=== PATIENT | female | born 1940 | race Caucasian/White ===

== ENCOUNTER 2018-03-30 19:53 | Observation (INO) ==
[2018-03-30 21:35] LABS: BASO# 0.03 X1000 (0.0-0.2); BASO% 0.3 % (0.0-0.8); HEMATOCRIT 39.7 % (37.0-47.0); IMM GRAN# 0.06 X1000 (0.0-0.04); IMM GRAN% 0.6 % (0.0-0.5); LYMPH# 1.03 X1000 (1.2-3.4); LYMPH% 10.8 % (20.5-51.1); MCHC 32.7 g/dL (33-37); MCV 94.5 FL (81-99); MONO# 1.03 X1000 (0.11-0.59); MONO% 10.8 % (1.7-9.3); MPV 10.7 FL (7.4-10.4); NEUT# 7.29 X1000 (1.4-6.5); NEUT% 76.5 % (42.2-75.2); PLT 316 X1000 (130-400); WBC 9.54 X1000 (4.8-10.8)
[2018-03-30 21:51] LABS: AGAP 12; ALBUMIN 3.8 g/dL (3.5-5.0); ALKALINE PHOSPHATASE 87 U/L (32-104); BUN 25 mg/dL (8-22); CALCIUM 9.7 mg/dL (8.8-10.2); CHLORIDE 94 mmol/L (98-107); COSMO 277; CREATININE 1.2 mg/dL (0.5-0.9); ESTIMATED GFR 43; GLUCOSE 216 mg/dL (70-104); GOT 13 U/L (10-30); GPT 7 U/L (10-36); POTASSIUM 4.6 mmol/L (3.5-5.1); SODIUM 133 mmol/L (136-145); TCO2 27 mmol/L (25-35); TOTAL BILIRUBIN < 0.15 mg/dL (0.20-1.00); TOTAL PROTEIN 7.4 g/dL (6.3-8.3)
--- NOTE | 2018-03-30 22:33 | PROVIDER DOCUMENTATION ---
This chart was entered by Oneida Sanchez Scribe, acting as scribe for Gustavo Lawton MD. HPI-General Adult - General Chief Complaint: Ingestion,Accidental Stated Complaint: ACCIDENTAL INGESTION Time Seen by Provider: 03/30/18 21:00 Source: patient, family Allergies/Adverse Reactions: Patient Allergies Allergy/AdvReac Type Severity Reaction Status Date / Time sulfamethoxazole Allergy Severe SWELLING Verified 11/18/17 08:56 [From Bactrim] trimethoprim [From Bactrim] Allergy Severe SWELLING Verified 11/18/17 08:56 morphine Allergy Unknown Verified 11/18/17 08:56 Home Medications: Home Medication List Medication Instructions Recorded Confirmed Last Taken Type Aspirin 81 mg PO DAILY 11/11/12 07/21/17 07/21/17 09:00 History Gabapentin Enacarbil [Horizant] 600 mg PO BID 04/04/15 07/21/17 07/21/17 09:00 History Methocarbamol [Robaxin] 500 mg PO TID 04/04/15 07/21/17 04/03/15 History Amlodipine Besylate/Benazepril 1 each PO DAILY #30 capsule 04/08/15 07/21/17 09:00 Rx [Lotrel 10/20 mg Capsule] L.acidoph,Paracasei, B.lactis 1 each PO 07/21/17 07/21/17 09:00 History [Probiotic] Polyethylene Glycol 3350 [Miralax] 17 gm PO EVERY OTHER DAY 07/21/17 07/21/17 08:00 History Amoxicillin/Potassium Clav 1 ea PO BID #14 tab 07/23/17 Unknown Rx [Augmentin 875-125 Tablet] - History of Present Illness -Gen Adult Nature of Presenting Problems: 77 yof presents to ED c/o of taking 8 300mg Tramadol ER accidently. Pt states she puts her normal morning meds in an empty pill bottle on nightstand to take in the morning and pt had put the bottle of tramadol beside the other bottle and then took the wrong bottle of pills. PT states she immediately knew she took wrong pills and was at the ED within 5 mins. PT has HX of HTN and neuropathy. PT denies nausea, vomitting, diarrhea, chest apin. Severity: reports: mild Onset/Duration: reports: just prior to arrival Review of Systems - Adult - REVIEW OF SYSTEMS - ADULT Constitutional: denies: chills, fever Eyes: reports: no symptoms reported Ears, Nose, Mouth & Throat: reports: no symptoms reported Cardiovascular: reports: no symptoms reported Respiratory: reports: no symptoms reported Gastrointestinal: reports: no symptoms reported Genitourinary: reports: no symptoms reported Musculoskeletal: reports: no symptoms reported Integumentary: reports: no symptoms reported Neurological: reports: no symptoms reported Psychiatric: reports: no symptoms reported Endocrine: reports: no symptoms reported Hematologic/Lymphatic: reports: no symptoms reported Allergic/Immunologic: reports: no symptoms reported All Other Systems: Reviewed and Negative Past History - Adult - PAST MEDICAL HISTORY-ADULT Review of Records: reports: Nursing Assessment Review, Medications Reviewed Major Childhood Illnesses: reports: denies history Cardiovascular: reports: HTN Respiratory: reports: denies history Gastrointestinal: reports: denies history Obstetrical/Gynecological: reports: denies history Genitourinary: reports: denies history Musculoskeletal: reports: arthritis Neurological: reports: denies history Endocrine/Immune: reports: Diabetes Other Conditions: reports: denies history - PRIOR SURGERIES/PROCEDURES Surgical/Procedure History: reports: orthopedic (extremity) (right foot) - PRIOR HOSPITALIZATIONS Prior Hospitalizations: reports: none - IMMUNIZATION STATUS Childhood Immunizations: See Nurse Assessment Flu Vaccine: See Nurse Assessment - FAMILY HISTORY Family History: reviewed, not pertinent Physical Exam-General - PHYSICAL EXAM-ADULT Initial Vital Signs Reviewed: Yes - CONSTITUTIONAL General Appearance: alert, no apparent distress - EYES Eyes: PERRL/EOMI, pink conjunctivae - HEAD, EARS, NOSE, MOUTH & THROAT HENMT: normocephalic/atraumatic, moist mucous membranes, normal ENT inspection - NECK Neck: supple, normal inspection - RESPIRATORY Respiratory: chest non-tender, lungs clear, normal breath sounds - CARDIOVASCULAR Cardiovascular: normal peripheral pulses, regular rate, rhythm, no edema - GASTROINTESTINAL (ABDOMEN) Abdominal Exam: normal bowel sounds, non tender, soft - LYMPHATIC Lymphatic: no adenopathy - MUSCULOSKELETAL Back Exam: normal inspection, no CVA tenderness, no vertebral tenderness Extremity: normal range of motion, non-tender - SKIN Integumentary: normal color, normal turgor, warm/dry - NEUROLOGIC Neurologic: grossly normal, no motor/sensory deficits - PSYCHIATRIC Psych/Mental Status: normal mood/affect, normal thought content, normal thought process, oriented x 3 Progress - PLAN OF CARE/RESULTS Progress/Plan/Lab Results: Vital Signs - 8 hr 03/30/18 19:58 03/30/18 21:16 Temperature 98 F Pulse Rate 111 H 83 Respiratory Rate 18 18 Blood Pressure 121/63 O2 Sat by Pulse Oximetry 99 95 Orders Category Date Time Status Saline Loc NOW Care 03/30/18 21:27 Active CBC WITH ELECTRONIC DIFF [HEME] Stat Lab 03/30/18 21:22 Received CMP [COMPREHENSIVE METABOLIC PANEL] [CHEM] Stat Lab 03/30/18 21:22 Received ua [URINALYSIS PL W/POSS RFLX CULT] [URINALYSIS] Stat Lab 03/30/18 21:08 Uncollected Result Diagrams: 03/30/18 21:22 03/30/18 21:22 - REASSESSMENT Reassessment #1 Time Reassessed: 22:00 (pt had not worsened she was in no distress) Status: unchanged - CONSULTS/PCP/HOSPITALIST Notification #1 *Consult/PCP/Hospitalist*: Time Discussed: 22:46 Consult Disposition: Admit (FOR OBSERVATION) Departure - Departure Date of Disposition Decision: 03/30/18 Time of Disposition Decision: 22:30 DIAGNOSIS: Accidental drug ingestion Qualifiers: Encounter type: initial encounter Qualified Code(s): T50.901A - Poisoning by unspecified drugs, medicaments and biological substances, accidental ( unintentional), initial encounter Disposition: ADMITTED INPATIENT 09 Certified Medical Emergency: Emergent Condition: Stable Referrals and Follow-Ups: None,PCP [Primary Care Provider] - - Critical Care Note This patient required my direct & personal management of CC.: No Attestation - Physician/ ISIS Attestation Patient care was provided by Advanced Practice Provider:: No The physician spent face to face time with patient:: Yes Advanced Practice Provider documentation review:: Supervising physician onsite and consulted in the evaluation and care of this patient. The physician did have a face to face encounter with the patient. This chart was documented by the indicated scribe, (Oneida Sanchez Scribe) and accurately reflects the services I performed and decisions made by me, Gustavo Lawton MD, as attested by the provider's signature.
[2018-03-30 22:40] LABS: BILIRUBIN URINE NEGATIVE (NEGATIVE); BLOOD URINE NEGATIVE (NEGATIVE); CLARITY CLEAR (CLEAR); COLOR YELLOW; GLUCOSE URINE NEGATIVE (NEGATIVE); KETONE URINE NEGATIVE (NEGATIVE); LEUKOCYTES URINE 1+ (NEGATIVE); NITRITE URINE NEGATIVE (NEGATIVE); PH URINE 6.5; PROTEIN URINE NEGATIVE (NEGATIVE); UROBILINOGEN URINE NORMAL
[2018-03-30 22:49] LABS: URINE BACTERIA 4+ /HFP; URINE EPITHELIAL CELLS <10 /HPF (<10); URINE RBC <10 /HPF (<10); URINE SOURCE CLEAN CATCH; URINE WBC <10 /HPF (<10)
[2018-03-30] MEDS ORDERED: ZOFRAN IV ONE (23:20)
[2018-03-31] MEDS ORDERED: TYLENOL PO PRN (00:32)
[2018-03-31] MEDS ORDERED: NS 500 ML IV ONE (00:32)
[2018-03-31] MEDS: NS 1,000 ML IV SCH ×3 (01:06→23:47)
[2018-03-31] MEDS: LOVENOX SUBQ SCH ×2 (01:06→23:48)
[2018-03-31] MEDS: ZOFRAN IV PRN ×4 (05:49→18:58)
[2018-03-31] MEDS: PRILOSEC PO SCH ×2 (06:02→15:09)
[2018-03-31 07:04] LABS: BASO# 0.02 X1000 (0.0-0.2); BASO% 0.2 % (0.0-0.8); EOS# 0.11 X1000 (0.0-0.7); EOS% 1.3 % (0.0-10.0); HEMATOCRIT 39.1 % (37.0-47.0); HEMOGLOBIN 12.6 g/dL (12.0-16.0); IMM GRAN# 0.03 X1000 (0.0-0.04); IMM GRAN% 0.4 % (0.0-0.5); LYMPH# 1.24 X1000 (1.2-3.4); LYMPH% 15.2 % (20.5-51.1); MCH 30.6 PG (27-31); MCHC 32.2 g/dL (33-37); MCV 94.9 FL (81-99); MONO% 9.8 % (1.7-9.3); MPV 10.5 FL (7.4-10.4); NEUT# 5.95 X1000 (1.4-6.5); NEUT% 73.1 % (42.2-75.2); PLT 326 X1000 (130-400); RBC 4.12 XMIL (4.2-5.4); WBC 8.15 X1000 (4.8-10.8)
[2018-03-31 07:18] LABS: CALCIUM 9.1 mg/dL (8.8-10.2); POTASSIUM 4.1 mmol/L (3.5-5.1)
--- NOTE | 2018-03-31 09:45 | EKG Report ---
Test Performed on : 03/31/2018 08:05:34 AM Test Reason : drug overdose Blood Pressure : / mmHG Vent. Rate : 071 BPM Atrial Rate : 071 BPM P-R Int : 160 ms QRS Dur : 110 ms QT Int : 414 ms P-R-T Axes : 047 -34 016 degrees QTc Int : 449 ms Normal sinus rhythm. Left axis deviation Low voltage QRS Nonspecific ST and T wave abnormality Abnormal ECG When compared with ECG of 21-JUL-2017 16:01, Nonspecific T wave abnormality now evident in Anterolateral leads Unconfirmed Result
--- NOTE | 2018-03-31 09:55 | HISTORY AND PHYSICAL ---
CHIEF COMPLAINT: Accidental overdose. HISTORY OF PRESENT ILLNESS: This is a 77-year-old female who presented to the emergency room after taking eight 300 mg tramadol pills. She reports having a bottle of tramadol as well as a bottle with her nighttime medications on her night stand. She picked up the wrong bottle and took the tramadol. She stated that she immediately knew what she did. She was in the ER within 5 minutes of ingestion. Poison Control was called and they recommended that the patient be monitored for 24 hours. At the time of my interview, the patient is sitting up in bed. She is awake and alert. She is oriented and she has no complaints. PAST MEDICAL HISTORY: Diabetes, hypertension, hyperlipidemia. PAST SURGICAL HISTORY: Right hip fracture, right second toe partial amputation. ALLERGIES: Bactrim. HOME MEDICATIONS: A list will be obtained by the nursing staff and once verified, we will restart as is appropriate. REVIEW OF SYSTEMS: Discussed with patient with pertinent positives stated in the HPI. She denies any syncope, dizziness, chest pain, palpitations, shortness of breath, cough, fever, chills, nausea, vomiting, diarrhea, constipation, black or bloody vomitus or stools, hematuria, dysuria, frequency, or urgency. PHYSICAL EXAMINATION: GENERAL: This is a 77-year-old female who is sitting up in the bed in no distress. VITAL SIGNS: Blood pressure is 137/69, heart rate of 72, respirations are 18, temperature is 97.6 degrees oral, with room air saturations of 94%. EYES: Pupils equal, round, and react to light. EOMs are intact. Sclerae anicteric. HENT: Head is normocephalic, atraumatic. Mucous membranes are moist. NECK: Supple with trachea midline. CARDIOVASCULAR: Regular rate and rhythm. S1 and S2 appreciated. She has no lower extremity edema. Peripheral pulses palpable x4 extremities. PULMONARY: Breath sounds are clear with no increased work of breathing noted GASTROINTESTINAL: Abdomen is soft, nontender, nondistended with bowel sounds in all 4 quadrants. NEUROLOGIC: She is alert and oriented x3. SKIN: Warm and dry. LABS: WBC is 9.5, with hemoglobin 13, hematocrit 39.7, and platelets of 316, 000. Sodium is 133, potassium 4.6, BUN 25, creatinine 1.2, with a glucose of 216. Urinalysis is essentially negative. ASSESSMENT: 1. Accidental drug ingestion of eight tramadol. 2. History of diabetes mellitus. 3. Hypertension. 4. Hyperlipidemia. 5. Acute kidney injury. PLAN: 1. The patient has been admitted to the medical/surgical floor and placed on telemetry, which we will continue. We will identify her home medications and continue these as appropriate. She will be placed on pattern of blood glucose with sliding scale insulin. Continue IV hydration recheck labs in the morning Further treatments pending hospital course. . Dictated by JESSIKA Dhillon for Raj Parnell MD This chart was documented by, JESSIKA Dhillon and accurately reflects the services performed, treatment plan and medical decisions as attested by the providers signature Raj Parnell MD. cc: JESSIKA Dhillon MD [facility]
[2018-03-31] MEDS: HUMALOG DOSE (PARKWAY) SUBQ SCH ×3 (13:52→20:31)
[2018-03-31] MEDS ORDERED: ATIVAN IV ONE (20:03)
[2018-03-31] MEDS: GRALISE PO SCH (20:27)
[2018-04-01] MEDS: HUMALOG DOSE (PARKWAY) SUBQ SCH (06:03)
[2018-04-01] MEDS: PRILOSEC PO SCH (06:04)
[2018-04-01 07:51] VITALS: BP 140/70
[2018-04-01] MEDS: ZOFRAN IV PRN (08:09)
[2018-04-01] MEDS: GRALISE PO SCH (08:12)
--- NOTE | 2018-04-01 12:12 | DISCHARGE SUMMARY ---
ADMISSION DATE: 03/30/2018 DISCHARGE DATE: 04/01/2018 DISCHARGE DIAGNOSES: 1. Accidental drug ingestion of tramadol. 2. History of diabetes. 3. History of hypertension. 4. History of dyslipidemia. 5. Acute kidney injury secondary to mild dehydration. HOSPITAL COURSE: Ms. Mendoza is a 77-year-old female who presented to the emergency department after accidental ingestion of 8 tramadol ER 300 mg tablets. She was in the ER within 5 minutes of ingestion and Poison Control was called, who recommended that the patient be monitored for 24 hours. The patient has been monitored for more than 24 hours here at the hospital and has been doing okay. She did have mild dehydration that was corrected with IV fluids. Her condition has improved as far as her dehydration is concerned but, otherwise, she has been overall stable and therefore will be discharged home today. DISCHARGE MEDICATIONS: 1. Gabapentin 600 mg orally twice daily. 2. Amlodipine/benazepril 10 mg/20 mg orally once daily. 3. Aspirin 81 mg orally once daily. 4. Methocarbamol 500 mg orally 3 times a day as needed for muscle spasms. 5. MiraLAX 17 g orally once daily. She will follow up with her PCP in approximately 1 week. cc: Shonda Ny MD
== END 2018-04-01 09:15 | disposition home or self-care (01) ==
LOC: P.MEDSURG 19:53 → P.ED 19:53 → SUATTDRO 19:54 → P.MEDSURG 03-31 10:23
PROVIDERS: ATTEND Internal Medicine
CPT/HCPCS: 80048; 80053; 81001; 82948; 85025; 87088; 93005; 96374; 99285; A9270; J1650; J1815; J2060; J2405; J7030; J7040; XXXXX

== ENCOUNTER 2018-05-29 06:13 | Inpatient (IN) ==
[2018-05-29] MEDS ORDERED: NS 1,000 ML IV ONE ×2 (07:22→09:51)
[2018-05-29 07:39] LABS: BASO# 0.02 X1000 (0.0-0.2); BASO% 0.1 % (0.0-0.8); HEMATOCRIT 44.9 % (37.0-47.0); HEMOGLOBIN 14.8 g/dL (12.0-16.0); IMM GRAN# 0.11 X1000 (0.0-0.04); IMM GRAN% 0.6 % (0.0-0.5); LYMPH# 0.43 X1000 (1.2-3.4); LYMPH% 2.3 % (20.5-51.1); MCH 29.7 PG (27-31); MONO# 1.26 X1000 (0.11-0.59); MONO% 6.8 % (1.7-9.3); MPV 10.9 FL (7.4-10.4); NEUT% 90.2 % (42.2-75.2); PLT 631 X1000 (130-400); RBC 4.99 XMIL (4.2-5.4); RDW 14.2 % (11.5-14.5); WBC 18.42 X1000 (4.8-10.8)
--- NOTE | 2018-05-29 07:59 | Diag Imaging Result Doc PS360 ---
EXAM: CHEST-PORTABLE INDICATION: vomiting TECHNIQUE: One view COMPARISON: 11/11/2012 FINDINGS: There is evidence of prior granulomatous disease, stable. Inspiration is suboptimal. There is trace atelectasis at the left costophrenic angle in the right lower lung zone. The lungs are grossly clear, otherwise. There is stable mild elevation of the right hemidiaphragm. There is no discrete pleural fluid collection or pneumothorax. The cardiomediastinal silhouette and central vasculature are grossly unremarkable. IMPRESSION: Low lung volumes and minimal bibasilar atelectasis. Otherwise, no definite acute pathology. Electronically signed by Sudheer Randall 05/29/2018 7:57 AM
[2018-05-29 08:06] LABS: BE -4.5 mmoll (-3.0-3.0); BLOOD TYPE ARTERIAL; HCO3-(ACT) 21.1 mmoll (20.0-26.0); METHB 1.6 % (0.0-1.5); O2(CT) 17.5 mL/dL (15.0-23.0); PCO2(98.6) 36 mmHg (35-45); PO2(98.6) 54 mmHg (60-100); SAMPLE BLOOD; THB 14.2 g/dL (11.5-17.4); pH(98.6) 7.36 (7.35-7.45)
[2018-05-29 08:09] LABS: ALLEN TEST NO; MODALITY ROOM AIR; O2HB 87.8 % (95.0-99.0)
--- NOTE | 2018-05-29 08:39 | PROVIDER DOCUMENTATION ---
HPI-Abdominal Pain/GI Problem - General Chief Complaint: N/V/D Stated Complaint: vomiting Time Seen by Provider: 05/29/18 07:22 Source: patient, family Allergies/Adverse Reactions: Patient Allergies Allergy/AdvReac Type Severity Reaction Status Date / Time sulfamethoxazole Allergy Severe SWELLING Verified 05/27/18 09:38 [From Bactrim] trimethoprim [From Bactrim] Allergy Severe SWELLING Verified 05/27/18 09:38 morphine Allergy Unknown Verified 05/27/18 09:38 Home Medications: Home Medication List Medication Instructions Recorded Confirmed Last Taken Type Gabapentin Enacarbil [Horizant] 600 mg PO DAILY 04/04/15 05/29/18 07/21/17 09:00 History Methocarbamol [Robaxin] 500 mg PO TID 04/04/15 05/29/18 04/03/15 History L.acidoph,Paracasei, B.lactis 1 each PO DAILY 07/21/17 05/29/18 07/21/17 09:00 History [Probiotic] Polyethylene Glycol 3350 [Miralax] 17 gm PO EVERY OTHER DAY 07/21/17 05/29/18 07/20/17 08:00 History Meclizine [Antivert] 12.5 mg PO TID PRN PRN #20 tab 05/27/18 05/29/18 Unknown Rx Doxycycline 100 mg PO BID #10 tab 06/02/18 Unknown Rx Oxybutynin [Ditropan] 5 mg PO DAILY #30 tab 06/02/18 Unknown Rx Pantoprazole [Protonix] 40 mg PO BID@0700,2100 #120 tab 06/02/18 Unknown Rx Tramadol HCl [Tramadol HCl ER] 300 mg PO DAILY #20 tab.er.24h 06/02/18 Unknown Rx - History of Present Illness-ABD Nature of Presenting Problems: had a visit here 2 days ago dizzy and nauseated returns with nv diarrhea low bp marginal intake after good day yesterday Abdominal Pain Onset Location: reports: generalized abdomen Pain Radiation: reports: no radiation Quality of Pain: reports: fullness Onset/Duration: reports: 5 days ago Timing: reports: still present, getting worse Activities at Onset: reports: light activity Exposure to sick contacts?: No Modifying Factors: improves with: other medication Associated Symptoms: reports: diarrhea, loss of appetite, malaise, vomiting. denies: fever/chills Last BM: this morning Dark Stools Present?: reports: none noticed Rectal Bleeding: reports: none Rectal Pain: reports: none Emesis Description: reports: clear Bruising or Bleeding Gums?: No Similar Symptoms Previously?: Yes Recently seen or treated by another doctor?: No Review of Systems - Adult - REVIEW OF SYSTEMS - ADULT Constitutional: reports: chills, fever Eyes: reports: no symptoms reported Ears, Nose, Mouth & Throat: reports: no symptoms reported Cardiovascular: reports: no symptoms reported Respiratory: reports: no symptoms reported Gastrointestinal: reports: see HPI Genitourinary: reports: no symptoms reported Musculoskeletal: reports: no symptoms reported Integumentary: reports: no symptoms reported Neurological: reports: no symptoms reported Psychiatric: reports: no symptoms reported Endocrine: reports: no symptoms reported Hematologic/Lymphatic: reports: no symptoms reported Allergic/Immunologic: reports: no symptoms reported All Other Systems: Reviewed and Negative Past History - Adult - PAST MEDICAL HISTORY-ADULT Review of Records: reports: Nursing Assessment Review, Medications Reviewed, Social history reviewed & non-contributory. Major Childhood Illnesses: reports: denies history Cardiovascular: reports: HTN Respiratory: reports: denies history Gastrointestinal: reports: denies history Obstetrical/Gynecological: reports: denies history Genitourinary: reports: denies history Musculoskeletal: reports: arthritis Neurological: reports: denies history Endocrine/Immune: reports: Diabetes Other Conditions: reports: denies history - PRIOR SURGERIES/PROCEDURES Surgical/Procedure History: reports: orthopedic (extremity) (right foot) - PRIOR HOSPITALIZATIONS Prior Hospitalizations: reports: none - IMMUNIZATION STATUS Childhood Immunizations: See Nurse Assessment Flu Vaccine: See Nurse Assessment - FAMILY HISTORY Family History: reviewed, not pertinent Physical Exam-General - PHYSICAL EXAM-ADULT Initial Vital Signs Reviewed: Yes - CONSTITUTIONAL General Appearance: mild distress - EYES Eyes: PERRL/EOMI, pink conjunctivae - HEAD, EARS, NOSE, MOUTH & THROAT HENMT: normocephalic/atraumatic. negative: moist mucous membranes - NECK Neck: supple - RESPIRATORY Respiratory: lungs clear. negative: rhonchi, wheezing - CARDIOVASCULAR Cardiovascular: regular rate, rhythm - GASTROINTESTINAL (ABDOMEN) Abdominal Exam: normal bowel sounds, non tender, soft - LYMPHATIC Lymphatic: no adenopathy - MUSCULOSKELETAL Back Exam: normal inspection Extremity: normal range of motion - SKIN Integumentary: normal color - NEUROLOGIC Neurologic: grossly normal - PSYCHIATRIC Psych/Mental Status: oriented x 3 Progress - PLAN OF CARE/RESULTS Progress/Plan/Lab Results: Vital Signs - 8 hr 05/29/18 06:17 05/29/18 06:56 05/29/18 07:29 Temperature 98.1 F Pulse Rate 98 H 101 H Respiratory Rate 18 19 Blood Pressure 92/61 87/53 O2 Sat by Pulse Oximetry 98 91 L 05/29/18 07:51 05/29/18 08:29 Temperature Pulse Rate 94 H 86 Respiratory Rate 18 18 Blood Pressure 98/58 111/60 O2 Sat by Pulse Oximetry 99 97 Laboratory Results - last 24 hr 05/29/18 05/29/18 06:20 07:53 WBC 18.42 H D RBC 4.99 Hgb 14.8 Hct 44.9 MCV 90.0 MCH 29.7 MCHC 33.0 RDW Std Deviation 14.2 Plt Count 631 H MPV 10.9 H Immature Gran % (Auto) 0.6 H Neut % (Auto) 90.2 H Lymph % (Auto) 2.3 L [place] % (Auto) 6.8 Eos % (Auto) 0.0 Baso % (Auto) 0.1 Immature Gran # (Auto) 0.11 H Neut # (Auto) 16.60 H Lymph # (Auto) 0.43 L [place] # (Auto) 1.26 H Eos # (Auto) 0.00 Baso # (Auto) 0.02 Specimen Type ARTERIAL Sample Site L BRACHIAL pH 7.36 pCO2 36 pO2 54 L HCO3 21.1 Base Excess -4.5 L Oxyhemoglobin 87.8 L* ABG O2 Sat (Calculated) 17.5 ABG O2 Saturation 91.0 L ABG Carboxyhemoglobin 1.90 ABG Methemoglobin 1.6 H Ian Test NO A-a O2 Difference 51.0 Total Hemoglobin 14.2 Lactate 1.40 Blood Gas Modality ROOM AIR FiO2 % 21.0 Orders Category Date Time Status CHEST-PORTABLE [RAD] Stat Exams 05/29/18 07:25 Completed ABG [RESP] Routine Lab 05/29/18 07:53 Completed AMYLASE [CHEM] Stat Lab 05/29/18 08:25 Received BLOOD CULTURE [BLDCUL] Stat Lab 05/29/18 07:42 Ordered CBC WITH ELECTRONIC DIFF [HEME] Stat Lab 05/29/18 06:20 Completed COMPREHENSIVE METABOLIC PANEL [CHEM] Stat Lab 05/29/18 08:25 Received LACTATE, PLASMA [CHEM] Stat Lab 05/29/18 08:25 Received LIPASE [CHEM] Stat Lab 05/29/18 08:[address] W/POSS RFLX CULT [URINALYSIS] Stat Lab 05/29/18 07:23 Uncollected 0.9% Sodium Chloride Inj [Ns] 1,000 ml Med 05/29/18 07:22 Discontinued IV 999 mls/hr Result Diagrams: 06/02/18 05:35 06/02/18 05:35 - XRAY 1 XRAY Study: Chest Impression: Abnormal (low lung volume) Departure - Departure Date of Disposition Decision: 05/29/18 Time of Disposition Decision: 07:00 DIAGNOSIS: Nausea & vomiting, Diarrhea Disposition: ADMITTED INPATIENT 09 Certified Medical Emergency: Emergent Condition: Stable - Critical Care Note This patient required my direct & personal management of CC.: No Attestation - Physician/ ISIS Attestation The physician spent face to face time with patient:: Yes Advanced Practice Provider documentation review:: Supervising physician onsite and consulted in the evaluation and care of this patient. The physician did have a face to face encounter with the patient.
[2018-05-29 08:55] LABS: ALBUMIN 3.4 g/dL (3.5-5.0); CALCIUM 8.8 mg/dL (8.8-10.2); CREATININE 1.8 mg/dL (0.5-0.9); TOTAL BILIRUBIN 0.6 mg/dL (0.20-1.00); TOTAL PROTEIN 6.5 g/dL (6.3-8.3)
[2018-05-29] MEDS ORDERED: ZOSYN 3.375 GM in NS 50 ML IV ONE (08:59)
[2018-05-29] MEDS ORDERED: NS 1,000 ML ONE (09:28)
[2018-05-29 09:33] LABS: BILIRUBIN URINE 2+ (NEGATIVE); BLOOD URINE TRACE (NEGATIVE); CLARITY CLEAR (CLEAR); COLOR AMBER; GLUCOSE URINE NEGATIVE (NEGATIVE); KETONE URINE TRACE mg/dL (NEGATIVE); LEUKOCYTES URINE 1+ (NEGATIVE); NITRITE URINE NEGATIVE (NEGATIVE); PH URINE 6.5; PROTEIN URINE 1+(30 mg/dL) mg/dL (NEGATIVE); SP GRAVITY URINE 1.015; UROBILINOGEN URINE 8 mg/dL
[2018-05-29 09:45] LABS: URINE EPITHELIAL CELLS <10 /HPF (<10); URINE RBC <10 /HPF (<10); URINE SOURCE CATH
[2018-05-29 09:47] LABS: URINE BACTERIA 1+ /HFP
[2018-05-29] MEDS ORDERED: TYLENOL PO PRN (11:04)
[2018-05-29] MEDS ORDERED: ZOFRAN IV PRN (11:04)
[2018-05-29 12:47] LABS: OCCULT BLOOD 1 POSITIVE (NEGATIVE)
[2018-05-29] MEDS ORDERED: ANTIVERT PO PRN (13:59)
[2018-05-29] MEDS: ZOSYN 3.375 GM in NS 50 ML IV SCH ×2 (15:24→21:53)
--- NOTE | 2018-05-29 15:47 | HISTORY AND PHYSICAL ---
CHIEF COMPLAINT: Nausea and vomiting. HISTORY OF PRESENT ILLNESS: The majority of the history is per the patient's daughter as patient is somewhat somnolent. She does arouse but does not answer questions. The daughter notes that for the past 2 months, Ms. Mendoza has had increasing nausea, vomiting, diarrhea, decreasing alertness, increasing fatigue. She has been to several different doctors, been to the ER a couple of times. Has not had an EGD but that was the next step. However, this time, her symptoms continued to worsen and therefore they brought her to the ER. She was just recently brought to the ER and had episodes of dizziness, was placed on Antivert. ALLERGIES: Bactrim causing swelling. Morphine causing an unknown reaction. MEDICATIONS: Aspirin, [*] mg daily, Robaxin, Lotrel 12/25, and Antivert recently started. REVIEW OF SYSTEMS: Essentially obtained from the daughter due to the patient not answering questions. The daughter denies any known fevers, chills. Denies any hematemesis, hematochezia, or melena. Denies any urinary complaints, fevers, chills, cough, congestion, shortness of breath. Does note that she has had nausea, vomiting, diarrhea. The diarrhea has just recently started and is becoming more severe. She has had a decrease in oral intake over the past several days. Denies any focalized weakness. FAMILY HISTORY: Noncontributory. PAST MEDICAL HISTORY: Significant for hypertension, diabetes. She has had foot surgery in the past. SOCIAL HISTORY: She is and lives at home. She does not smoke or drink. Her family takes care of her. PHYSICAL EXAMINATION: VITAL SIGNS: Reviewed. Temperature 98.1 degrees, pulse 98, respiratory rate 18, BP 87/53 to 92/61, saturations 91 to 98 percent on room air. GENERAL: Patient is awake, although she does not answer questions. HEENT: Normocephalic. NECK: Supple. CARDIOVASCULAR: Regular rate. CHEST: Clear and unlabored. No crackles. ABDOMEN: Soft. Diffusely tender, more so in the epigastric region. EXTREMITIES: Moves all extremities. NEUROLOGIC: No changes. ASSESSMENT: 1. Nausea and vomiting. 2. Hypotension. 3. Leukocytosis. 4. Heme-positive stool with stable hemoglobin and hematocrit. 5. Diarrhea, negative for Clostridium difficile. 6. Epigastric pain, certainly concerning for peptic ulcer disease. 7. Generalized weakness. 8. Diabetes. PLAN: We will continue the patient in the hospital. We will continue to follow. Place her on IV normal saline at [address] her on a Protonix drip and use Carafate. Hold her blood pressure medication. If her symptoms improve, then she will continue this course. If not, she will need to have an esophagogastroduodenoscopy. cc: Hussain Han MD
[2018-05-29] MEDS: ROBAXIN PO PRN (20:36)
[2018-05-29] MEDS: PATIENT'S OWN MED PO SCH (20:37)
[2018-05-29] MEDS: NS 1,000 ML IV SCH (21:53)
[2018-05-30] MEDS: ZOSYN 3.375 GM in NS 50 ML IV SCH ×5 (03:06→22:39)
[2018-05-30] MEDS: ROBAXIN PO PRN (04:02)
[2018-05-30] MEDS ORDERED: AMLODIPINE BESYLATE PO SCH (09:00)
[2018-05-30] MEDS ORDERED: LOTENSIN PO SCH (09:00)
[2018-05-30] MEDS ORDERED: [UNRECOGNIZED DRUG - OTHER] PO SCH (09:00)
[2018-05-30] MEDS ORDERED: NORVASC PO SCH (09:00)
[2018-05-30] MEDS ORDERED: ASPIRIN PO SCH (09:00)
[2018-05-30] MEDS ORDERED: BENAZEPRIL PO SCH (09:00)
[2018-05-30 09:03] LABS: HEMATOCRIT 38.5 % (37.0-47.0); MCH 29.9 PG (27-31); MCHC 33.8 g/dL (33-37); MCV 88.5 FL (81-99); MPV 10.2 FL (7.4-10.4); RBC 4.35 XMIL (4.2-5.4); RDW 14.1 % (11.5-14.5); WBC 16.89 X1000 (4.8-10.8)
[2018-05-30 09:20] LABS: AGAP 15; ALBUMIN 2.6 g/dL (3.5-5.0); ALKALINE PHOSPHATASE 84 U/L (32-104); BUN 36 mg/dL (8-22); CALCIUM 7.8 mg/dL (8.8-10.2); CHLORIDE 98 mmol/L (98-107); COSMO 280; CREATININE 1.5 mg/dL (0.5-0.9); ESTIMATED GFR 34; GLUCOSE 161 mg/dL (70-104); GOT 21 U/L (10-30); GPT < 5 U/L (10-36); POTASSIUM 4.9 mmol/L (3.5-5.1); SODIUM 134 mmol/L (136-145); TCO2 21 mmol/L (25-35); TOTAL PROTEIN 5.5 g/dL (6.3-8.3)
[2018-05-30] MEDS: SODIUM CHLORIDE 0.9% INJ SCH (10:36)
[2018-05-30] MEDS: PROTONIX IV SCH ×2 (10:36→20:56)
[2018-05-30] MEDS: CULTURELLE PO SCH (10:36)
[2018-05-30] MEDS: PATIENT'S OWN MED PO SCH (10:36)
[2018-05-30] MEDS: NS 1,000 ML IV SCH ×2 (10:37→19:30)
[2018-05-30] MEDS ORDERED: NS 500 ML IV ONE (12:50)
[2018-05-30] MEDS: PATIENT'S OWN MED (CONTROLLED) PO SCH (12:56)
--- NOTE | 2018-05-30 14:11 | PROGRESS NOTE ---
DATE: 05/30/2018 SUBJECTIVE: The patient has no focal complaints. She says her blood pressure is always low, but she takes Lotrel for blood pressure. She does seem to be a bit more lethargic than usual, although again I do not know her baseline very well. But in any case, blood pressure has been low overnight into the 80s. There was a documented 67/36. We had ordered her a bolus. She had a blood pressure earlier this morning of 77, 80. She has been systematically low and tachycardic. OBJECTIVE: Vital Signs: Again, her last blood pressure as she is getting a bolus is about 102/49, but she had one 15 minutes ago, 67/36 with a heart rate in the 110s. She is afebrile. Regular rate and rhythm. Respiratory rate stable. Cardiovascular: Regular rate and rhythm. Pulmonary: Bilateral breath sounds. Clear to auscultation. GI: Soft, nontender, nondistended. Bowel sounds are positive. LABORATORY DATA: Her creatinine is down to 1.5. Her plasma lactate is elevated at 2.5, but that is down from 3.6. Urine was possible 10 to 20 white blood cells and she is heme-positive, although there is no gross bleeding. PROBLEM LIST: 1. Hypotension. She states her baseline blood pressure is low, although she is not able to tell me what. She is on antihypertensives, so I can't imagine her blood pressure is that low. Her blood pressure on 05/27/2018, which is about 3 days ago, was 152/87. Her blood pressure actually runs high. This is a drop for her. I do not think it runs this low. Again she is not mentating that well. In any case, it could be sepsis, it could be hemorrhage. We will continue to follow closely. May be just profound dehydration and volume depletion. We will give her some more fluid. 2. Heme-positive stool. We will monitor her hemoglobin and hematocrit. She may need endoscopy, but at this point, she is not even anemic. 3. Acute kidney injury which is definitely an indication of poor perfusion despite her complaints. We will check electrolytes, renal ultrasound and follow closely. She is empirically on antibiotics with Zosyn. We will continue that and follow. DISPOSITION: Pending her clinical status, I am going to move her to the ICU though as she may require pressors and we will continue to follow closely. cc: Dvaon Daniels MD
[2018-05-30 14:12] LABS: HEMOGLOBIN 11.3 g/dL (12.0-16.0)
[2018-05-30 16:24] LABS: UR CREAT RANDOM 100.8 mg/dL (11-20); UR PROT RANDOM 53.3 mg/dL
[2018-05-30 16:29] LABS: BILIRUBIN URINE NEGATIVE (NEGATIVE); BLOOD URINE NEGATIVE (NEGATIVE); CLARITY CLEAR (CLEAR); COLOR AMBER; GLUCOSE URINE NEGATIVE (NEGATIVE); KETONE URINE TRACE mg/dL (NEGATIVE); LEUKOCYTES URINE TRACE (NEGATIVE); NITRITE URINE NEGATIVE (NEGATIVE); PH URINE 6.5; PROTEIN URINE TRACE mg/dL (NEGATIVE); SP GRAVITY URINE 1.015; UROBILINOGEN URINE 1 mg/dL
[2018-05-30 16:36] LABS: URINE BACTERIA NEGATIVE /HFP; URINE CAST NONE SEEN /LPF; URINE CRYSTAL NONE SEEN /HPF; URINE EPITHELIAL CELLS <10 /HPF (<10); URINE RBC <10 /HPF (<10); URINE SOURCE CATH; URINE WBC <10 /HPF (<10); URINE YEAST NONE SEEN /HPF
[2018-05-31] MEDS: ZOSYN 3.375 GM in NS 50 ML IV SCH ×4 (04:42→21:33)
[2018-05-31] MEDS: NS 1,000 ML IV SCH ×2 (04:42→15:34)
[2018-05-31 07:19] LABS: BASO# 0.02 X1000 (0.0-0.2); BASO% 0.2 % (0.0-0.8); EOS# 0.04 X1000 (0.0-0.7); EOS% 0.4 % (0.0-10.0); HEMATOCRIT 36.9 % (37.0-47.0); HEMOGLOBIN 12.3 g/dL (12.0-16.0); IMM GRAN# 0.04 X1000 (0.0-0.04); IMM GRAN% 0.4 % (0.0-0.5); LYMPH# 0.45 X1000 (1.2-3.4); LYMPH% 4.8 % (20.5-51.1); MCH 29.4 PG (27-31); MCHC 33.3 g/dL (33-37); MCV 88.1 FL (81-99); MONO# 1.07 X1000 (0.11-0.59); MONO% 11.5 % (1.7-9.3); MPV 10.5 FL (7.4-10.4); NEUT# 7.69 X1000 (1.4-6.5); NEUT% 82.7 % (42.2-75.2); PLT 421 X1000 (130-400); RBC 4.19 XMIL (4.2-5.4); RDW 13.9 % (11.5-14.5); WBC 9.31 X1000 (4.8-10.8)
[2018-05-31 07:35] LABS: AGAP 13; ALBUMIN 2.2 g/dL (3.5-5.0); ALKALINE PHOSPHATASE 83 U/L (32-104); BUN 23 mg/dL (8-22); CHLORIDE 101 mmol/L (98-107); COSMO 276; CREATININE 0.8 mg/dL (0.5-0.9); ESTIMATED GFR > 60; GLUCOSE 102 mg/dL (70-104); GOT 20 U/L (10-30); GPT 7 U/L (10-36); POTASSIUM 4.2 mmol/L (3.5-5.1); SODIUM 136 mmol/L (136-145); TCO2 22 mmol/L (25-35); TOTAL PROTEIN 4.4 g/dL (6.3-8.3)
[2018-05-31 07:49] LABS: BANDS 8 % (0-1); LYMPHS 3 % (21-51); MONO 9 % (1-9); SEGS 80 % (42-75)
[2018-05-31] MEDS: SODIUM CHLORIDE 0.9% INJ SCH ×2 (08:32→20:34)
[2018-05-31] MEDS: PROTONIX IV SCH ×2 (08:32→20:34)
[2018-05-31] MEDS: PATIENT'S OWN MED PO SCH (09:36)
[2018-05-31] MEDS: PATIENT'S OWN MED (CONTROLLED) PO SCH (09:36)
[2018-05-31] MEDS: CULTURELLE PO SCH (09:36)
[2018-05-31] MEDS ORDERED: ZOFRAN IV PRN (11:46)
--- NOTE | 2018-05-31 12:17 | PROGRESS NOTE ---
DATE: 05/31/2018 SUBJECTIVE: She is looking a lot better, and not as tired. She just seems like she is looking better. More awake and more alert. OBJECTIVE: Blood pressure says 73/40, but when I was in there it was 120/140 systolic, so I think her blood pressure has improved. She seems to be doing better.Cardiovascular: Regular rate and rhythm. Pulmonary: Bilateral breath sounds. Clear to auscultation. GI: Soft, nontender, and nondistended. Bowel sounds positive. LABORATORY DATA: Her white count is 9. Hemoglobin and hematocrit 12 and 36, platelets 421,000. Her hemoglobin and hematocrit dropped to 11 and 34, and 13 and 35 yesterday. Chemistries: Her creatinine is down to 0.8. Her lactate I guess had come down, but seems to be improved. Her testing was negative as far as her diarrhea has resolved. PROBLEMS: 1. Hypotension, transient, likely related to dehydration. Her blood pressure seems to be stabilizing. I am going to continue to monitor her and follow closely. 2. Heme-positive stool. No gross evidence of bleeding. Her hemoglobin and hematocrit has dropped a bit after hydration, but it has been stable overnight. We are holding off on doing any other instrumentation at this point. 3. Acute kidney injury that also seems to be improved. We will continue electrolytes and follow. 4. Possible sepsis. Although there is not really a clear source, we will continue to monitor. Her stool studies are negative. Urine is negative. Her cultures, blood, and urine are all negative. DISPOSITION: We will start to work on ambulating and seeing how she does. Possible discharge in the next 24 hours. cc: Davon Daniels MD
[2018-06-01] MEDS: ZOSYN 3.375 GM in NS 50 ML IV SCH ×3 (03:48→18:52)
[2018-06-01] MEDS: NS 1,000 ML IV SCH ×2 (03:48→06:04)
[2018-06-01] MEDS ORDERED: DITROPAN PO ONE (05:20)
[2018-06-01 06:51] LABS: BASO# 0.01 X1000 (0.0-0.2); BASO% 0.1 % (0.0-0.8); EOS% 1.2 % (0.0-10.0); HEMOGLOBIN 11.7 g/dL (12.0-16.0); IMM GRAN# 0.06 X1000 (0.0-0.04); IMM GRAN% 0.7 % (0.0-0.5); LYMPH# 0.34 X1000 (1.2-3.4); LYMPH% 4.2 % (20.5-51.1); MCH 28.5 PG (27-31); MCHC 32.5 g/dL (33-37); MCV 87.8 FL (81-99); MONO# 0.83 X1000 (0.11-0.59); MONO% 10.2 % (1.7-9.3); MPV 10.5 FL (7.4-10.4); NEUT# 6.79 X1000 (1.4-6.5); NEUT% 83.6 % (42.2-75.2); PLT 447 X1000 (130-400); RDW 13.8 % (11.5-14.5); WBC 8.13 X1000 (4.8-10.8)
[2018-06-01 07:25] LABS: AGAP 12; BUN 12 mg/dL (8-22); CALCIUM 7.7 mg/dL (8.8-10.2); CHLORIDE 100 mmol/L (98-107); COSMO 267; CREATININE 0.5 mg/dL (0.5-0.9); ESTIMATED GFR > 60; GLUCOSE 121 mg/dL (70-104); POTASSIUM 3.4 mmol/L (3.5-5.1); SODIUM 133 mmol/L (136-145); TCO2 20 mmol/L (25-35)
[2018-06-01] MEDS: CULTURELLE PO SCH (08:31)
[2018-06-01] MEDS: PATIENT'S OWN MED PO SCH (08:31)
[2018-06-01] MEDS: PROTONIX IV SCH ×2 (08:31→22:12)
[2018-06-01] MEDS: SODIUM CHLORIDE 0.9% INJ SCH (08:31)
[2018-06-01] MEDS: PATIENT'S OWN MED (CONTROLLED) PO SCH (08:49)
[2018-06-01] MEDS ORDERED: FLOMAX PO ONE (11:50)
--- NOTE | 2018-06-01 12:27 | PROGRESS NOTE ---
DATE: 06/01/2018 SUBJECTIVE: The patient has no focal complaints. OBJECTIVE: Blood pressure 112/69, heart rate of 80, respiratory rate 16, temperature 97.8 degrees and 99% on 2 L.Cardiovascular: Regular rate and rhythm. Pulmonary: Bilateral breath sounds. Clear to auscultation. GI: Soft, nontender, and nondistended. Bowel sounds are positive. LABORATORY DATA: Her white count is 8, hemoglobin and hematocrit 11 and 36, and platelets 447,000. Potassium 3.4. Rest of the numbers look okay. PROBLEM LIST: 1. Hypotension. That seems to have resolved so we are just going to kind of monitor her at this time. 2. Heme-positive stool, but hemoglobin and hematocrit is stable. No further bleeding. I think we can pursue workup as an outpatient although she is having some GI complaints. We will start off with plain films. Ultrasound may be required if unrevealing or if she continues to have symptoms, or we may need to pursue GI consult. 3. Acute kidney injury that is resolved. 4. Sepsis with possible pneumonia. She is currently only on Zosyn. I guess we will repeat her chest x-ray today too and see how she is doing. DISPOSITION: I anticipate we could probably discharge her tomorrow if she is stable. She is ambulating without difficulty. We are waiting on a floor bed. We will continue to monitor and work on weaning her off O2. She is having some urinary retention, but that may be multifactorial. I have started Flomax and oxybutynin. We will see how she does. cc: Davon Daniels MD
--- NOTE | 2018-06-01 12:54 | Diag Imaging Result Doc PS360 ---
EXAM: CHEST-2 VIEWS HISTORY: hypoxia TECHNIQUE: PA and Lateral chest x-ray COMPARISON: 05/29/2018 FINDINGS: The cardiomediastinal silhouette is within normal limits. The pulmonary vasculature is not congested. There is a developing left lower lobe infiltrate and effusion. Right lung is clear. No pneumothorax is appreciated. There is a calcified granuloma peripheral left lung and atherosclerotic calcification is noted within the aorta . IMPRESSION: New left lower lobe infiltrate and effusion. Electronically signed by Dorcas Galeas 06/01/2018 12:52 PM
--- NOTE | 2018-06-01 13:00 | Diag Imaging Result Doc PS360 ---
EXAM: ABDOMEN FLAT/UPRIGHT HISTORY: nausea/emesis TECHNIQUE: Two views COMPARISON: None. FINDINGS: There is moderate distention of the transverse colon and cecum. Rectal gas is present. No evidence for obstruction. There is no small bowel distention. There is possible thumbprinting of the descending colon which may indicate bowel wall edema. No free air or mass effect is appreciated. IMPRESSION: Moderate distention of the cecum and transverse colon. Possible bowel wall edema involving the descending colon. Colitis is not excluded. Correlate clinically. Electronically signed by Dorcas Galeas 06/01/2018 12:58 PM
[2018-06-01] MEDS: ROBAXIN PO PRN (23:28)
[2018-06-02] MEDS: ZOSYN 3.375 GM in NS 50 ML IV SCH ×2 (00:46→05:00)
[2018-06-02 06:21] LABS: BASO# 0.02 X1000 (0.0-0.2); BASO% 0.2 % (0.0-0.8); EOS# 0.14 X1000 (0.0-0.7); EOS% 1.7 % (0.0-10.0); HEMATOCRIT 33.8 % (37.0-47.0); IMM GRAN# 0.17 X1000 (0.0-0.04); IMM GRAN% 2.1 % (0.0-0.5); LYMPH# 0.64 X1000 (1.2-3.4); MCH 28.7 PG (27-31); MCHC 32.5 g/dL (33-37); MCV 88.3 FL (81-99); MONO% 12.5 % (1.7-9.3); MPV 10.1 FL (7.4-10.4); NEUT# 6.04 X1000 (1.4-6.5); NEUT% 75.5 % (42.2-75.2); PLT 410 X1000 (130-400); RBC 3.83 XMIL (4.2-5.4); RDW 13.8 % (11.5-14.5); WBC 8.01 X1000 (4.8-10.8)
[2018-06-02 06:29] LABS: AGAP 12; BUN 8 mg/dL (8-22); CALCIUM 7.9 mg/dL (8.8-10.2); CHLORIDE 98 mmol/L (98-107); COSMO 268; CREATININE 0.5 mg/dL (0.5-0.9); ESTIMATED GFR > 60; GLUCOSE 122 mg/dL (70-104); POTASSIUM 3.4 mmol/L (3.5-5.1); SODIUM 134 mmol/L (136-145); TCO2 24 mmol/L (25-35)
[2018-06-02] MEDS ORDERED: PROTONIX PO SCH (07:00)
[2018-06-02 07:47] VITALS: BP 126/61
[2018-06-02] MEDS ORDERED: KLOR-CON PO ONE (08:28)
[2018-06-02] MEDS ORDERED: DITROPAN PO SCH (09:00)
[2018-06-02] MEDS: CULTURELLE PO SCH (09:24)
[2018-06-02] MEDS: PATIENT'S OWN MED PO SCH (09:26)
[2018-06-02] MEDS: PATIENT'S OWN MED (CONTROLLED) PO SCH (09:26)
--- NOTE | 2018-06-02 22:03 | DISCHARGE SUMMARY ---
ADMISSION DATE: 05/29/2018 DISCHARGE DATE: 06/02/2018 PRIMARY CARE PHYSICIAN: Judith Mcdonald MD. ADMISSION DIAGNOSES: 1. Nausea and vomiting. 2. Hypotension. 3. Leukocytosis. 4. Heme-positive stool with stable hemoglobin and hematocrit. 5. Diarrhea, negative for Clostridium difficile. 6. Epigastric pain concerning for peptic ulcer disease. 7. Generalized weakness. 8. Diabetes. DISCHARGE DIAGNOSES: 1. Hypotension, resolved. 2. Heme-positive stool, but hemoglobin and hematocrit stable with no further bleeding. 3. Acute kidney injury resolved. 4. Sepsis with possible pneumonia, with left lower lobe infiltrate. SUMMARY OF FINDINGS: This is a 77-year-old female who was brought into the emergency room. The daughter noted that for the past 2 months she has had increasing nausea, vomiting, diarrhea, decreased alertness and increased fatigue. Had seen several doctors and had been to the ER a couple of times. Was admitted, placed on IV hydration, a Protonix drip and Carafate. We held her blood pressure medications. We did an abdomen x-ray on 06/01/2018 that showed moderate distention of the cecum and transverse colon with possible bowel wall edema involving the descending colon. Colitis could not be excluded. Her chest x-ray did show a new left lower lobe infiltrate. She was placed on IV antibiotics. Her white blood cell count has returned to normal. Again, her hemoglobin and hematocrit has remained stable, but it is felt that she needs an outpatient GI workup, but that she can be safely discharged home today. DISCHARGE MEDICATIONS: Gabapentin 600 mg p.o. daily, probiotic 1 p.o. daily, meclizine 12.5 mg p.o. t.i.d. p.r.n., Robaxin 500 mg p.o. t.i.d. A prescription for Ditropan 5 mg p.o. daily #30 with no refills. Prescription for Protonix 40 mg p.o. b.i.d. #120 with no refills, prescription for tramadol 300 mg p.o. daily, doxycycline 100 mg p.o. b.i.d. #10 with no refills. MiraLAX 17 g every other day. FOLLOWUP: She will need to follow up with her primary care physician in 1 to 2 weeks. She will also need to follow up with GI outpatient for her appointment that has been set up for 06/07/2018 at 3:15 p.m. TIME SPENT: This is 33 minute discharge. Dictated by JESSIKA Hung for Abdulkadir Harrison MD cc: JESSIKA Hung MD Jagan Reddy, MD Khurshid Yousuf, MD
== END 2018-06-02 11:34 | disposition home or self-care (01) | DRG 871 ==
LOC: P.ED 06:13 → P.MEDSURG 10:59 → SUATTDRO 10:59 → P.ICU 05-30 15:02 → P.MEDSURG 06-01 14:46
PROVIDERS: ATTEND Internal Medicine
CPT/HCPCS: 36415; 51701; 71010; 71020; 71045; 71046; 74019; 74020; 80048; 80053; 80076; 81001; 82150; 82270; 82550; 82570; 82805; 82948; 83605; 83690; 84156; 84300; 84484; 85014; 85018; 85025; 85027; 87040; 87045; 87046; 87088; 87324; 93005; 94761; 96361; 96365; 99283; 99285; A9270; C9113; J2405; J2543; J7030; J7040; P9612; S0164; XXXXX

== ENCOUNTER 2018-06-07 08:21 | Inpatient (IN) ==
[2018-06-07] MEDS ORDERED: NS 1,000 ML IV ONE ×2 (08:37→14:48)
[2018-06-07] MEDS ORDERED: ZOFRAN IV ONE (08:37)
[2018-06-07 08:48] LABS: BASO# 0.04 X1000 (0.0-0.2); BASO% 0.3 % (0.0-0.8); HEMATOCRIT 39.5 % (37.0-47.0); HEMOGLOBIN 13.1 g/dL (12.0-16.0); IMM GRAN# 0.37 X1000 (0.0-0.04); IMM GRAN% 2.4 % (0.0-0.5); LYMPH# 0.63 X1000 (1.2-3.4); LYMPH% 4.1 % (20.5-51.1); MCH 28.7 PG (27-31); MCHC 33.2 g/dL (33-37); MCV 86.4 FL (81-99); MONO# 0.95 X1000 (0.11-0.59); MONO% 6.2 % (1.7-9.3); MPV 9.5 FL (7.4-10.4); NEUT# 13.24 X1000 (1.4-6.5); PLT 558 X1000 (130-400); RBC 4.57 XMIL (4.2-5.4); RDW 14.2 % (11.5-14.5); WBC 15.23 X1000 (4.8-10.8)
[2018-06-07 09:11] LABS: AGAP 18; ALB/GLOB RATIO 1.3; ALKALINE PHOSPHATASE 128 U/L (32-104); BUN 4 mg/dL (8-22); CALCIUM 9.1 mg/dL (8.8-10.2); CHLORIDE 93 mmol/L (98-107); COSMO 270; CREATININE 0.5 mg/dL (0.5-0.9); ESTIMATED GFR > 60; GLUCOSE 154 mg/dL (70-104); GOT 18 U/L (10-30); GPT 8 U/L (10-36); LIPASE 8 U/L (13-60); POTASSIUM 4.4 mmol/L (3.5-5.1); SODIUM 135 mmol/L (136-145); TCO2 24 mmol/L (25-35); TOTAL BILIRUBIN 0.43 mg/dL (0.20-1.00); TOTAL PROTEIN 5.4 g/dL (6.3-8.3)
[2018-06-07 10:02] LABS: URINE SOURCE CLEAN CATCH
[2018-06-07 10:21] LABS: BILIRUBIN URINE NEGATIVE (NEGATIVE); BLOOD URINE MODERATE (NEGATIVE); CLARITY CLEAR (CLEAR); COLOR YELLOW; GLUCOSE URINE NEGATIVE (NEGATIVE); KETONE URINE 15 mg/dL (NEGATIVE); LEUKOCYTES URINE LARGE (NEGATIVE); NITRITE URINE NEGATIVE (NEGATIVE); PH URINE 6.5; PROTEIN URINE NEGATIVE (NEGATIVE); SP GRAVITY URINE <= 1.005; UROBILINOGEN URINE 0.2 EU/dL (0.2-1.0)
[2018-06-07 10:22] LABS: URINE BACTERIA 1+ /HFP; URINE EPITHELIAL CELLS >10 /HPF (<10); URINE RBC <10 /HPF (<10); URINE WBC <10 /HPF (<10); URINE YEAST PRESENT /HPF
--- NOTE | 2018-06-07 10:54 | Diag Imaging Result Doc PS360 ---
CT ABD/PELVIS W/IV CONT ONLY - 06/07/2018 INDICATION: abdo pain COMPARISON: None FINDINGS: The lung bases are clear. Heart size is top normal. There is severe calcified triple-vessel coronary artery disease. There is also extensive density of the aortic and mitral valve annulus. No pericardial effusion. There are several small radiodense ranula stones in the gallbladder. No gallbladder distention or severe inflammation. No biliary dilation. The liver, pancreas, spleen, adrenals, and kidneys are normal. There is significant wall thickening with some slight surrounding inflammation involving the splenic flexure and the descending colon. This is over a long segment of the colon. There are only a couple small scattered diverticula. There is severe vascular disease of the pelvic arteries. 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 There is also moderate to severe stenosis of the superior mesenteric artery with about 80% narrowing. The femoral arteries are also affected. Urinary bladder is somewhat distended but appears normal with no wall thickening. Uterus is atrophic but otherwise appears normal. Rectum is normal. There is a right femoral neck stabilization dean. 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 There is advanced degeneration throughout the spine. No acute or suspicious bony lesion. IMPRESSION: 1. Colitis of the splenic flexure and descending colon. There is severe vascular disease. Given the location and nature of the colitis, ischemic colitis should BE considered. 2. Numerous small gallstones in the gallbladder but no definite gallbladder inflammation. 3. Advanced vascular disease. This exam was performed using automated exposure control, adjustment of mA or kV according to patient size, and/or use of iterative reconstruction technique Electronically signed by Enrique Hastings 06/07/2018 10:52 AM
--- NOTE | 2018-06-07 11:04 | PROVIDER DOCUMENTATION ---
This chart was entered by Flor Molina Scribe, acting as scribe for Kevin Worley MD. HPI-Abdominal Pain/GI Problem - General Chief Complaint: N/V/D Stated Complaint: N/V/D Time Seen by Provider: 06/07/18 08:23 Source: patient, family (daughter) Allergies/Adverse Reactions: Patient Allergies Allergy/AdvReac Type Severity Reaction Status Date / Time sulfamethoxazole Allergy Severe SWELLING Verified 05/27/18 09:38 [From Bactrim] trimethoprim [From Bactrim] Allergy Severe SWELLING Verified 05/27/18 09:38 morphine Allergy Unknown Verified 05/27/18 09:38 Home Medications: Home Medication List Medication Instructions Recorded Confirmed Last Taken Type Gabapentin Enacarbil [Horizant] 600 mg PO DAILY 04/04/15 06/07/18 07/21/17 09:00 History Methocarbamol [Robaxin] 750 mg PO TID 04/04/15 06/07/18 04/03/15 History Meclizine [Antivert] 12.5 mg PO TID PRN PRN #20 tab 05/27/18 06/07/18 Unknown Rx Doxycycline 100 mg PO BID #10 tab 06/02/18 06/07/18 Unknown Rx Oxybutynin [Ditropan] 5 mg PO DAILY #30 tab 06/02/18 06/07/18 Unknown Rx Pantoprazole [Protonix] 40 mg PO BID@0700,2100 #120 tab 06/02/18 06/07/18 Unknown Rx Tramadol HCl [Tramadol HCl ER] 300 mg PO DAILY #20 tab.er.24h 06/02/18 06/07/18 Unknown Rx - History of Present Illness-ABD Nature of Presenting Problems: Patient is a 77 year old female who presents to the ED via EMS with generalized lower abdominal cramping, nausea, and diarrhea. Patient's daughter states patient was recently admitted to ICU for similar symptoms and was informed patient just had a "bug". Patient was to follow up with Dr. Matson but symptoms worsened this morning per patient's daughter. Denies vomiting, back pain and urinary symptoms. Per patient's daughter, patient had fever, chills and was diaphoretic this morning. Abdominal Pain Onset Location: reports: other (generalized lower) Pain Radiation: reports: no radiation Quality of Pain: reports: cramping Severity in ED: reports: mild Onset/Duration: reports: gradual Timing: reports: still present, getting worse Activities at Onset: reports: light activity Associated Symptoms: reports: diaphoresis, diarrhea, fever/chills (fever and chills), nausea Similar Symptoms Previously?: Yes Recently seen or treated by another doctor?: Yes Review of Systems - Adult - REVIEW OF SYSTEMS - ADULT Constitutional: reports: see HPI, chills, fever. denies: fatique Eyes: reports: no symptoms reported Ears, Nose, Mouth & Throat: reports: no symptoms reported Cardiovascular: reports: no symptoms reported Respiratory: reports: no symptoms reported Gastrointestinal: reports: see HPI, abdominal pain, diarrhea, nausea. denies: vomiting Genitourinary: reports: no symptoms reported. denies: dysuria, flank pain, hematuria Musculoskeletal: reports: no symptoms reported. denies: back pain, muscle aches, neck pain Integumentary: reports: no symptoms reported Neurological: reports: no symptoms reported Psychiatric: reports: no symptoms reported Endocrine: reports: no symptoms reported Hematologic/Lymphatic: reports: no symptoms reported Allergic/Immunologic: reports: no symptoms reported All Other Systems: Reviewed and Negative Past History - Adult - PAST MEDICAL HISTORY-ADULT Review of Records: reports: Nursing Assessment Review, Medications Reviewed, Social history reviewed & non-contributory. Major Childhood Illnesses: reports: denies history Cardiovascular: reports: HTN Respiratory: reports: denies history Gastrointestinal: reports: denies history Obstetrical/Gynecological: reports: denies history Genitourinary: reports: denies history Musculoskeletal: reports: arthritis Neurological: reports: denies history Psychiatric: reports: denies history Endocrine/Immune: reports: Diabetes Other Conditions: reports: denies history - PRIOR SURGERIES/PROCEDURES Surgical/Procedure History: reports: orthopedic (extremity) (right foot) - PRIOR HOSPITALIZATIONS Prior Hospitalizations: reports: none - IMMUNIZATION STATUS Childhood Immunizations: See Nurse Assessment Flu Vaccine: See Nurse Assessment - FAMILY HISTORY Family History: reviewed, not pertinent - SOCIAL HISTORY Smoking: denies Substance Use: denies Physical Exam-General - PHYSICAL EXAM-ADULT Initial Vital Signs Reviewed: Yes - CONSTITUTIONAL General Appearance: alert, no apparent distress. negative: lethargic, slow to respond - HEAD, EARS, NOSE, MOUTH & THROAT HENMT: other (dry mucous membranes). negative: angioedema, hearing deficit - RESPIRATORY Respiratory: chest non-tender, lungs clear, normal breath sounds. negative: crackles, rhonchi - CARDIOVASCULAR Cardiovascular: normal peripheral pulses, regular rate, rhythm. negative: tachycardia, systolic murmur - GASTROINTESTINAL (ABDOMEN) Abdominal Exam: normal bowel sounds, soft, tenderness (diffuse but worse in LLQ and suprapubic). negative: guarding, rigid - MUSCULOSKELETAL Back Exam: normal inspection, no CVA tenderness. negative: muscle spasm - SKIN Integumentary: normal color, normal turgor, warm/dry. negative: cyanosis - PSYCHIATRIC Psych/Mental Status: normal mood/affect, oriented x 3. negative: anxious, par anoid Progress - PLAN OF CARE/RESULTS Progress/Plan/Lab Results: Vital Signs - 8 hr 06/07/18 08:35 Temperature 98.2 F Pulse Rate 97 H Respiratory Rate 18 Blood Pressure 115/78 O2 Sat by Pulse Oximetry 98 Orders Category Date Time Status CT ABD/PELVIS W/IV CONT ONLY [CT] Stat Exams 06/07/18 08:37 Ordered AMYLASE [CHEM] Stat Lab 06/07/18 08:30 Received CBC WITH ELECTRONIC DIFF [HEME] Stat Lab 06/07/18 08:30 Results COMPREHENSIVE METABOLIC PANEL [CHEM] Stat Lab 06/07/18 08:30 Received LIPASE [CHEM] Stat Lab 06/07/18 08:30 Received URINALYSIS [URINALYSIS] Stat Lab 06/07/18 08:36 Uncollected 0.9% Sodium Chloride Inj [Ns] 1,000 ml Med 06/07/18 08:37 Active IV 999 mls/hr Ondansetron [Zofran] Med 06/07/18 08:37 Discontinued 4 mg IV NOW ONE Result Diagrams: 06/07/18 08:30 06/07/18 08:30 - CT/MRI 1 CT Study: Abdomen, Pelvis Impression: See EMR Report ( CT ABD/PELVIS W/IV CONT ONLY - 06/07/2018 INDICATION: abdo pain COMPARISON: None FINDINGS: The lung bases are clear. Heart size is top normal. There is severe calcified triple-vessel coronary artery disease. There is also extensive density of the aortic and mitral valve annulus. No pericardial effusion. There are several small radiodense ranula stones in the gallbladder. No gallbladder distention or severe inflammation. No biliary dilation. The liver, pancreas, spleen, adrenals, and kidneys are normal. There is significant wall thickening with some slight surrounding inflammation involving the splenic flexure and the descending colon. This is over a long segment of the colon. There are only a couple small scattered diverticula. There is severe vascular disease of the pelvic arteries. 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 There is also moderate to severe stenosis of the superior mesenteric artery with about 80% narrowing. The femoral arteries are also affected. Urinary bladder is somewhat distended but appears normal with no wall thickening. Uterus is atrophic but otherwise appears normal. Rectum is normal. There is a right femoral neck stabilization dean. 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 There is advanced degeneration throughout the spine. No acute or suspicious bony lesion. IMPRESSION: 1. Colitis of the splenic flexure and descending colon. There is severe vascular disease. Given the location and nature of the colitis, ischemic colitis should BE considered. 2. Numerous small gallstones in the gallbladder but no definite gallbladder inflammation. 3. Advanced vascular disease. This exam was performed using automated exposure control, adjustment of mA or kV according to patient size, and/or use of iterative reconstruction technique Electronically signed by Enrique Hastings 06/07/2018 10:52 AM 06/07/18 1052 Interpreting Physician: Enrique Hastings MD Dictated Date/Time: 06/07/18 1042 cc: Kevin Worley MD; Chaitanya Mcdonald MD) - CONSULTS/PCP/HOSPITALIST Notification #1 *Consult/PCP/Hospitalist*: Dr. Mcdonald Time Discussed: 11:03 Reason/Comments: Dr. Worley consulted with Dr. Mcdonald about patient. Consult Disposition: Will see in ED, Admit Departure - Departure Date of Disposition Decision: 06/07/18 Time of Disposition Decision: 11:03 DIAGNOSIS: Colitis, UTI (urinary tract infection), Abdominal pain Disposition: ADMITTED INPATIENT 09 Certified Medical Emergency: Emergent Condition: Fair Referrals and Follow-Ups: Chaitanya Mcdonald MD [Primary Care Provider] - - Critical Care Note This patient required my direct & personal management of CC.: No Attestation - Physician/ ISIS Attestation Patient care was provided by Advanced Practice Provider:: No The physician spent face to face time with patient:: Yes Advanced Practice Provider documentation review:: Supervising physician onsite and consulted in the evaluation and care of this patient. The physician did have a face to face encounter with the patient. This chart was documented by the indicated scribe, (Flor Molina Scribe) and accurately reflects the services I performed and decisions made by me, Kevin Worley MD, as attested by the provider's signature.
[2018-06-07] MEDS: PROTONIX IV SCH (20:43)
[2018-06-07] MEDS: FLAGYL 500 MG/NS 500 MG/100 ML IVPB IV SCH (20:43)
[2018-06-07] MEDS: LEVAQUIN 500 MG/D5W 500 MG/100 ML IVPB IV SCH (20:44)
[2018-06-07] MEDS: ULTRAM ER PO SCH (23:36)
[2018-06-07] MEDS: GABAPENTIN ENACARBIL PO SCH (23:37)
--- NOTE | 2018-06-07 23:48 | HISTORY AND PHYSICAL ---
CHIEF COMPLAINT: Nausea, vomiting, diarrhea, abdominal cramps. HISTORY OF PRESENT ILLNESS: She is a 77-year-old white female, recently discharged from the [facility] with diverticulitis. The patient was admitted, in fact, last month 05/29 to 06/02 with heme-positive stool. C. difficile was ruled out, and possible pneumonia on the left side of the lower lobe. She was given IV hydration, Protonix drip. She was given IV antibiotics and sent home on 06/02/2018. She was given probiotics, doxycycline. She came back to the [facility] with above symptoms and she was found to have elevated white cell count, and CT scan showed suspicious for ischemic colitis. As a result, the patient was readmitted to the hospital. PAST MEDICAL HISTORY: 1. Type 2 diabetes, diet controlled. 2. Hyperlipidemia. 3. Hypertension. 4. Osteomyelitis of the right 2nd toe. 5. 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 PAST SURGICAL HISTORY: 1. Right hip fracture. 2. Right thigh total amputation. ALLERGIES: Bactrim. MEDICATIONS: 1. Gabapentin 600 daily. 2. Robaxin 750 t.i.d. 3. Doxycycline 100 p.o. b.i.d. 4. Protonix 40 daily. 5. Tramadol ER 300 daily. 6. Ditropan 5 mg daily. SOCIAL HISTORY: She is for 50 years. 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 Lives in [place]. FAMILY HISTORY: Father at 92 from complications of dementia. Mom of lung cancer at 81. The patient was seen in my office last on 04/07/2018. HEALTH MAINTENANCE: Flu vaccine 2017, pneumococcal 2010, tetanus 2001. Last mammography 2017. Colonoscopy was declined. REVIEW OF SYSTEMS: HEENT: No headache. No vision problem. No earache. No sore throat. Neck: No goiter. No lymphadenopathy. No bruit. Cardiopulmonary: No chest pain, shortness of breath, PND, orthopnea. Gastrointestinal: Abdominal cramps, heme-positive stool, nausea, vomiting, diarrhea. Genitourinary: No history of hesitancy, frequency, dysuria, and chronic pain in both feet. Neurologic: No focal symptoms or weakness. PHYSICAL EXAMINATION: GENERAL: She is slightly tachycardic. Hemodynamics were stable. Afebrile. HEENT: Atraumatic, normocephalic. Pupils equal, reactive to light. TMs are normal. Nose and throat within normal limits. NECK: Supple. No lymphadenopathy. No goiter. CHEST: Bilateral air entry. HEART: Sounds are regular. ABDOMEN: Belly is soft. No signs of peritonitis. Heme-positive stools a week ago. EXTREMITIES: No peripheral edema, cyanosis. NEURO: No obvious neurological deficits. INVESTIGATIONS: White cell count 15.2, hematocrit 39, platelets 558,000. SMA 7: Sodium 135, potassium 4.4, chloride 93, BUN 4, creatinine 0.5. Glucose 154. LFTs were normal. Urinalysis is positive for infection. IMAGING: CT scan of the abdomen and pelvis, ischemic colitis, severe vascular disease, numerous small gallstones in the gallbladder, advanced vascular disease. History of right hip femoral rods noted. ASSESSMENT AND PLAN: 1. A 77-year-old white female admitted to the hospital with nausea and vomiting, bleeding, heme- positive stools for the last 1 week, concerning with ischemic colitis. Plan is check the lactic levels and CT angiogram of the abdomen and pelvis in the morning. IV fluids. Clear liquids. 2. Gallstones, asymptomatic. 3. Diabetes, stable. 4. Gastrointestinal prophylaxis with IV Protonix. 5. Reconcile home medicine. In the meantime, IV Flagyl and IV Levaquin. Based on the CT angiogram of the abdomen, will follow up. 6. Further consultants: Vascular consult. The patient is still in the emergency room waiting to be admitted in the regular floor, and will follow up. cc: Bradley Mcdonald MD
[2018-06-08 06:22] LABS: AGAP 14; ALB/GLOB RATIO 0.9; ALBUMIN 2.6 g/dL (3.5-5.0); ALKALINE PHOSPHATASE 112 U/L (32-104); AMYLASE 22 U/L (20-200); BUN 5 mg/dL (8-22); CALCIUM 8.7 mg/dL (8.8-10.2); CHLORIDE 99 mmol/L (98-107); COSMO 271; CREATININE 0.5 mg/dL (0.5-0.9); ESTIMATED GFR > 60; GLUCOSE 135 mg/dL (70-104); GOT 14 U/L (10-30); GPT 8 U/L (10-36); POTASSIUM 3.8 mmol/L (3.5-5.1); SODIUM 136 mmol/L (136-145); TCO2 23 mmol/L (25-35); TOTAL BILIRUBIN 0.32 mg/dL (0.20-1.00); TOTAL PROTEIN 5.4 g/dL (6.3-8.3)
[2018-06-08 06:25] LABS: URINE SOURCE CLEAN CATCH
[2018-06-08 06:41] LABS: BILIRUBIN URINE NEGATIVE (NEGATIVE); BLOOD URINE NEGATIVE (NEGATIVE); COLOR YELLOW; GLUCOSE URINE NEGATIVE (NEGATIVE); KETONE URINE 40 mg/dL (NEGATIVE); LEUKOCYTES URINE NEGATIVE (NEGATIVE); NITRITE URINE NEGATIVE (NEGATIVE); PH URINE 6.5; PROTEIN URINE NEGATIVE (NEGATIVE); SP GRAVITY URINE 1.017; TURBIDITY URINE CLEAR (CLEAR); UROBILINOGEN URINE NORMAL (NORMAL)
[2018-06-08 06:54] LABS: UR EPITHELIAL CELLS <10 /HPF (<10); URINE BACTERIA NEGATIVE /HPF; URINE WBC <10 /HPF (<10)
[2018-06-08 07:45] LABS: HEMOGLOBIN 12.3 g/dL (12.0-16.0); MCH 29.1 PG (27-31); MCHC 32.4 g/dL (33-37); MCV 89.8 FL (81-99); MPV 9.9 FL (7.4-10.4); RBC 4.23 XMIL (4.2-5.4); RDW 14.5 % (11.5-14.5); WBC 15.06 X1000 (4.8-10.8)
[2018-06-08 07:47] LABS: URINE YEAST PRESENT
--- NOTE | 2018-06-08 08:50 | Diag Imaging Result Doc PS360 ---
EXAM: CT ANGIOGRAM ABD/PELIVS W/CON 06/08/2018 HISTORY: PAD with Ischemic colitis TECHNIQUE: This exam was performed using automated exposure control, adjustment of mA or kV according to patient size, and/or use of iterative reconstruction technique. COMMENT: The current examination is compared with the previous study of 06/07/2018. 3-D MIPS were performed. There is platelike atelectasis in both lower lobes and the inferior portion of the lingula. This is slightly worse than on the previous study. There are atherosclerotic calcifications in the visualized portion of the thoracic aorta as well as the abdominal aorta. There is no evidence of aneurysm. There is calcification at the ostia of the celiac and the superior mesenteric artery. There is significant stenosis in the sagittal plane in the ostial celiac artery with apparent poststenotic dilatation. There is at least 50% diameter stenosis in both the axial and sagittal planes in the ostial portion of the superior mesenteric artery. The inferior mesenteric artery is patent. There are two left renal arteries. There are calcifications in the ostium of the right renal artery and at the ostia of both left renal arteries. There is no evidence of nephrolithiasis. There is cholelithiasis with small stones layering dependently. No evidence of para cholecystic fluid is present. The liver is hypodense suggesting fatty change. There is mucosal thickening present in the left colon. There are air-fluid levels present throughout the colon. The transverse and ascending colon do not demonstrate any wall thickening. There is marked atherosclerotic calcification in the common iliac arteries. The left common iliac is slightly distended at over 14 mm. Both external iliac arteries are patent. The common femoral and visualized superficial and deep femoral arteries are patent bilaterally. There has been previous internal fixation of the right proximal femur. IMPRESSION: Atherosclerotic changes as described. The possibility of significant stenosis of the ostium of the superior mesenteric artery cannot be excluded. 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 Left-sided colitis. Electronically signed by Wilder Santos 06/08/2018 8:48 AM
[2018-06-08] MEDS: FLAGYL 500 MG/NS 500 MG/100 ML IVPB IV SCH ×2 (10:00→17:47)
--- NOTE | 2018-06-08 11:29 | Diag Imaging Result Doc PS360 ---
EXAM: CHEST-1 VIEW HISTORY: pss nital managemnt protocol TECHNIQUE: Chest single view COMPARISON: 06/01/2018 FINDINGS: The lungs are well expanded except for atelectasis in the left costophrenic angle. The heart is not enlarged. The vessels are not distended. There are no infiltrates. No effusion identified. There is a granuloma in the lower left lung. IMPRESSION: No acute abnormality. Electronically signed by Ruddy Samuel 06/08/2018 11:27 AM
[2018-06-08 12:02] LABS: BASO# 0.03 X1000 (0.0-0.2); BASO% 0.2 % (0.0-0.8); EOS# 0.03 X1000 (0.0-0.7); EOS% 0.2 % (0.0-10.0); HEMOGLOBIN 11.6 g/dL (12.0-16.0); IMM GRAN% 1.5 % (0.0-0.5); LYMPH# 0.65 X1000 (1.2-3.4); LYMPH% 4.9 % (20.5-51.1); MCH 28.9 PG (27-31); MCHC 33.1 g/dL (33-37); MCV 87.1 FL (81-99); MONO# 1.26 X1000 (0.11-0.59); MONO% 9.4 % (1.7-9.3); MPV 9.5 FL (7.4-10.4); NEUT# 11.18 X1000 (1.4-6.5); NEUT% 83.8 % (42.2-75.2); PLT 533 X1000 (130-400); RBC 4.02 XMIL (4.2-5.4); RDW 14.2 % (11.5-14.5); WBC 13.35 X1000 (4.8-10.8)
[2018-06-08 12:08] LABS: INR 1.06; PROTIME 14.7 Seconds (11.0-16.0); PTT 29.2 Seconds (22.3-41.8)
[2018-06-08 12:32] LABS: AGAP 12; ALB/GLOB RATIO 0.8; ALBUMIN 2.4 g/dL (3.5-5.0); ALKALINE PHOSPHATASE 112 U/L (32-104); BUN 4 mg/dL (8-22); CALCIUM 8.4 mg/dL (8.8-10.2); CHLORIDE 95 mmol/L (98-107); CK PROFILE 21 U/L (24-173); COSMO 264; CREATININE 0.5 mg/dL (0.5-0.9); ESTIMATED GFR > 60; GLUCOSE 174 mg/dL (70-104); GOT 12 U/L (10-30); GPT 5 U/L (10-36); POTASSIUM 3.6 mmol/L (3.5-5.1); SODIUM 131 mmol/L (136-145); TCO2 24 mmol/L (25-35); TOTAL BILIRUBIN 0.24 mg/dL (0.20-1.00); TOTAL PROTEIN 5.4 g/dL (6.3-8.3)
[2018-06-08] MEDS: ROBAXIN PO SCH ×2 (17:47→19:58)
--- NOTE | 2018-06-08 19:13 | GASTROENTEROLOGY CONSULTATION ---
DATE: 06/08/2018 REASON FOR CONSULTATION: Nausea, vomiting, diarrhea, and abdominal cramping HPI: Ms. Mendoza is a 77 year old woman with PMH of HTN, HLD, NIDDM2, OA, GERD, peripheral neuropathy, and recent diagnosis of vertigo who presents with intermittent NBNB emesis and 2.5 weeks of watery diarrhea. The patient report associated "upset" stomach and generalized weakness. She denies fever, chills, sweats, rectal bleeding, melena, or weight loss. She was recently hospitalized at [facility] [place] with diverticulitis. She was also diagnosed with possible pneumonia and was discharged on probiotic and doxycycline. No prior colonoscopy. She says her symptoms have improved with PPI and meclizine treatment. 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 PSH: Right hip replacement FH: No FHx of GI malignancies SH: No T/E/D MEDS: 1. Gabapentin 600 daily. 2. Robaxin 750 t.i.d. 3. Doxycycline 100 p.o. b.i.d. 4. Protonix 40 daily. 5. Tramadol ER 300 daily. 6. Ditropan 5 mg daily 7. Meclizine ALL: morphine, bactrim PHYSICAL EXAMINATION: VS: T98.2 HR 97 RR 18 BP 111/75 O2 sat 96% RA GEN: awake, alert, NAD, poor historian HEENT: AT/NC, anicteric, MMM NECK: supple, no JVD CV: RRR, no murmurs PULM: CTAB no wheezing ABD: soft, NT/ND, NABS, no rebound or guarding EXT: no cce NEURO: nonfocal LABS: WBC 15 hgb 12.3 plts 533 Na 136 K 3.8 Cl 99 CO2 23 BUN 5 Cr 0.5 albumin 2.6, otherwise LFTs unremarkable lactate 1.1 UA neg recent cdiff 05/29 negative CTAP 06/07 IMPRESSION: 1. Colitis of the splenic flexure and descending colon. There is severe vascular disease. Given the location and nature of the colitis, ischemic colitis should BE considered. 2. Numerous small gallstones in the gallbladder but no definite gallbladder inflammation. 3. Advanced vascular disease. CTA abdomen 06/08 IMPRESSION: Atherosclerotic changes as described. The possibility of significant stenosis of the ostium of the superior mesenteric artery cannot be excluded. 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 Left-sided colitis. A/P: Ms. Mendoza is a 77 year old woman with PMH of HTN, HLD, NIDDM2, OA, GERD, peripheral neuropathy, and recent diagnosis of vertigo who presents with intermittent NBNB emesis and 2.5 weeks of watery diarrhea. Found to have colitis in watershed area of the colon likely from ischemic colitis. Notable leukocytosis and thrombocytosis. BCx2 pending. Abdominal exam benign. She is on empiric levaquin and flagyl. Also, received IVFs and on clear liquid diet. Her symptoms have improved significantly #Probable ischemic colitis - maintain clear liquid diet - continue IVFs - on empiric levaquin and flagyl, continue for 7-10 days, can transition to PO upon discharge - avoid NSAIDs or meds that can cause ischemic colitis - patient will ultimately need colonoscopy to assess for healing, which can be done as outpatient #Leukocytosis: from above #PAD: patient had moderate stenosis of SMA and celiac artery #Gallstones: asymptomatic #Vertigo: on meclizine #GERD: continued with PPI Thank you for this consult. Will follow with you. cc: Bradley Mcdonald MD [facility]
[2018-06-08] MEDS: SODIUM CHLORIDE 0.9% INJ SCH (19:56)
[2018-06-08] MEDS: LEVAQUIN 500 MG/D5W 500 MG/100 ML IVPB IV SCH (19:56)
[2018-06-08] MEDS: PROTONIX IV SCH (19:56)
[2018-06-08] MEDS: ULTRAM ER PO SCH (19:57)
[2018-06-08] MEDS: GABAPENTIN ENACARBIL PO SCH (19:58)
--- NOTE | 2018-06-08 21:21 | PROGRESS NOTE ---
DATE: 06/08/2018 SUBJECTIVE: Patient is doing a little better. Discussed with the patient's daughter. The patient is going for CT abdominal angiogram. No signs of active bleeding noted. OBJECTIVE: Vital signs: Temperature is 98 degrees, pulse is 105. Vitals are stable. HEENT Exam: Within normal limits. Chest: Clear. Cardiovascular: Heart sounds are regular. Abdomen: Belly is soft. No signs of peritonitis. LABORATORY DATA: CBC: White cell count 13, hematocrit 35, platelets 533,000, PT/INR is normal. SMA 7: Sodium 131, potassium 3.6, BUN 4, creatinine 0.5, calcium 8.4, and carotid Dopplers were negative. Lactate 1.4. Urinalysis is clear. Chest x-ray was stable. Blood cultures are pending. Angiogram of the abdomen: Significant stenosis of superior mesenteric artery and significant stenosis of celiac artery at left-sided colitis. ASSESSMENT AND PLAN: Lower gastrointestinal bleeding due to ischemic colitis. Continue on Levaquin and Flagyl. Consult with Dr. Tirado. The patient is on clear liquids. We will repeat the labs in the morning and discussed the plan of care with the family. LEVEL OF DOCUMENTATION: 25 minutes. cc: Bradley Mcdonald MD
[2018-06-09] MEDS ORDERED: HALL'S COUGH LOZENGE MT PRN (00:19)
[2018-06-09] MEDS: GABAPENTIN ENACARBIL PO SCH ×2 (01:54→20:23)
[2018-06-09] MEDS: ROBAXIN PO SCH ×4 (01:55→20:16)
[2018-06-09] MEDS: ULTRAM ER PO SCH ×2 (01:56→20:16)
[2018-06-09] MEDS: FLAGYL 500 MG/NS 500 MG/100 ML IVPB IV SCH ×3 (02:10→16:18)
[2018-06-09] MEDS ORDERED: ZOFRAN IV ONE (05:22)
[2018-06-09 06:30] LABS: BASO# 0.02 X1000 (0.0-0.2); BASO% 0.2 % (0.0-0.8); EOS# 0.06 X1000 (0.0-0.7); EOS% 0.5 % (0.0-10.0); HEMATOCRIT 34.5 % (37.0-47.0); HEMOGLOBIN 11.6 g/dL (12.0-16.0); IMM GRAN% 1.8 % (0.0-0.5); LYMPH# 0.68 X1000 (1.2-3.4); MCH 28.9 PG (27-31); MCHC 33.6 g/dL (33-37); MCV 85.8 FL (81-99); MONO# 1.18 X1000 (0.11-0.59); MONO% 10.5 % (1.7-9.3); MPV 9.4 FL (7.4-10.4); NEUT# 9.12 X1000 (1.4-6.5); PLT 506 X1000 (130-400); RBC 4.02 XMIL (4.2-5.4); RDW 14.3 % (11.5-14.5); WBC 11.26 X1000 (4.8-10.8)
[2018-06-09 06:58] LABS: AGAP 14; BUN 6 mg/dL (8-22); CALCIUM 8.4 mg/dL (8.8-10.2); CHLORIDE 99 mmol/L (98-107); COSMO 273; CREATININE 0.5 mg/dL (0.5-0.9); ESTIMATED GFR > 60; GLUCOSE 131 mg/dL (70-104); POTASSIUM 3.6 mmol/L (3.5-5.1); SODIUM 137 mmol/L (136-145); TCO2 24 mmol/L (25-35)
[2018-06-09 07:36] LABS: SED RATE 10 mm/hr (0-20)
[2018-06-09] MEDS: ANTIVERT PO PRN ×3 (09:42→20:16)
--- NOTE | 2018-06-09 12:17 | GASTROENTEROLOGY PROGRESS NOTE ---
DATE: 06/09/2018 SUBJECTIVE: Patient currently resting in bed. She denies any fevers, rigors or chills. She is eating better this morning. She moved her bowels yesterday. OBJECTIVE: Vital signs: Temperature 98.9 degrees, pulse of 94, respiratory rate 18, blood pressure 104/59, satting 94% on room air. Body weight of 145 pounds. BMI 26.5 kg/m2. General: The patient is moderately malnourished, lying in bed in no acute distress. HEENT: Mild pallor. No icterus. Neck: Supple. Abdomen: Soft. Discomfort in the pelvic region. No rebound or guarding. Extremities: No cyanosis, clubbing or edema. Neurologic: Neuro-aguilera, she is alert, awake, oriented x3. LABS: Her hemoglobin and hematocrit is 11.7 and 34.4, white count 11.26, platelet count of 506. Sodium 137, potassium 3.6, chloride 99, bicarbonate of 24, anion gap of 14. BUN of 6, creatinine 0.5, glucose of 131, calcium 8.4. AST 12, ALT 5, alkaline phosphatase 112, total protein is 5.4, albumin of 2.4. Lactate of 1.4. Blood cultures x2 were drawn on 06/08/2018 and the results are currently pending. IMPRESSION AND PLAN: 1. Probable ischemic colitis. The CT scan showed evidence of colitis. In the splenic flexure and descending colon, there is severe vascular disease. We will continue intravenous Flagyl and Levaquin. She will continue on clear liquid diet. She will continue intravenous fluids. She will avoid any nonsteroidal anti-inflammatory drugs. 2. History of constipation. Continue MiraLAX 17 g twice daily at home. I discussed that with the patient's daughter at bedside. 3. Leukocytosis. Continue to watch for now. We will follow blood cultures. 4. Peripheral arterial disease. She has moderate stenosis of the SMA and celiac artery, aware. 5. Gallstones on the CT scan, aware. This is to be managed by the primary medical team. She may need a surgical consultation if it becomes symptomatic. 6. Vertigo. She is on meclizine. 7. Reflux disease. She is on proton pump inhibitors. The patient will follow up in the clinic in 4 weeks after discharge. At that time, we will plan for colonoscopy. The above plan of care was discussed with the patient and her daughter at bedside. All questions were answered. Please call us with any further questions. cc: MD Bradley Walden MD
[2018-06-09] MEDS: PROTONIX IV SCH (20:17)
[2018-06-09] MEDS: SODIUM CHLORIDE 0.9% INJ SCH (20:17)
[2018-06-09] MEDS: LEVAQUIN 500 MG/D5W 500 MG/100 ML IVPB IV SCH (20:18)
--- NOTE | 2018-06-09 21:47 | PROGRESS NOTE ---
DATE: 06/09/2018 SUBJECTIVE: The patient is a little bit lethargic, able to go to the bathroom. Appreciate a GI consult and continues to have diarrhea. OBJECTIVE: Vital signs: Temperature is 99.2 degrees, pulse 98, blood pressure is 117/76. HEENT Exam: Within normal limits. Neck: Supple. Chest: Clear. Cardiovascular: Heart sounds are regular. Abdomen: Belly is soft, nontender. No signs of peritonitis. INVESTIGATIONS: White cell count 11.26, hematocrit 34.5, platelets 506,000, sodium 137, potassium 3.6, BUN 6, creatinine 0.5, glucose 131. Blood cultures are pending. ASSESSMENT AND PLAN: 1. Nausea, vomiting and diarrhea due to colitis most likely ischemic waiting for a GI workup. Had a colonoscopy currently on Levaquin and Flagyl. 2. Gastrointestinal prophylaxis with IV Protonix, and patient is able to ambulate on clear liquids. 3. Chronic back pain. Reconcile home medications. Also consider using low dose of Lovenox since she is not actively bleeding. Discussed the plan of care. We will coordinate with GI doorperson and also we will use probiotics. Follow up. LEVEL OF DOCUMENTATION: 25 minutes. cc: Bradley Mcdonald MD
[2018-06-10 00:04] LABS: URINE SOURCE CATH
[2018-06-10 00:49] LABS: BILIRUBIN URINE NEGATIVE (NEGATIVE); BLOOD URINE SMALL (NEGATIVE); COLOR YELLOW; GLUCOSE URINE NEGATIVE (NEGATIVE); KETONE URINE TRACE mg/dL (NEGATIVE); LEUKOCYTES URINE SMALL (NEGATIVE); NITRITE URINE NEGATIVE (NEGATIVE); PROTEIN URINE NEGATIVE (NEGATIVE); SP GRAVITY URINE 1.002; TURBIDITY URINE CLEAR (CLEAR); UROBILINOGEN URINE NORMAL (NORMAL)
[2018-06-10 01:01] LABS: UR EPITHELIAL CELLS <10 /HPF (<10); URINE BACTERIA NEGATIVE /HPF; URINE CASTS NONE SEEN; URINE CRYSTALS NONE SEEN; URINE WBC <10 /HPF (<10); URINE YEAST PRESENT
[2018-06-10 01:02] LABS: URINE SMALL ROUND CELLS NONE SEEN
[2018-06-10] MEDS: FLAGYL 500 MG/NS 500 MG/100 ML IVPB IV SCH ×3 (03:01→18:02)
[2018-06-10] MEDS: LOVENOX SUBQ SCH (09:55)
[2018-06-10] MEDS: CULTURELLE PO SCH (09:55)
[2018-06-10] MEDS: ROBAXIN PO SCH ×3 (09:55→21:43)
[2018-06-10] MEDS: ANTIVERT PO PRN (10:19)
--- NOTE | 2018-06-10 20:08 | PROGRESS NOTE ---
DATE: 06/10/2018 SUBJECTIVE: The patient had last night trouble peeing. Murphy was placed. She has some bladder retention. The daughter was upset about a putting the Murphy in. She is not able to ambulate. Physical therapy has been advised. Appreciate GI consult. OBJECTIVE: On examination, she has a low-grade fever. Temperature is 95 degrees. Blood pressure is on the low side. HEENT Exam within normal limits. Neck is supple. Chest is clear. Heart sounds are regular. Belly is soft, nontender. Good bowel sounds. I did examine the patient twice. Bladder scan 100 mL. No neurological deficits. LABORATORY DATA: None reported. Urine cultures are pending. Blood cultures are negative. ASSESSMENT AND PLAN: 1. Nausea, vomiting and diarrhea due to colitis, most likely ischemic. Dr. Matson wants to do 4 weeks of treatment for a colonoscopy. 2. Deep vein thrombosis prophylaxis with Lovenox. 3. Continue intravenous antibiotics with Levaquin and Flagyl. 4. Gastrointestinal prophylaxis with intravenous Protonix. 5. Continue gastrointestinal soft diet. 6. Chronic pain, on gabapentin and Robaxin. 7. Bladder retention. Follow up on urinalysis and culture and sensitivity. 8. Check the postvoid residual urine. Discussed the plan of care with the family. Level of documentation 25 minutes. cc: Bradley Mcdonald MD
--- NOTE | 2018-06-10 20:31 | PROVIDER PROGRESS NOTE ---
Progress Note SUBJECTIVE: No acute overnight events. Afebrile. No N/V. Abdominal pain improving. No rectal bleeding or diarrhea. Tolerating GI soft diet. OBJECTIVE: Last Vital Signs Temp 99.0 F 06/10/18 19:47 Pulse 98 H 06/10/18 19:47 Resp 24 06/10/18 19:47 BP 87/45 06/10/18 19:47 Pulse Ox 95 06/10/18 19:47 Height 5 ft 2 in Weight 145 lb Ms. Mendoza is a 77 year old woman with PMH of HTN, HLD, NIDDM2, OA, GERD, peripheral neuropathy, and recent diagnosis of vertigo who presents with intermittent NBNB emesis and 2.5 weeks of watery diarrhea. Found to have colitis in watershed area of the colon likely from ischemic colitis. Notable leukocytosis and thrombocytosis. BCx2 NGTD. Abdominal exam benign. She is on empiric levaquin and flagyl. #Probable ischemic colitis - continue low residue diet and supportive care - cont empiric levaquin and flagyl, continue for 7-10 days, can transition to PO upon discharge - avoid NSAIDs or meds that can cause ischemic colitis - patient will ultimately need colonoscopy to assess for healing, which can be done as outpatient #Leukocytosis: improving; from above #PAD: patient had moderate stenosis of SMA and celiac artery on imaging; unlikely acute mesenteric ischemia #Gallstones: asymptomatic #Vertigo: on meclizine #GERD: continued with PPI Will follow with you.
[2018-06-10] MEDS: GABAPENTIN ENACARBIL PO SCH (21:42)
[2018-06-10] MEDS: PROTONIX IV SCH (21:43)
[2018-06-10] MEDS: LEVAQUIN 500 MG/D5W 500 MG/100 ML IVPB IV SCH (21:43)
[2018-06-10] MEDS: ULTRAM ER PO SCH (21:43)
[2018-06-10] MEDS: SODIUM CHLORIDE 0.9% INJ SCH (21:44)
[2018-06-11] MEDS: FLAGYL 500 MG/NS 500 MG/100 ML IVPB IV SCH ×3 (02:59→18:19)
[2018-06-11 07:01] LABS: BASO# 0.01 X1000 (0.0-0.2); BASO% 0.1 % (0.0-0.8); EOS# 0.07 X1000 (0.0-0.7); EOS% 0.9 % (0.0-10.0); HEMATOCRIT 34.9 % (37.0-47.0); HEMOGLOBIN 11.7 g/dL (12.0-16.0); IMM GRAN# 0.15 X1000 (0.0-0.04); LYMPH# 0.75 X1000 (1.2-3.4); LYMPH% 9.9 % (20.5-51.1); MCH 28.8 PG (27-31); MCHC 33.5 g/dL (33-37); MONO% 15.8 % (1.7-9.3); MPV 9.7 FL (7.4-10.4); NEUT# 5.43 X1000 (1.4-6.5); NEUT% 71.3 % (42.2-75.2); PLT 401 X1000 (130-400); RBC 4.06 XMIL (4.2-5.4); RDW 14.5 % (11.5-14.5); WBC 7.61 X1000 (4.8-10.8)
[2018-06-11 08:06] LABS: AGAP 11; BUN 4 mg/dL (8-22); CALCIUM 8.2 mg/dL (8.8-10.2); CHLORIDE 95 mmol/L (98-107); COSMO 264; CREATININE 0.6 mg/dL (0.5-0.9); ESTIMATED GFR > 60; GLUCOSE 120 mg/dL (70-104); POTASSIUM 3.3 mmol/L (3.5-5.1); SODIUM 133 mmol/L (136-145); TCO2 27 mmol/L (25-35)
[2018-06-11] MEDS: ROBAXIN PO SCH ×3 (10:10→20:55)
[2018-06-11] MEDS: LOVENOX SUBQ SCH (10:11)
[2018-06-11] MEDS: CULTURELLE PO SCH (10:11)
[2018-06-11] MEDS: ANTIVERT PO PRN (10:11)
[2018-06-11] MEDS ORDERED: KLOR-CON PO ONE (12:29)
--- NOTE | 2018-06-11 13:40 | PROGRESS NOTE ---
DATE: 06/11/2018 SUBJECTIVE: The patient is a little better. Emptying the bladder. Still has 780 mL urine output. OBJECTIVE: Vitals: Temperature is 98 degrees, vitals are stable. HEENT: Within normal limits. Chest: Clear. Heart: Heart sounds are regular. Abdomen: Soft, nontender. Good bowel sounds. No obvious deficits. INVESTIGATIONS: CBC: White cell count 7.6, hematocrit 34, platelets 401,000. SMA 7: Sodium 133, potassium 3.3, chloride 95, BUN 11, creatinine 0.6. Calcium 8.2. Blood cultures and urine cultures are negative. ASSESSMENT AND PLAN: 1. Bladder retention. Continue to monitor, bladder scan. 2. Hypokalemia. Replace the potassium. 3. Deep vein thrombosis prophylaxis with Lovenox. 4. Ischemic colitis, Levaquin and Flagyl. We will closely monitor this neurogenic bladder on a daily basis. LEVEL OF DOCUMENTATION: 25 minutes. cc: Bradley Mcdonald MD
--- NOTE | 2018-06-11 15:30 | GASTROENTEROLOGY PROGRESS NOTE ---
DATE: 06/11/2018 SUBJECTIVE: Resting in bed. Her daughter present at bedside. The patient is feeling better. She denies any nausea, vomiting, denies any fevers, rigors, chills. She moved her bowel this morning, which was brown. She did not see any blood in the stools. OBJECTIVE: Vitals: Temperature 99.3 degrees, pulse of 97, respiratory 16, blood pressure 123/75, satting 98% on room air. Body weight of 145 pounds. BMI 26.5 kg. General appearance: This is a moderately well-nourished female, lying in bed in no acute distress. HEENT: Pale with no icterus. Neck: Supple. Abdomen: Soft, nontender, nondistended. No guarding or rebound. Extremities: No cyanosis, clubbing. Neurologic: Neuro-aguilera alert, awake, and answers questions. Her family was at bedside. LABS: Hemoglobin and hematocrit is 11.7 and 34.9, white count of 7.61, platelet count of 401. Sodium 133, potassium 3.3, chloride 95, bicarbonate 20, anion gap 11. BUN of 4, creatinine 0.6, glucose of 120, calcium is 8.2. Blood culture negative x2 after 48 hours. Urine culture is no growth. IMPRESSION AND PLAN: 1. Probable ischemic colitis. We will continue with the conservative care. She will continue on empiric Levaquin and Flagyl for a total of 7 to 10 days. She will avoid constipation. 2. She will follow up in the clinic as an outpatient and then, at that time, we will decide about performing colonoscopy to assess for healing. 3. Leukocytosis, improving. 4. Peripheral arterial disease. She has moderate stenosis of the SMA and celiac artery imaging, aware. 5. Gallstones, currently asymptomatic. 6. Vertigo. She is on meclizine. 7. Reflux disease. She is on proton pump inhibitors. Continue to follow gastroesophageal reflux lifestyle changes. 8. Non insulin-dependent diabetes mellitus. She is on sliding scale insulin. 9. History of hypertension, hyperlipidemia. Aware. 10. History of peripheral neuropathy. Aware. 11. Diarrhea is improving. 12. Deep vein thrombosis prophylaxis with Lovenox. 13. We gave her Culturelle 1 capsule p.o. daily. 14. She is on eucalyptus oil/menthol lozenges by mouth as needed for irritable bowel syndrome. Above plan discussed with the patient and the family at bedside. All questions answered. Please call us with any further questions. cc: MD Bradley Walden MD
[2018-06-11] MEDS ORDERED: CALMOSEPTINE OINTMENT TOP PRN (20:29)
[2018-06-11] MEDS: PROTONIX IV SCH (20:54)
[2018-06-11] MEDS: SODIUM CHLORIDE 0.9% INJ SCH (20:54)
[2018-06-11] MEDS: LEVAQUIN 500 MG/D5W 500 MG/100 ML IVPB IV SCH (20:54)
[2018-06-11] MEDS: ULTRAM ER PO SCH (20:55)
[2018-06-11] MEDS: GABAPENTIN ENACARBIL PO SCH (20:55)
[2018-06-12] MEDS: FLAGYL 500 MG/NS 500 MG/100 ML IVPB IV SCH ×3 (02:29→17:35)
[2018-06-12] MEDS: METAMUCIL PO SCH (09:21)
[2018-06-12] MEDS: CULTURELLE PO SCH (09:21)
[2018-06-12] MEDS: ICAR-C PO SCH ×2 (09:21→20:38)
[2018-06-12] MEDS: LOVENOX SUBQ SCH (09:21)
[2018-06-12] MEDS: CENTRUM SILVER PO SCH (09:21)
[2018-06-12] MEDS: ROBAXIN PO SCH ×3 (09:21→20:38)
--- NOTE | 2018-06-12 13:33 | PROGRESS NOTE ---
DATE: 06/12/2018 SUBJECTIVE: The patient is doing better. However, postvoid residual urine pretty high, requiring self catheterization. PHYSICAL EXAMINATION: Vitals: Low-grade fever. Vitals are stable. HEENT: Within normal limits. Neck: Supple. Chest: Clear. Heart: Sounds are regular. Abdomen: Belly is soft, nontender. ASSESSMENT AND PLAN: 1. Ischemic colitis. Continue IV Levaquin and Flagyl. 2. Neurogenic bladder with retention. Dr. Sandoval consult. 3. Continue self catheterization. 4. Hypokalemia. Replace the potassium. Recheck the labs in the morning. Out of the bed with Physical Therapy. Discuss with Dr. Sandoval and follow up his recommendations. LEVEL OF DOCUMENTATION: 25 minutes. cc: Bradley Mcdonald MD
--- NOTE | 2018-06-12 15:25 | CONSULTATION ---
DATE OF CONSULTATION: 06/12/2018 ATTENDING/REFERRING PHYSICIAN: Dr. Mcdonald. HISTORY OF PRESENT ILLNESS: This 77-year-old female was admitted several days ago with ischemic colitis/diverticulitis. The patient has been having problems voiding. Her postvoid checks have been 800 and 900 mL. The patient denies any problems voiding prior to her colon problems. She was admitted late last month to another facility for diverticulitis. The patient again developed abdominal pain with nausea, vomiting, and diarrhea, and was admitted. Her recorded postvoid checks have been 800 and 900 mL. The patient denies any previous urologic surgery. She denies problems with urinary tract infections or kidney stones. She has had no hematuria. She does have a long history of diabetes. She states she feels like she keeps it under control. PAST MEDICAL HISTORY: Peripheral arterial disease, gastroesophageal reflux disease, diabetes, hypertension, elevated cholesterol, peripheral neuropathy, history of osteomyelitis, cholelithiasis. PAST SURGICAL HISTORY: Right hip replacement, partial amputation of right 2nd toe, teeth extraction with dentures. SOCIAL HISTORY: No tobacco or alcohol use. ALLERGIES: She is allergic to sulfa drugs. REVIEW OF SYSTEMS: She denies any problems with chest pains, dizziness, or pulmonary problems. She states she does not feel like she has a urinary infection. PHYSICAL EXAMINATION: General: A normally-developed, well-nourished, age apparent, white female, oriented in all ways and cooperative. HEENT: Normal for age. Lungs: Clear. Cardiovascular: Regular rate and rhythm. Abdomen: Protuberant, soft, nontender. No hepatosplenomegaly or masses. Normal bowel sounds. : Normal external female. Atrophic mucosa. No adnexal masses. Cervix and uterus not well palpated. Bladder is palpably normal. Neurologic: No focal deficits. Extremities: No CCE. LABORATORY EVALUATION: White count of 7.61, hemoglobin 11.7, hematocrit of 34.9, and platelets are 401,000. Serum electrolytes have a sodium of 133, potassium 3.3, chloride 95, bicarb 27, BUN 4, creatinine 0.6. IMPRESSION: Patient with history of urinary retention with a very distended bladder. RECOMMENDATIONS: 1. Continue Flomax at 0.4 mg a day as started. 2. Place Murphy catheter and leave it indwelling for at least 4 days. This will allow the bladder to regain its tone, if that would happen. Discussed with the patient that a neurogenic bladder can occur secondary to diabetes or colon problems. Thank you for this consultation. cc: MD Bradley Colvin MD
--- NOTE | 2018-06-12 18:04 | GASTROENTEROLOGY PROGRESS NOTE ---
DATE: 06/12/2018 SUBJECTIVE: Patient resting in bed. She denies any new complaints. Her daughter was present at bedside. She has been showing signs of improvement. She denies any blood in the stools. She has started to eat a little bit this morning. She did spike a temperature today which is the 1st time around 12 noon and about 99.9 Fahrenheit. Vitals: Temperature 99.9 degrees, pulse 102, respiratory 20, blood pressure 130/82, saturating 92% on room air, body weight of 145 pounds. General Appearance: Moderately-built lying in bed in no acute distress. HEENT: Pale conjunctivae. No icterus. Neck: Supple. Abdomen: Soft. Discomfort in the left lower quadrant. No rebound or guarding. Extremities: No cyanosis, clubbing. Neuro: She is alert, awake, oriented x3. LABS: Hemoglobin and hematocrit is 11.7 and 34.9, white count of 7.6, platelet count 401,000. These labs are from yesterday. Her urine culture showing yeast. Blood culture times negative 48 hours on 06/08/2018. IMPRESSION AND PLAN: 1. Probable ischemic colitis. Will continue on Levaquin and Flagyl. She has spiked temperature while on antibiotics, this could be from urinary yeast infection. We will discuss with Dr. Mcdonald. 2. She will need outpatient follow-up for EGD and colonoscopy document healing of the colitis. Clinically she is showing improvement. 3. Peripheral arterial disease. She has moderate stenosis of superior mesenteric artery and celiac artery on imaging and we are aware of that. 4. Leukocytosis improved as per yesterday's labs. 5. Reflux prophylaxis on PPIs, she will need to follow gastroesophageal reflux life changes. 6. Mild anemia, continue watch for now. 7. History of peripheral neuropathy aware. 8. Deep vein thrombosis prophylaxis Lovenox. 9. Gallstone asymptomatic and aware. 10. She was started on iron C b.i.d. and multivitamin once daily for anemia. 11. Will start her on Metamucil 1 capsule every day to help with her constipation. At home the patient will need to take MiraLAX once daily to prevent constipation. 12. We will follow along. The above plan discussed with the patient and the family at bedside and all questions were answered. Please call us with any further questions. cc: MD Bradley Walden MD MTDD
[2018-06-12] MEDS: ULTRAM ER PO SCH (20:37)
[2018-06-12] MEDS: GABAPENTIN ENACARBIL PO SCH (20:37)
[2018-06-12] MEDS: LEVAQUIN 500 MG/D5W 500 MG/100 ML IVPB IV SCH (20:40)
[2018-06-12] MEDS: PROTONIX IV SCH (20:40)
[2018-06-12] MEDS: SODIUM CHLORIDE 0.9% INJ SCH (20:40)
[2018-06-13] MEDS: FLAGYL 500 MG/NS 500 MG/100 ML IVPB IV SCH ×3 (02:30→17:56)
[2018-06-13 05:42] LABS: BASO# 0.02 X1000 (0.0-0.2); BASO% 0.3 % (0.0-0.8); EOS# 0.07 X1000 (0.0-0.7); EOS% 1.1 % (0.0-10.0); HEMATOCRIT 36.1 % (37.0-47.0); IMM GRAN# 0.14 X1000 (0.0-0.04); IMM GRAN% 2.1 % (0.0-0.5); LYMPH# 0.96 X1000 (1.2-3.4); LYMPH% 14.7 % (20.5-51.1); MCH 28.8 PG (27-31); MCHC 33.2 g/dL (33-37); MCV 86.6 FL (81-99); MONO% 13.8 % (1.7-9.3); MPV 9.5 FL (7.4-10.4); NEUT# 4.43 X1000 (1.4-6.5); PLT 478 X1000 (130-400); RBC 4.17 XMIL (4.2-5.4); RDW 15.1 % (11.5-14.5); WBC 6.52 X1000 (4.8-10.8)
[2018-06-13 06:28] LABS: AGAP 10; BUN 4 mg/dL (8-22); CALCIUM 8.5 mg/dL (8.8-10.2); CHLORIDE 101 mmol/L (98-107); COSMO 270; CREATININE 0.6 mg/dL (0.5-0.9); ESTIMATED GFR > 60; GLUCOSE 128 mg/dL (70-104); POTASSIUM 3.8 mmol/L (3.5-5.1); SODIUM 136 mmol/L (136-145); TCO2 25 mmol/L (25-35)
[2018-06-13] MEDS: ICAR-C PO SCH ×2 (10:03→20:14)
[2018-06-13] MEDS: CULTURELLE PO SCH (10:03)
[2018-06-13] MEDS: LOVENOX SUBQ SCH (10:04)
[2018-06-13] MEDS: DIFLUCAN PO SCH (10:04)
[2018-06-13] MEDS: CENTRUM SILVER PO SCH (10:04)
[2018-06-13] MEDS: METAMUCIL PO SCH (10:04)
[2018-06-13] MEDS: ROBAXIN PO SCH ×3 (10:04→20:14)
--- NOTE | 2018-06-13 14:26 | GASTROENTEROLOGY PROGRESS NOTE ---
DATE: 06/13/2018 SUBJECTIVE: Resting in bed. She is feeling better. Her daughter present bedside. She is eating better. She denies any fevers, rigors or chills. Abdominal pain is resolved. Vitals: Temperature 98 degrees, pulse 103, respiratory rate 14, blood pressure 119/70, saturating 96 on room air. General Appearance: Moderately-built lying in bed in no acute distress. HEENT: Mild pallor, no icterus. Neck: Supple. Abdomen: Soft, nontender, nondistended. No guarding or rebound. Extremities: No cyanosis, clubbing. Neuro: She is alert, awake, oriented. LABS: Hemoglobin and hematocrit 12 and 36, white count 6.5, platelet count of 478,000, sodium 132, potassium 3.8, chloride 101, anion gap 10, BUN of 4, creatinine 0.6, glucose of 128, calcium is 8.5. Urine culture showing yeast. IMPRESSION AND PLAN: 1. Urinary tract infection with yeast, she is put on fluconazole per the primary team. 2. Probable ischemic colitis. She will continue Levaquin, Flagyl for 10 days, she will continue Culturelle 1 capsule p.o. b.i.d. for 6 weeks. 3. She will need outpatient EGD and colonoscopy document healing of the ulcer. We will follow up in clinic in 4 weeks of discharge. 4. Peripheral arterial disease. 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 5. History of constipation, patient MiraLAX on discharge once daily, she also consume high-fiber diet. 6. Leukocytosis resolved. 7. Gastrointestinal prophylaxis PPIs. 8. Anemia is improving. Will continue to follow. 9. History of peripheral neuropathy aware. 10. Deep vein thrombosis prophylaxis with Lovenox. 11. Asymptomatic gallstones aware. 12. The above plans discussed the patient and family at bedside and all questions. Please call us with any further questions. cc: MD Bradley Walden MD MTDD
[2018-06-13] MEDS: ULTRAM ER PO SCH (20:14)
[2018-06-13] MEDS: LEVAQUIN 500 MG/D5W 500 MG/100 ML IVPB IV SCH (20:14)
[2018-06-13] MEDS: GABAPENTIN ENACARBIL PO SCH (20:14)
[2018-06-13] MEDS: SODIUM CHLORIDE 0.9% INJ SCH (20:14)
[2018-06-13] MEDS: PROTONIX IV SCH (20:14)
--- NOTE | 2018-06-13 20:37 | PROGRESS NOTE ---
DATE: 06/13/2018 SUBJECTIVE: The patient is anxious to go home. Appreciated urology consult. OBJECTIVE: Vital Signs: Temperature is 98 degrees, tachycardic. Vitals are now stable. HEENT: Exam within normal limits. Neck: Supple. Chest: Clear. Heart: Sounds are regular. Abdomen: Belly is soft. Murphy was placed. INVESTIGATIONS: CBC: White cell count 6.5, hematocrit 36, platelets 478,000. Sodium 136, potassium 3.8, BUN 4, creatinine 0.6, glucose 128. ASSESSMENT AND PLAN: 1. Left-sided colitis. Continue on Levaquin and Flagyl. 2. Urinary tract infection, on Diflucan. 3. Deep venous thrombosis prophylaxis with Lovenox. 4. Gastrointestinal prophylaxis with intravenous Protonix. 5. Bladder retention. Continue on the Flomax and Murphy catheter as per Dr. Sandoval. 6. Continue the pain management. 7. Out of the bed with physical therapy. 8. Will discuss with the family. LEVEL OF DOCUMENTATION: 25 minutes. cc: Bradley Mcdonald MD
[2018-06-14] MEDS: FLAGYL 500 MG/NS 500 MG/100 ML IVPB IV SCH ×3 (02:34→17:00)
[2018-06-14] MEDS: ROBAXIN PO SCH ×3 (08:16→20:30)
[2018-06-14] MEDS: CULTURELLE PO SCH (08:16)
[2018-06-14] MEDS: LOVENOX SUBQ SCH (08:17)
[2018-06-14] MEDS: ICAR-C PO SCH ×2 (08:17→20:30)
[2018-06-14] MEDS: METAMUCIL PO SCH (08:17)
[2018-06-14] MEDS: CENTRUM SILVER PO SCH (08:17)
[2018-06-14] MEDS: DIFLUCAN PO SCH (08:17)
--- NOTE | 2018-06-14 11:45 | PROVIDER PROGRESS NOTE ---
Progress Note SUBJECTIVE: No acute overnight events. No N/V/F, CP, SOB, abdominal pain, diarrhea, constipation, rectal bleeding. Tolerating diet. Has urinary retention. OBJECTIVE: Last Vital Signs Temp 98.2 F 06/14/18 07:28 Pulse 117 H 06/14/18 07:32 Resp 14 06/14/18 07:28 BP 99/60 06/14/18 07:32 Pulse Ox 97 06/14/18 07:28 Height 5 ft 2 in Weight 145 lb GEN: awake, alert, NAD, pleasant HEENT: anicteric, MMM, EOMI NECK: supple, no JVD CV: RRR, no murmurs PULM: CTAB, no wheezing ABD: soft NT/ND, NABS, no rebound or guarding EXT: no cce NEURO: nonfocal LABS: none today A/P: Ms. Mendoza is a 77 year old woman with PMH of HTN, HLD, NIDDM2, OA, GERD, peripheral neuropathy, vertigo who presented with ischemic colitis on imaging. Her diarrhea and abdominal pain ahs resolved since admission. She is on empiric levaquin and flagyl. Course c/b urinary retention #Probable ischemic colitis - continue low residue diet and supportive care - cont empiric levaquin and flagyl, continue for 7-10 days; then stop - avoid NSAIDs or meds that can cause ischemic colitis - outpatient colonoscopy to be scheduled with Dr. Matson upon discharge #Urinary retention: unlikely related to colitis; defer mgmt to primary #PAD: patient had moderate stenosis of SMA and celiac artery on imaging; unlikely acute mesenteric ischemia #Gallstones: asymptomatic #Vertigo: on meclizine #GERD: continued with PPI Will sign off. Please call with questions. Follow-up with Dr. Matson in 2-4 weeks to schedule outpatient colonoscopy.
[2018-06-14] MEDS: GABAPENTIN ENACARBIL PO SCH (20:28)
[2018-06-14] MEDS: LEVAQUIN 500 MG/D5W 500 MG/100 ML IVPB IV SCH (20:30)
[2018-06-14] MEDS: PROTONIX IV SCH (20:30)
[2018-06-14] MEDS: ULTRAM ER PO SCH (20:31)
[2018-06-14] MEDS: SODIUM CHLORIDE 0.9% INJ SCH (20:31)
--- NOTE | 2018-06-14 21:17 | PROGRESS NOTE ---
DATE: 06/14/2018 SUBJECTIVE: The patient is slowly getting better. PHYSICAL EXAMINATION: Vital Signs: Slightly orthostatic and vitals are stable. HEENT: Within normal limits. Neck: Supple. Chest: Clear. Cardiovascular: Heart sounds are regular. Abdomen: Belly is soft, nontender. Murphy was placed. Slowly improving. LABORATORY: No labs were done. ASSESSMENT AND PLAN: 1. Ischemic colitis, stable. Discussed with the plan. We will do the outpatient colonoscopy. 2. Bladder retention status post Murphy, on Flomax. 3. Follow up on orthostatic hypertension. Discussed with family and continue present IV antibiotics. 4. Yeast infection, on Diflucan. Slowly change to the Flagyl and get the outpatient colonoscopy. We will attempt to discharge after consulting with the family. LEVEL OF DOCUMENTATION: 15 minutes. cc: Bradley Mcdonald MD
[2018-06-15] MEDS: ANTIVERT PO PRN (00:14)
[2018-06-15] MEDS: FLAGYL 500 MG/NS 500 MG/100 ML IVPB IV SCH ×2 (01:37→09:13)
[2018-06-15 07:41] VITALS: BP 112/61
[2018-06-15] MEDS: METAMUCIL PO SCH (09:12)
[2018-06-15] MEDS: CENTRUM SILVER PO SCH (09:12)
[2018-06-15] MEDS: CULTURELLE PO SCH (09:12)
[2018-06-15] MEDS: ROBAXIN PO SCH (09:12)
[2018-06-15] MEDS: ICAR-C PO SCH (09:12)
[2018-06-15] MEDS: DIFLUCAN PO SCH (09:13)
[2018-06-15] MEDS: LOVENOX SUBQ SCH (09:13)
--- NOTE | 2018-06-17 05:35 | DISCHARGE SUMMARY ---
ADMISSION DATE: 06/07/2018 DISCHARGE DATE: 06/15/2018 DISCHARGING DIAGNOSIS: Left-sided abdominal pain due to ischemic colitis. SECONDARY DIAGNOSES: 1. History of gallstones. 2. Type 2 diabetes, diet-controlled. 3. Bladder retention due to neurogenic bladder, with indwelling Murphy catheter. 4. Deconditioning. 5. Chronic pain due to history of right hip fracture, hallux valgus deformities of right foot. CONSULTANTS: 1. Dr. Matson. 2. Dr. Tirado. 3. Dr. Sandoval. BRIEF HISTORY: Please see the H and P that was done on 06/07/2018. In brief, she is a 77-year-old white female, recently discharged from the hospital from [place], came in with left-sided abdominal pain, nausea, vomiting, diarrhea, heme-positive stool. The patient had a CT showing ischemic colitis due to underlying vascular disease. The patient never had a colonoscopy. HOSPITAL COURSE: The patient was given IV fluids, IV Levaquin and Flagyl. Dr. Matson felt she needs endoscopy after 4 weeks. Hospital course was prolonged due to neurogenic bladder, around 800 mL. Initial straight catheterization was done, unable to empty the bladder. Dr. Sandoval was consulted. The patient was placed on indwelling Mruphy catheter with leg bag, and Flomax, and follow up as an outpatient. The patient had some yeast in the urine for which Diflucan was given. Blood cultures were negative. The patient was ambulating well. Continues to need some home health care as an outpatient. At the time of discharge the patient is stable and the labs are as follows. The white cell count came down from 15,000 to 6,500, hematocrit 36, platelets 478,000. Sodium 136, potassium 3.8, chloride 101, BUN 4, creatinine 0.6, glucose 138. RADIOLOGY PROCEDURES: Chest x-ray, no acute abnormality. CT scan of the abdomen and pelvis on 06/07 splenic flexure colitis and descending colon due to vascular disease, numerous small gallstones, advanced vascular disease. CT abdominal angiogram atherosclerotic changes, significant stenosis at the SMA, possible significant stenosis at celiac artery. DISCHARGE INSTRUCTIONS: The patient was discharged home in stable condition with the following instructions. Gabapentin enacarbil 600 mg daily. Robaxin 750 t.i.d. Meclizine as needed for nausea. Protonix 40 daily. Tramadol ER 300 daily. Icar C Plus 1 tablet p.o. b.i.d. Levaquin 500 daily for 10 days. Diflucan 100 mg for 7 days. Indwelling Murphy catheter with leg bag. Outpatient home health care. Follow up in my office in 1 week as well as Dr. Sandoval, and recheck colonoscopy in 4 weeks. cc: MD Dr. Lori Meneses Dr., Dr.
== END 2018-06-15 10:45 | disposition home health service (06) | DRG 394 ==
LOC: SUPCPDRO → ED 08:21 → EDIPHOLD 17:30 → 4N 21:45
PROVIDERS: ADMIT Internal Medicine; ATTEND Internal Medicine
CPT/HCPCS: 71010; 71045; 74174; 74177; 80048; 80053; 81001; 82150; 82550; 82948; 83605; 83690; 84484; 85025; 85027; 85610; 85651; 85730; 87040; 87088; 96361; 96365; 96368; 96375; 97162; 97530; 99285; A9270; C9113; J1650; J1956; J2405; J7030; Q9967; S0030; S0164; XXXXX

== ENCOUNTER 2018-06-21 08:23 | Inpatient (IN) ==
[2018-06-21] MEDS ORDERED: NS 1,000 ML IV ONE ×2 (08:52→22:19)
[2018-06-21] MEDS ORDERED: NS 1,000 ML IV SCH (09:00)
--- NOTE | 2018-06-21 09:04 | PROVIDER DOCUMENTATION ---
HPI-Abdominal Pain/GI Problem - General Chief Complaint: Diarrhea Stated Complaint: abd Time Seen by Provider: 06/21/18 08:42 Allergies/Adverse Reactions: Patient Allergies Allergy/AdvReac Type Severity Reaction Status Date / Time sulfamethoxazole Allergy Severe SWELLING Verified 06/21/18 09:15 [From Bactrim] trimethoprim [From Bactrim] Allergy Severe SWELLING Verified 06/21/18 09:15 morphine Allergy Unknown Verified 06/21/18 09:15 Home Medications: Home Medication List Medication Instructions Recorded Confirmed Last Taken Type Gabapentin Enacarbil [Horizant] 600 mg PO DAILY 04/04/15 06/21/18 07/21/17 09:00 History Methocarbamol [Robaxin] 750 mg PO TID 04/04/15 06/21/18 06/06/18 History Meclizine [Antivert] 12.5 mg PO TID PRN PRN #20 tab 05/27/18 06/21/18 06/06/18 Rx Tramadol HCl [Tramadol HCl ER] 300 mg PO DAILY #20 tab.er.24h 06/02/18 06/21/18 06/06/18 Rx Fluconazole [Diflucan] 100 mg PO DAILY #7 tab 06/15/18 06/21/18 Unknown Rx Iron Carbonyl/Ascorbic Acid 1 ea PO BID #60 tab 06/15/18 06/21/18 Unknown Rx [Icar-C] Levofloxacin [Levaquin] 500 mg PO DAILY #10 tab 06/15/18 06/21/18 Unknown Rx Pantoprazole [Protonix] 40 mg PO BID@0700,2100 #120 tab 06/15/18 06/21/18 Unknown Rx - History of Present Illness-ABD Nature of Presenting Problems: hx from daughter. She says that pt was dicharged from hosp here a week ago due to colon problems "hardening of the arteries of her intestines", was seen by Dr Noriega. Since D/C, she has had increasing weakness, is not taking po. Her stools have gone from dark chocolate, to black, to now green. All of thest have been loose. She klaudia not been getting up, is developing bed sore, is pale. Has not been to F/U with urology due to weakness, has F/U with Dr Mcdonald tomorrow. Has had low grade fever past 3 days, highest is 101 (2 days ago) No cough, has had nausea once, no vomiting. Old chart reviewed, she was dx with ischemic coloitis, initially on Levaquin and Flagyl, was D/C on Levaquin. Quality of Pain: reports: none Timing: reports: still present Review of Systems - Adult - REVIEW OF SYSTEMS - ADULT Constitutional: reports: see HPI Eyes: reports: no symptoms reported Ears, Nose, Mouth & Throat: reports: no symptoms reported Cardiovascular: reports: no symptoms reported Respiratory: reports: no symptoms reported Gastrointestinal: reports: see HPI Musculoskeletal: reports: no symptoms reported Integumentary: reports: see HPI Neurological: reports: see HPI Psychiatric: reports: no symptoms reported Endocrine: reports: no symptoms reported Hematologic/Lymphatic: reports: no symptoms reported Allergic/Immunologic: reports: no symptoms reported Past History - Adult - PAST MEDICAL HISTORY-ADULT Review of Records: reports: Medications Reviewed Major Childhood Illnesses: reports: denies history Cardiovascular: reports: HTN Respiratory: reports: denies history Gastrointestinal: reports: other (ischemic colitis) Obstetrical/Gynecological: reports: denies history Genitourinary: reports: denies history Musculoskeletal: reports: arthritis Neurological: reports: denies history Endocrine/Immune: reports: Diabetes Other Conditions: reports: denies history - PRIOR SURGERIES/PROCEDURES Surgical/Procedure History: reports: orthopedic (extremity) (right foot) - PRIOR HOSPITALIZATIONS Prior Hospitalizations: reports: none - IMMUNIZATION STATUS Childhood Immunizations: See Nurse Assessment Flu Vaccine: See Nurse Assessment - FAMILY HISTORY Family History: reviewed, not pertinent Physical Exam-General - CONSTITUTIONAL General Appearance: mild distress, other (lays in bed, does not speak) - EYES Eyes: PERRL/EOMI, pink conjunctivae - HEAD, EARS, NOSE, MOUTH & THROAT HENMT: normocephalic/atraumatic, normal ENT inspection, pharynx normal, other (m ucus mebranes sl dry) - NECK Neck: full range of motion, supple - RESPIRATORY Respiratory: lungs clear, normal breath sounds, no pleuratic chest pain - CARDIOVASCULAR Cardiovascular: regular rate, rhythm, no edema - GASTROINTESTINAL (ABDOMEN) Abdominal Exam: normal bowel sounds, non tender, soft - MUSCULOSKELETAL Extremity: normal range of motion, non-tender - SKIN Integumentary: normal turgor, warm/dry, other (sl pale) - NEUROLOGIC Neurologic: building principal II-XII nml as tested, grossly normal, no motor/sensory deficits - PSYCHIATRIC Psych/Mental Status: other (unable to evaluate) Progress - PLAN OF CARE/RESULTS Progress/Plan/Lab Results: Vital Signs - 8 hr 06/21/18 08:25 Temperature 98.5 F Pulse Rate 107 H Respiratory Rate 19 Blood Pressure 114/68 O2 Sat by Pulse Oximetry 99 Orders Category Date Time Status C DIFF TOXIN [STOOL] Stat Lab 06/21/18 08:51 Uncollected C DIFF TOXIN [STOOL] Stat Lab 06/21/18 08:52 Uncollected CBC WITH DIFF [HEME] Stat Lab 06/21/18 08:51 Uncollected COMPREHENSIVE METABOLIC PANEL [CHEM] Stat Lab 06/21/18 08:51 Uncollected STOOL CULTURE [RM] Stat Lab 06/21/18 08:52 Uncollected URINALYSIS [URINALYSIS] Stat Lab 06/21/18 08:51 Uncollected WBC STOOL [STOOL] Stat Lab 06/21/18 08:52 Uncollected 0.9% Sodium Chloride Inj [Ns] 1,000 ml Med 06/21/18 09:00 Ordered IV 1,000 mls/hr 0.9% Sodium Chloride Inj [Ns] 1,000 ml Med 06/21/18 08:52 Active IV 125 mls/hr Result Diagrams: 06/21/18 08:30 06/21/18 08:30 - EKG 1 Time of EKG reading by physician:: 08:34 EKG Read and Signed by:: Jasiel Olvera EKG Interpretation (*Must complete 3 of following elements*): Abnormal Rate: 105 Rhythm: sinus tach [place]: left QRS: poor R wave progression, other (low voltage) ST Wave: non-specific ST changes - CONSULTS/PCP/HOSPITALIST Notification #1 *Consult/PCP/Hospitalist*: Harry Time Discussed: 13:49 Consult Disposition: Admit Departure - Departure Date of Disposition Decision: 06/21/18 Time of Disposition Decision: 13:49 DIAGNOSIS: Weakness generalized, Hyponatremia Disposition: ADMITTED INPATIENT 09 Certified Medical Emergency: Emergent Condition: Good Referrals and Follow-Ups: Chaitanya Mcdonald MD [Primary Care Provider] - - Critical Care Note This patient required my direct & personal management of CC.: No Attestation - Physician/ ISIS Attestation Patient care was provided by Advanced Practice Provider:: No The physician spent face to face time with patient:: Yes Advanced Practice Provider documentation review:: Supervising physician onsite and consulted in the evaluation and care of this patient. The physician did have a face to face encounter with the patient.
[2018-06-21 09:46] LABS: URINE SOURCE CATH
[2018-06-21 09:52] LABS: BASO# 0.04 X1000 (0.0-0.2); BASO% 0.5 % (0.0-0.8); EOS# 0.12 X1000 (0.0-0.7); EOS% 1.6 % (0.0-10.0); HEMATOCRIT 33.6 % (37.0-47.0); IMM GRAN# 0.43 X1000 (0.0-0.04); IMM GRAN% 5.7 % (0.0-0.5); LYMPH# 1.58 X1000 (1.2-3.4); LYMPH% 20.9 % (20.5-51.1); MCH 28.4 PG (27-31); MCHC 32.7 g/dL (33-37); MCV 86.6 FL (81-99); MONO# 0.88 X1000 (0.11-0.59); MONO% 11.6 % (1.7-9.3); MPV 9.2 FL (7.4-10.4); NEUT# 4.52 X1000 (1.4-6.5); NEUT% 59.7 % (42.2-75.2); PLT 437 X1000 (130-400); RBC 3.88 XMIL (4.2-5.4); RDW 16.2 % (11.5-14.5); WBC 7.57 X1000 (4.8-10.8)
[2018-06-21 09:57] LABS: BILIRUBIN URINE NEGATIVE (NEGATIVE); BLOOD URINE NEGATIVE (NEGATIVE); COLOR YELLOW; GLUCOSE URINE NEGATIVE (NEGATIVE); KETONE URINE NEGATIVE (NEGATIVE); LEUKOCYTES URINE LARGE (NEGATIVE); NITRITE URINE NEGATIVE (NEGATIVE); PH URINE 5.5; PROTEIN URINE NEGATIVE (NEGATIVE); TURBIDITY URINE CLEAR (CLEAR); UR EPITHELIAL CELLS <10 /HPF (<10); URINE BACTERIA NEGATIVE /HPF; URINE RBC <10 /HPF (<10); URINE WBC TNTC /HPF (<10); UROBILINOGEN URINE NORMAL (NORMAL)
[2018-06-21 10:05] LABS: AGAP 8; ALBUMIN 2.3 g/dL (3.5-5.0); ALKALINE PHOSPHATASE 96 U/L (32-104); BUN 5 mg/dL (8-22); CALCIUM 8.1 mg/dL (8.8-10.2); CHLORIDE 94 mmol/L (98-107); COSMO 257; CREATININE 0.5 mg/dL (0.5-0.9); ESTIMATED GFR > 60; GLUCOSE 105 mg/dL (70-104); GOT 25 U/L (10-30); GPT 6 U/L (10-36); POTASSIUM 4.4 mmol/L (3.5-5.1); SODIUM 129 mmol/L (136-145); TCO2 27 mmol/L (25-35); TOTAL BILIRUBIN 0.24 mg/dL (0.20-1.00); TOTAL PROTEIN 4.7 g/dL (6.3-8.3)
[2018-06-21] MEDS ORDERED: ROCEPHIN 1 GM in NS 50 ML IV ONE (10:38)
--- NOTE | 2018-06-21 10:51 | EKG Report ---
Test Performed on : 06/21/2018 08:30:12 AM Test Reason : ED. No order in [place] Blood Pressure : / mmHG Vent. Rate : 105 BPM Atrial Rate : 105 BPM P-R Int : 140 ms QRS Dur : 102 ms QT Int : 384 ms P-R-T Axes : 016 -42 165 degrees QTc Int : 507 ms Sinus tachycardia. Left axis deviation Low voltage QRS Cannot rule out Anterior infarct , age undetermined ST & T wave abnormality, consider inferolateral ischemia Abnormal ECG When compared with ECG of 27-MAY-2018 09:46, (Unconfirmed) Minimal criteria for Anterior infarct are now present T wave inversion now evident in Anterior leads QT has lengthened Unconfirmed Result
[2018-06-21 10:54] LABS: BANDS 9 % (0-1); EOS 3 % (1-10); LYMPHS 23 % (21-51); MONO 12 % (1-9); POLYCHROM 1+; SEGS 51 % (42-75)
--- NOTE | 2018-06-21 22:05 | HISTORY AND PHYSICAL ---
CHIEF COMPLAINT: Complains of weakness, not eating well. Stools are getting dark, and Murphy was placed. HISTORY OF PRESENT ILLNESS: She is a 77-year-old white female sent from home health, recently discharged, came to the ER with above symptoms. The patient was dehydrated. I tried to send the patient as an outpatient. She had an appointment to see me in my office. Nevertheless, she is extremely weak and at the request of the family, has been admitted to the hospital for dehydration, diarrhea. Patient is still in the waiting room until 9:30 p.m. since morning. I did see the patient in the emergency room. PAST MEDICAL HISTORY: 1. Type 2 diabetes diet controlled. 2. Hyperlipidemia. 3. Hypertension. 4. History of osteomyelitis of right 2nd toe. 5. 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 6. Ischemic colitis. 7. Neurogenic bladder with retention. PAST SURGICAL HISTORY: Right hip fracture, right 2nd toe amputation. ALLERGIES: Reported to [facility]. MEDICATIONS: Horizant 600 mg daily, Robaxin 750 p.o. t.i.d., meclizine 12.5 as needed, Tramadol 300 mg daily, Icar C Plus p.o. b.i.d., Levaquin 500 daily, Diflucan 100 daily, Protonix 40 daily. 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 No smoking. No alcohol. Lives in [place]. FAMILY HISTORY: Father from complications of dementia. Mom of lung cancer at 81. Has maintenance flu vaccine 2018, pneumococcal vaccine 2011. REVIEW OF SYSTEMS: Constitutional: Patient is confused. HEENT: No headache. No vision problem. Neck: No neck pain. Cardiopulmonary: No chest pain, shortness of breath, PND, orthopnea. Gastrointestinal: Abdominal pain, diarrhea, not eating well. Genitourinary: A Murphy was placed. No swelling of legs. No joint pain. Neurologic: No focal symptoms or weakness. PHYSICAL EXAMINATION: VITAL SIGNS: Temperature is 98 degrees, tachycardic. Vitals are stable. HEENT EXAM: Dry mucous membranes. NECK: Supple. No lymphadenopathy. CHEST: Clear. HEART: Sounds are regular. ABDOMEN: Belly is soft, nontender. Patient is in diapers with a Murphy. No signs of peritonitis. NEUROLOGICAL: No neurological deficits. INVESTIGATIONS: CBC: White cell count 7.5, hematocrit 33, platelets 437,000. SMA 7: Sodium 139, potassium 4.4, BUN 5, creatinine 0.5, glucose 105. LFTs were normal. Urinalysis: Large leukocytes. ASSESSMENT AND PLAN: A 77-year-old white female admitted to the hospital basically for diarrhea, not eating well, dehydration. Plan is IV fluids. Continue home medicines, DVT, GI prophylaxis respectively. Repeat the labs in the morning. Follow up on stool cultures and Clostridium difficile and neurogenic bladder on Murphy catheter. We will attempt to discontinue Murphy with voiding trials and waiting to be admitted on the floor. cc: Bradley Mcdonald MD
[2018-06-21] MEDS ORDERED: ANTIVERT PO PRN (22:19)
[2018-06-22] MEDS: ROBAXIN PO SCH ×4 (00:41→22:50)
[2018-06-22] MEDS: PROTONIX PO SCH ×3 (00:41→22:50)
[2018-06-22 07:46] LABS: BASO# 0.06 X1000 (0.0-0.2); BASO% 0.8 % (0.0-0.8); EOS# 0.15 X1000 (0.0-0.7); EOS% 1.9 % (0.0-10.0); HEMATOCRIT 34.2 % (37.0-47.0); HEMOGLOBIN 11.2 g/dL (12.0-16.0); IMM GRAN# 0.47 X1000 (0.0-0.04); LYMPH# 1.89 X1000 (1.2-3.4); LYMPH% 24.2 % (20.5-51.1); MCH 28.7 PG (27-31); MCHC 32.7 g/dL (33-37); MCV 87.7 FL (81-99); MONO% 10.2 % (1.7-9.3); MPV 8.9 FL (7.4-10.4); NEUT# 4.45 X1000 (1.4-6.5); NEUT% 56.9 % (42.2-75.2); PLT 414 X1000 (130-400); RDW 16.5 % (11.5-14.5); WBC 7.82 X1000 (4.8-10.8)
[2018-06-22 08:08] LABS: AGAP 9; BUN 4 mg/dL (8-22); CALCIUM 7.5 mg/dL (8.8-10.2); CHLORIDE 99 mmol/L (98-107); COSMO 264; CREATININE 0.4 mg/dL (0.5-0.9); ESTIMATED GFR > 60; GLUCOSE 82 mg/dL (70-104); POTASSIUM 4.3 mmol/L (3.5-5.1); SODIUM 134 mmol/L (136-145); TCO2 26 mmol/L (25-35)
[2018-06-22 08:13] LABS: BANDS 20 % (0-1); EOS 2 % (1-10); HYPOCHROM 1+; LYMPHS 14 % (21-51); MONO 6 % (1-9); SEGS 48 % (42-75)
[2018-06-22] MEDS: DIFLUCAN PO SCH (09:19)
[2018-06-22] MEDS: LEVAQUIN PO SCH (09:19)
[2018-06-22] MEDS ORDERED: CALMOSEPTINE OINTMENT TOP PRN (13:43)
[2018-06-22] MEDS ORDERED: ULTRAM ER PO SCH (19:00)
[2018-06-22] MEDS ORDERED: ULTRAM ER PO ONE (19:06)
[2018-06-22] MEDS: GABAPENTIN ENACARBIL PO SCH (19:34)
--- NOTE | 2018-06-22 19:56 | PROGRESS NOTE ---
DATE: 06/22/2018 SUBJECTIVE: The patient is a little better. Still weak and not able to walk as per the family. Continues to have diarrhea. No loose bowel movements as of here. PHYSICAL EXAMINATION: Vital Signs: Temp is 98.8, pulse 115, blood pressure 93/48. HEENT: Within normal limits. Neck: Supple. Chest: Clear. Heart: Heart sounds are regular. Abdomen: Belly is soft, nontender. Good bowel sounds. Neurologic: No neurological deficits. INVESTIGATIONS: CBC: White cell count 7.8, hematocrit 34, platelets 414,000. SMA-7 is normal. Prealbumin 7.8. ASSESSMENT AND PLAN: 1. Dehydration, getting better on IV fluids. 2. Hyponatremia improving. 3. Bladder retention, on Murphy catheter. 4. Yeast infection, on Diflucan. 5. Next ischemic colitis, stable. 6. Diarrhea. Follow up on stool culture. 7. Plan is check the orthostatic blood pressure, reconcile home medications. Discussed the plan of care with the family. LEVEL OF DOCUMENTATION: 25 minutes. cc: Bradley Mcdonald MD
[2018-06-23] MEDS: ULTRAM PO SCH ×2 (03:24→09:58)
[2018-06-23] MEDS: PROTONIX PO SCH ×2 (06:12→21:47)
[2018-06-23 07:59] LABS: AGAP 6; BUN 5 mg/dL (8-22); CALCIUM 7.5 mg/dL (8.8-10.2); CHLORIDE 96 mmol/L (98-107); COSMO 255; CREATININE 0.4 mg/dL (0.5-0.9); ESTIMATED GFR > 60; GLUCOSE 108 mg/dL (70-104); POTASSIUM 4.5 mmol/L (3.5-5.1); SODIUM 128 mmol/L (136-145); TCO2 26 mmol/L (25-35)
[2018-06-23] MEDS ORDERED: IMODIUM PO PRN (08:24)
[2018-06-23] MEDS: DIFLUCAN PO SCH (09:57)
[2018-06-23] MEDS: ROBAXIN PO SCH ×3 (09:57→21:47)
[2018-06-23] MEDS: LEVAQUIN PO SCH (09:58)
[2018-06-23] MEDS: CLINIMIX E 4.25%-5% SOLUTION 1,000 ML IV SCH ×2 (10:52→21:46)
[2018-06-23] MEDS: ZOFRAN IV PRN (13:19)
[2018-06-23] MEDS: GABAPENTIN ENACARBIL PO SCH (18:59)
[2018-06-23] MEDS: ULTRAM ER PO SCH (19:02)
--- NOTE | 2018-06-23 19:56 | PROGRESS NOTE ---
DATE: 06/23/2018 SUBJECTIVE: The patient is still weak. Family is at bedside. OBJECTIVE: Vital Signs: Temperature is 98 degrees, tachycardic; vitals are stable. Chest: Clear. Heart: Sounds are regular. Abdomen: Belly is soft, nontender. : Murphy was placed. LABS: Stool: White cells negative, C difficile negative. Labs: Sodium 128, potassium 4.5, BUN 5, creatinine 0.4, prealbumin 7.8. ASSESSMENT AND PLAN: 1. Dehydration, getting better. 2. Protein-calorie malnutrition, moderate: Intravenous Clinimix. 3. Bladder voiding trials and remove the Murphy. 4. Ischemic colitis, on Levaquin. 5. Yeast infection in the urine, on Diflucan. 6. No significant diarrhea noted. 7. Deconditioning. Out of the bed with physical therapy, orthostatic blood pressure, and will follow up. LEVEL OF DOCUMENTATION: 25 minutes. cc: Bradley Mcdonald MD
[2018-06-24] MEDS: CLINIMIX E 4.25%-5% SOLUTION 1,000 ML IV SCH ×2 (02:10→14:49)
[2018-06-24] MEDS: PROTONIX PO SCH ×2 (06:16→21:19)
[2018-06-24 08:12] LABS: BASO# 0.07 X1000 (0.0-0.2); BASO% 0.7 % (0.0-0.8); EOS# 0.12 X1000 (0.0-0.7); EOS% 1.2 % (0.0-10.0); HEMATOCRIT 33.6 % (37.0-47.0); HEMOGLOBIN 11.1 g/dL (12.0-16.0); IMM GRAN# 0.59 X1000 (0.0-0.04); LYMPH# 1.96 X1000 (1.2-3.4); MCH 28.8 PG (27-31); MONO# 1.17 X1000 (0.11-0.59); MONO% 11.9 % (1.7-9.3); MPV 9.3 FL (7.4-10.4); NEUT# 5.91 X1000 (1.4-6.5); NEUT% 60.2 % (42.2-75.2); PLT 307 X1000 (130-400); RBC 3.86 XMIL (4.2-5.4); RDW 16.3 % (11.5-14.5); WBC 9.82 X1000 (4.8-10.8)
[2018-06-24 09:02] LABS: AGAP 8; BUN 8 mg/dL (8-22); CALCIUM 8.2 mg/dL (8.8-10.2); CHLORIDE 94 mmol/L (98-107); COSMO 259; CREATININE 0.4 mg/dL (0.5-0.9); ESTIMATED GFR > 60; GLUCOSE 172 mg/dL (70-104); POTASSIUM 4.3 mmol/L (3.5-5.1); SODIUM 128 mmol/L (136-145); TCO2 26 mmol/L (25-35)
[2018-06-24 09:43] LABS: BANDS 6 % (0-1); EOS 2 % (1-10); LYMPHS 28 % (21-51); MONO 4 % (1-9); SEGS 56 % (42-75)
[2018-06-24] MEDS: LEVAQUIN PO SCH (10:53)
[2018-06-24] MEDS: ROBAXIN PO SCH ×3 (10:53→21:19)
[2018-06-24] MEDS: DIFLUCAN PO SCH (10:53)
--- NOTE | 2018-06-24 17:17 | PROGRESS NOTE ---
DATE: 06/24/2018 SUBJECTIVE: The patient still weak. Murphy was out. Monitoring the bladder scan about bladder retention. REVIEW OF SYSTEMS: None reported. EXAM: Afebrile, slightly tachycardic. Hemodynamics are stable.HEENT: Within normal limits. Chest: Clear. Heart: Sounds are regular. Belly: Is soft, obese, nontender. No obvious deficits. INVESTIGATIONS: C difficile is negative. ASSESSMENT AND PLAN: 1. Hyponatremia is better, stable. Continue discontinue IV fluids. 2. Nutrition. IV Clinimix. 3. Urinary yeast infection on Diflucan. 4. Ischemic colitis on Levaquin. No signs of infection noted and diarrhea, stable. Continue on Flagyl and history of ischemic colitis stable. Continue to monitor bladder scan, hemodynamics with orthostatic and will transfer to the single room. 5. Chronic pain. Discontinue Levaquin, change to the Flagyl and will follow over the weekend. Family agreeable to stay over the weekend. LEVEL OF DOCUMENTATION: 25 minutes. cc: Bradley Mcdonald MD
[2018-06-24] MEDS: ULTRAM ER PO SCH (18:49)
[2018-06-24] MEDS: GABAPENTIN ENACARBIL PO SCH (18:49)
[2018-06-24] MEDS: FLAGYL PO SCH (18:50)
[2018-06-25] MEDS: CLINIMIX E 4.25%-5% SOLUTION 1,000 ML IV SCH ×2 (04:30→17:17)
[2018-06-25] MEDS: FLAGYL PO SCH ×3 (06:37→21:23)
[2018-06-25] MEDS: PROTONIX PO SCH ×2 (06:37→21:23)
[2018-06-25] MEDS: ROBAXIN PO SCH ×3 (08:38→21:23)
[2018-06-25] MEDS: DIFLUCAN PO SCH (08:45)
--- NOTE | 2018-06-25 10:30 | PROGRESS NOTE ---
DATE: 06/25/2018 SUBJECTIVE: The patient says she is feeling better, but still having diarrhea and some abdominal discomfort. OBJECTIVE: Vital Signs: Blood pressure 115/63, respirations 16, pulse 103, temperature 98.8 degrees Fahrenheit. HEENT: She is normocephalic. EOMS intact. PERRLA. Throat clear. Lungs: Clear to auscultation and percussion without rhonchi, rales, or wheezes. Heart: Regular rate and rhythm without murmurs, gallops, friction rubs. Abdomen: Slightly distended and slightly tender generally. Presumed ischemic colitis. Stool cultures came back negative, except for MRSA, which is presumed contaminant. Neurological: Exam intact grossly. ASSESSMENT: Ischemic colitis with diarrhea. PLAN: We will consult Gastroenterology. As they are aware of her already and have seen her before, since she has not completely gotten over this and still having diarrhea, she does need a colonoscopy somewhere along the way. We will let them make the decision whether it is done here in the hospital or as an outpatient. I have talked with Dr. Tirado about this already. cc: MD Bradley Garrido Jr, MD
--- NOTE | 2018-06-25 13:15 | GASTROENTEROLOGY CONSULTATION ---
DATE: 06/25/2018 REASON FOR CONSULTATION: Generalized weakness, poor appetite, diarrhea HPI: Ms. Mendoza is a 77 year old woman with PMH of HTN, HLD, NIDDM2, OA, GERD, peripheral neuropathy, vertigo and recent hospitalization for ischemic colitis who represented several days ago with generalized weakness, poor appetite, and persistent diarrhea. The patient is a poor historian. However, since admission, she has been on levaquin and now on fagyl. She has had 1-2 documented nonbloody bowel movements daily. No N/V/F, CP, SOB, melena, or rectal bleeding. Of note, welch was placed for urinary retention and she has been on diflucan for UTI with yeast that was seen on UCx in 06/10. 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 PSH: Right hip replacement FH: No FHx of GI malignancies SH: No T/E/D MEDS: Reviewed in chart ALL: morphine, bactrim PHYSICAL EXAMINATION: VS: T98.2 HR120 RR 18 BP 123/64 97%RA GEN: awake, alert, NAD, poor historian HEENT: AT/NC, anicteric, MMM NECK: supple, no JVD CV: RRR, no murmurs PULM: CTAB no wheezing ABD: soft, NT/ND, NABS, no rebound or guarding EXT: no cce NEURO: nonfocal LABS: Na 128 K 4.3 Cl 94 CO2 23 BUN 8 Cr 0.4 glu 172 Hbg 9.82 hgb 11.1 plts 307 Alb 2.3 pro 4.7 Tbili 0.24 AST 25 ALT 6 ALP 96 bands 6 prealbumin 7.8 UA with large leukocytes Stool MRSA Cdiff toxin A/B neg recent cdiff 05/29 negative CTAP 06/07 IMPRESSION: 1. Colitis of the splenic flexure and descending colon. There is severe vascular disease. Given the location and nature of the colitis, ischemic colitis should BE considered. 2. Numerous small gallstones in the gallbladder but no definite gallbladder inflammation. 3. Advanced vascular disease. CTA abdomen 06/08 IMPRESSION: Atherosclerotic changes as described. The possibility of significant stenosis of the ostium of the superior mesenteric artery cannot be excluded. 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 Left-sided colitis. A/P: Ms. Mendoza is a 77 year old woman with PMH of HTN, HLD, NIDDM2, OA, GERD, peripheral neuropathy, vertigo and recent hospitalization for ischemic colitis who represented several days ago with generalized weakness, poor appetite, and persistent diarrhea. Labs notable for hyponatremia, bandemia, mild anemia, and pyuria. Fecal WBC rare. MRSA is stool is likely contaminant. CTAP from prior admission showed left sided colitis and severe vascular disease and gallstones. 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 Will follow with you. cc: Bradley Mcdonald MD [facility]
[2018-06-25] MEDS ORDERED: GABAPENTIN ENACARBIL 600 MG PO ONE (14:25)
[2018-06-25] MEDS: ZOFRAN IV PRN (15:59)
[2018-06-25] MEDS: ULTRAM ER PO SCH (18:56)
[2018-06-25] MEDS: GABAPENTIN ENACARBIL PO SCH (21:22)
[2018-06-26] MEDS: CLINIMIX E 4.25%-5% SOLUTION 1,000 ML IV SCH ×2 (05:15→18:41)
[2018-06-26] MEDS: FLAGYL PO SCH ×3 (06:33→22:08)
[2018-06-26] MEDS: PROTONIX PO SCH ×2 (06:33→22:08)
--- NOTE | 2018-06-26 10:02 | PROGRESS NOTE ---
DATE: 06/26/2018 SUBJECTIVE: The patient says she is actually feeling better. She has not had any diarrhea over the night. She has been seen by Dr. Tirado for gastroenterology who plans to do colonoscopy tomorrow. OBJECTIVE: Vitals: Blood pressure is 89/53, pulse 105, temperature 97.8 degrees Fahrenheit, respirations 16. Oxygen saturation on room air is 98%. HEENT: She is normocephalic. EOMS intact. PERRLA. Throat clear. Lungs: Clear to auscultation and percussion without rhonchi, rales, or wheezes. Heart: Regular rate and rhythm without murmurs, gallops, friction rubs. Abdomen: Soft. Active bowel sounds. No organomegaly or tenderness at this point. LABORATORY: Shows white count 9820, hemoglobin 11.1, sodium was 128, potassium 4.3, chloride 94. The rest of electrolytes essentially stable. She does have a little bit of low calcium and low albumin. The patient did have pyuria on 06/21. Urine culture done 06/25 is pending. ASSESSMENT: 1. Colitis, probably ischemic. 2. Questionable urinary tract infection. PLAN: Continue support. Gastroenterology is involved now. We will do colonoscopy tomorrow. cc: MD Bradley Garrido Jr, MD
--- NOTE | 2018-06-26 10:15 | PROVIDER PROGRESS NOTE ---
Progress Note SUBJECTIVE: No acute overnight events. No N/V/F, CP, SOB, abdominal pain, or diarrhea. Patient reports improvement in symptoms. OBJECTIVE: Last Vital Signs Temp 97.8 F 06/26/18 07:56 Pulse 122 H 06/26/18 08:00 Resp 16 06/26/18 07:56 BP 89/53 06/26/18 08:00 Pulse Ox 98 06/26/18 07:56 Height 5 ft 7 in Weight 140 lb 12.8 oz GEN: awake, alert, NAD HEENT: anicteric, MMM, EOMI NECK: supple, no jvd CV: RRR, no murmurs PULM: CTAB, no wheezing ABD: soft, NT/ND, NABS EXT: no cce NEURO: nonfocal LABS: none A/P: Ms. Mendoza is a 77 year old woman with PMH of HTN, HLD, NIDDM2, OA, GERD, peripheral neuropathy, vertigo and recent hospitalization for ischemic colitis who represented several days ago with generalized weakness, poor appetite, and persistent diarrhea. Labs notable for hyponatremia, bandemia, mild anemia, and pyuria. Fecal WBC rare. MRSA is stool is likely contaminant. CTAP from prior admission showed left sided colitis and severe vascular disease and gallstones. She appears to be improving clinically. She is on clear liquids for planned colonoscopy given readmission for diarrhea. 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
[2018-06-26] MEDS: ROBAXIN PO SCH ×3 (10:41→22:08)
[2018-06-26] MEDS: DIFLUCAN PO SCH (10:41)
[2018-06-26] MEDS ORDERED: GOLYTELY PO ONE (18:00)
[2018-06-26] MEDS: ULTRAM ER PO SCH (18:41)
[2018-06-26] MEDS: GABAPENTIN ENACARBIL PO SCH (18:48)
[2018-06-27] MEDS: CLINIMIX E 4.25%-5% SOLUTION 1,000 ML IV SCH ×2 (05:45→20:15)
[2018-06-27] MEDS: FLAGYL PO SCH ×2 (06:45→13:28)
[2018-06-27] MEDS: PROTONIX PO SCH ×2 (06:46→20:08)
[2018-06-27] MEDS: DIFLUCAN PO SCH (08:55)
[2018-06-27] MEDS: ROBAXIN PO SCH ×3 (08:56→20:08)
[2018-06-27 11:32] LABS: URINE SOURCE CATH
[2018-06-27 11:52] LABS: BILIRUBIN URINE NEGATIVE (NEGATIVE); BLOOD URINE NEGATIVE (NEGATIVE); COLOR YELLOW; GLUCOSE URINE NEGATIVE (NEGATIVE); KETONE URINE NEGATIVE (NEGATIVE); LEUKOCYTES URINE NEGATIVE (NEGATIVE); NITRITE URINE NEGATIVE (NEGATIVE); PROTEIN URINE NEGATIVE (NEGATIVE); TURBIDITY URINE CLEAR (CLEAR); UROBILINOGEN URINE NORMAL (NORMAL)
[2018-06-27 11:53] LABS: UR EPITHELIAL CELLS <10 /HPF (<10); URINE BACTERIA NEGATIVE /HPF; URINE RBC <10 /HPF (<10); URINE WBC <10 /HPF (<10)
[2018-06-27] MEDS ORDERED: DIPRIVAN 1% ONE (12:02)
[2018-06-27] MEDS ORDERED: XYLOCAINE-MPF 2% ONE (12:03)
--- NOTE | 2018-06-27 13:17 | OPERATIVE NOTE ---
PROCEDURE DATE: 06/27/2018 PRIMARY CARE DOCTOR: Dr. Mcdonald. TITLE OF SURGERY: Colonoscopy with descending colon biopsy. PRIMARY DIAGNOSES: 1. Colitis. 2. Diarrhea. 3. Dehydration. 4. History of mesenteric vascular disease based on imaging and CTA. POSTOPERATIVE DIAGNOSIS: 1. Severe colitis in the descending colon starting at 30 cm up to 50 cm from the anal verge. This was biopsied to evaluate ischemic colitis. There was evidence of stool in the right colon. The bowel prep was fair. 2. Internal hemorrhoids grade 1. Retroflexion of the anus. ESTIMATED BLOOD LOSS: Minimal. COMPLICATIONS: None. ANESTHESIA: Monitored anesthesia care by the anesthesiologist. SPECIMEN: Descending colitis biopsy. PROCEDURE: After informed consent, the patient and family explained the risks, benefits, indications, alternatives of the patient for colonoscopy. The risks of the procedure, including infection, bleeding, pain, trauma to the surrounding structures, perforation, , were explained the patient and family among others and they acknowledged and agreed to proceed with the above. The patient was brought to the OR. She was turned left lateral position. Rectal exam was found to be normal. No masses felt. No blood on the finger. The colonoscope introduced to the anal verge was all the way to the cecum. Cecum was identified by landmarks, IC valve and appendiceal orifice. There was stool in the colon which was lavaged. There was evidence of severe colitis in the form of erythema, friability, erosions, mucosal edema and diffuse ulceration in the descending colon starting at 30 cms to to 50 cms from the anal verge. This appeared to be severe colitis. This was biopsied randomly to evaluate for ischemic colitis. There was evidence of diverticulosis in the sigmoid colon. There was evidence of internal hemorrhoids grade 1 on retroflexion of anus. Colonoscope was withdrawn. The patient tolerated this well currently monitored in the OR in stable condition. RECOMMENDATIONS: 1. The patient will be on full liquid diet. 2. We will start patient on Levaquin IV 500 mg once daily. 3. Continue Flagyl for now. 4. The patient on Culturelle 1 capsule p.o. b.i.d. 5. Will consult General surgery for persistent colitis likely secondary to mesenteric vascular disease. 6. We will follow along. The above plans were discussed with the patient's family and all questions answered. Please call us with any further questions. cc: MD Bradley Walden MD MTDD
[2018-06-27] MEDS: LEVAQUIN 500 MG/D5W 500 MG/100 ML IVPB IV SCH (13:29)
[2018-06-27] MEDS: ULTRAM ER PO SCH (18:12)
--- NOTE | 2018-06-27 18:28 | GENERAL SURGERY PROGRESS NOTE ---
DATE: 06/27/2018 HISTORY OF PRESENT ILLNESS: A 77-year-old female who has multiple medical issues. She has had recent bout of ischemic colitis, left colon, and presents now with poor appetite, diarrhea, weakness. She denies any bleeding. She is somewhat of a poor historian. Says she feels pretty well. She is eating some full liquids currently and denies any abdominal pain. She had a colonoscopy earlier today by Dr. Matson that showed descending colitis, severe. Biopsies were taken. She had normal white count. No fevers apparent. Some history of mesenteric vascular disease with a CT angiogram as recent as 06/08/2018. REVIEW OF SYSTEMS: A 10-point negative except what is mentioned in HPI. FAMILY HISTORY: Reviewed and noncontributory. SOCIAL HISTORY: She lives with her family here in town at home. She seems to indicate that she is pretty active with her day-to-day. She never was a smoker. Never was a drinker. PAST MEDICAL HISTORY: 1. Osteoarthritis. 2. Hypertension. 3. Zaa-ciqtxdr-lgnmrsulw diabetes. 4. Peripheral neuropathy. 5. Osteomyelitis of the 2nd toe. PAST SURGICAL HISTORY: She had a right hip arthroplasty. PHYSICAL EXAMINATION: Vital Signs: Temperature 97.8 degrees, pulse 100, blood pressure 127/52, oxygen saturation is 96%. General: She is alert, elderly appearing, somewhat frail. Cardiovascular: She has had tachycardia while she is here. Pulmonary: No increased work of breathing. Abdomen: Soft, nontender, nondistended. Integument: Warm and dry without jaundice. Psychiatric: Appropriate affect. Lymphatic: No cervical adenopathy. LABORATORY DATA: White count is 9, hematocrit 33. These labs are from the . She has not had repeat. Creatinine 0.4. Sodium is low at 128. Her carbon dioxide has been 26. Preop BUN was low at 7.8. Bilirubin is normal. AST, ALT, alkaline phosphatase normal. Urinalysis is clear. I have reviewed her CT angiogram from earlier this month. ASSESSMENT AND PLAN: A 77-year-old female with descending colitis, most consistent with ischemic. Her stool studies did show methicillin resistant Staphylococcus aureus but otherwise C diff and other sources have been negative. Recommend bowel rest, intravenous antibiotics, peripheral nutrition as management of her ischemic colitis. I reviewed. She does not have clear stenosis or a story consistent with mesenteric ischemia. We will continue to follow along. Hopefully, she will resolve this, but given her frail malnourished state, at worst she did deteriorate and will require descending colectomy with end colostomy. She is apprehensive to undergo surgery. We will continue to follow along. cc: MD Bradley Doll MD
[2018-06-27] MEDS: CULTURELLE PO SCH (20:08)
[2018-06-27] MEDS: GABAPENTIN ENACARBIL PO SCH ×2 (20:09→20:20)
--- NOTE | 2018-06-27 20:50 | PROGRESS NOTE ---
DATE: 06/27/2018 SUBJECT: Events noted. Patient has intermittent pain and diarrhea. Schedule for colonoscopy by Dr. Tirado. EXAMINATION: Temperature is 97 degrees, vitals are stable.HEENT: Within normal limits. Neck: Supple. Chest: Clear. Heart: Sounds are regular. Belly: Is soft, nontender. Murphy was discontinued. ASSESSMENT AND PLAN: 1. Ischemic colitis not getting better on Flagyl. 2. Hyponatremia stable. 3. Continue on IV PPN. 4. Neurogenic bladder retention, Murphy was discontinued. Postvoid residual urine still high and straight catheterization as needed. UA and C and S. I discussed with Dr. Aguilar Sandoval and follow up on colonoscopy findings and continue out of the bed with physical therapy. LEVEL OF DOCUMENTATION: 25 minutes. cc: Bradley Mcdonald MD
[2018-06-28] MEDS: FLAGYL PO SCH ×4 (01:32→21:44)
[2018-06-28] MEDS: CLINIMIX E 4.25%-5% SOLUTION 1,000 ML IV SCH ×2 (05:09→18:04)
[2018-06-28] MEDS: PROTONIX PO SCH ×2 (06:24→20:26)
[2018-06-28] MEDS: ROBAXIN PO SCH ×2 (08:57→20:20)
[2018-06-28] MEDS: CULTURELLE PO SCH ×2 (08:58→20:19)
[2018-06-28 09:06] LABS: URINE SOURCE CATH
[2018-06-28 09:13] LABS: BILIRUBIN URINE NEGATIVE (NEGATIVE); BLOOD URINE NEGATIVE (NEGATIVE); COLOR YELLOW; GLUCOSE URINE NEGATIVE (NEGATIVE); KETONE URINE NEGATIVE (NEGATIVE); LEUKOCYTES URINE TRACE (NEGATIVE); NITRITE URINE NEGATIVE (NEGATIVE); PH URINE 7.5; PROTEIN URINE NEGATIVE (NEGATIVE); TURBIDITY URINE CLEAR (CLEAR); UROBILINOGEN URINE NORMAL (NORMAL)
[2018-06-28 09:14] LABS: UR EPITHELIAL CELLS <10 /HPF (<10); URINE BACTERIA NEGATIVE /HPF; URINE RBC <10 /HPF (<10); URINE WBC <10 /HPF (<10)
--- NOTE | 2018-06-28 09:19 | GENERAL SURGERY PROGRESS NOTE ---
DATE: 06/27/2018 SUBJECTIVE: No pain. No vomiting. She is tolerating some p.o. No fevers. Heart rate was in the 80s overnight, 105, this morning blood pressure 109/64. OBJECTIVE: General: She is alert, abdomen is soft, nontender. There is no peritonitis. Integument: Is warm dry. She does not have any new labs this morning. ASSESSMENT AND PLAN: A 77-year-old female with colitis in descending colon, malnutrition. I would recommend repeating labs today to ensure she does not have leukocytosis or metabolic acidosis, correct electrolytes as appropriate. She is on peripheral nutrition. We will continue to follow her along. cc: MD Bradley Doll MD
--- NOTE | 2018-06-28 10:47 | PROVIDER PROGRESS NOTE ---
Progress Note SUBJECTIVE: No acute overnight events. No N/V/F, CP, SOB, abdominal pain, rectal bleeding, or diarrhea. OBJECTIVE: Last Vital Signs Temp 99.1 F 06/28/18 08:00 Pulse 105 H 06/28/18 08:00 Resp 21 06/28/18 08:00 BP 109/64 06/28/18 08:00 Pulse Ox 95 06/28/18 08:00 Height 5 ft 7 in Weight 140 lb 12.8 oz GEN: awake, alert, NAD HEENT: anicteric, MMM, EOMI NECK: supple, no jvd CV: RRR, no murmurs PULM: CTAB, no wheezing ABD: soft, NT/ND, NABS EXT: no cce NEURO: nonfocal LABS: none Colonoscopy 06/27 POSTOPERATIVE DIAGNOSIS: 1. Severe colitis in the descending colon starting at 30 cm up to 50 cm from the anal verge. This was biopsied to evaluate ischemic colitis. There was evidence of stool in the right colon. The bowel prep was fair. 2. Internal hemorrhoids grade 1. Retroflexion of the anus. A/P: Ms. Mendoza is a 77 year old woman with PMH of HTN, HLD, NIDDM2, OA, GERD, peripheral neuropathy, vertigo and recent hospitalization for ischemic colitis who represented several days ago with generalized weakness, poor appetite, and persistent diarrhea. Labs notable for hyponatremia, bandemia, mild anemia, and pyuria. Fecal WBC rare. MRSA is stool is likely contaminant. CTAP from prior admission showed left sided colitis and severe vascular disease and gallstones. Her symptoms have improved significantly. Colonoscopy yesterday revealed left- sided colitis consistent with ischemia. Biopsies obtained to rule out IBD and infectious etiology. #Ischemic colitis - on levaquin and flagyl, continue to complete 10-14 day course - advance to GI soft diet - await pathology results - avoid hypotension, constipation - surgery consulted; non-surgical mgmt recommended for now #Diarrhea: resolved: will check BMP and CBC #PAD: noted #Hyponatremia: will check BMP today #GERD: on PPI #Malnutrition: on climinix; encourage PO intake, supplement nutrition PO If BMP and CBC are stable, then patient can be discharged from GI standpoint. Please call with questions.
[2018-06-28 11:56] LABS: BASO# 0.06 X1000 (0.0-0.2); BASO% 0.5 % (0.0-0.8); EOS# 0.07 X1000 (0.0-0.7); EOS% 0.6 % (0.0-10.0); HEMOGLOBIN 11.5 g/dL (12.0-16.0); IMM GRAN# 0.46 X1000 (0.0-0.04); LYMPH# 2.49 X1000 (1.2-3.4); LYMPH% 21.8 % (20.5-51.1); MCH 28.3 PG (27-31); MCHC 31.9 g/dL (33-37); MCV 88.5 FL (81-99); MONO# 1.08 X1000 (0.11-0.59); MONO% 9.5 % (1.7-9.3); MPV 9.1 FL (7.4-10.4); NEUT# 7.25 X1000 (1.4-6.5); NEUT% 63.6 % (42.2-75.2); PLT 396 X1000 (130-400); RBC 4.07 XMIL (4.2-5.4); RDW 16.5 % (11.5-14.5); WBC 11.41 X1000 (4.8-10.8)
[2018-06-28 12:09] LABS: AGAP 3; BUN 13 mg/dL (8-22); CALCIUM 8.8 mg/dL (8.8-10.2); CHLORIDE 95 mmol/L (98-107); COSMO 266; CREATININE 0.5 mg/dL (0.5-0.9); ESTIMATED GFR > 60; GLUCOSE 192 mg/dL (70-104); POTASSIUM 4.5 mmol/L (3.5-5.1); SODIUM 130 mmol/L (136-145); TCO2 32 mmol/L (25-35)
[2018-06-28] MEDS: LEVAQUIN 500 MG/D5W 500 MG/100 ML IVPB IV SCH (13:10)
[2018-06-28] MEDS: ULTRAM ER PO SCH (18:04)
[2018-06-28] MEDS: GABAPENTIN ENACARBIL PO SCH (18:05)
--- NOTE | 2018-06-28 21:18 | PROGRESS NOTE ---
DATE: 06/28/2018 SUBJECT: The patient continues to have high postvoid residual urine close to 900 mL. She is not emptying the bladder. The daughter was at bedside. Decreased diarrhea. Colonoscopy findings discussed. Biopsies pending. EXAMINATION: Temperature is 98 degrees. Tachycardic. Vitals are stable.HEENT: Within normal limits. Chest: Clear. Heart: Sounds are regular. Belly: Is soft, nontender. Good bowel sounds. INVESTIGATIONS: CBC. White cell count 11.41, hematocrit 36, platelets 396,000. Sodium 130, potassium 4.5, chloride 95, BUN 13, creatinine 0.5. Urinalysis is clear. ASSESSMENT AND PLAN: 1. Active colitis in the descending colon, not responding with antibiotics. Dr. Matson added on Levaquin and Flagyl. 2. Continue Protonix. 3. Probiotics, loperamide as needed. 4. Neurogenic bladder. Discussed with Dr. Sandoval. Again it may be drug related, decreased Robaxin. Family agree and also Murphy catheter in place. 5. Resolving yeast in the urine. Discontinue Diflucan and continue IV Clinimix, out of the bed with physical therapy. Will follow up on the biopsy report and make some plans and will discuss with Dr. Matson as well as Dr. Lawson. LEVEL OF DOCUMENTATION: 25 minutes. cc: Bradley Mcdonald MD
[2018-06-29] MEDS: CLINIMIX E 4.25%-5% SOLUTION 1,000 ML IV SCH ×2 (06:14→21:13)
[2018-06-29] MEDS: FLAGYL PO SCH ×3 (06:14→21:06)
[2018-06-29] MEDS: PROTONIX PO SCH ×2 (06:14→21:06)
[2018-06-29] MEDS: ROBAXIN PO SCH ×2 (09:20→21:06)
[2018-06-29] MEDS: CULTURELLE PO SCH ×2 (09:20→21:06)
[2018-06-29] MEDS: LEVAQUIN 500 MG/D5W 500 MG/100 ML IVPB IV SCH (15:51)
--- NOTE | 2018-06-29 18:09 | GENERAL SURGERY PROGRESS NOTE ---
DATE: 06/29/2018 SUBJECTIVE: She is tolerating a diet. No abdominal pain. Stools are soft, but not very frequent. No fever. OBJECTIVE: Vital Signs: Pulse in the low 100s. Blood pressure 111/77, oxygen saturation 100%. General: She is alert. Abdomen: Soft. Integument: Warm and dry. LABS: No new labs yet this morning. ASSESSMENT AND PLAN: A 77-year-old female with left-sided colitis, most likely ischemic. Clinically, she is stable with no evidence of peritonitis. We will continue to follow her closely. cc: MD Bradley Doll MD
[2018-06-29] MEDS: ULTRAM ER PO SCH (18:39)
[2018-06-29] MEDS: GABAPENTIN ENACARBIL PO SCH (18:39)
--- NOTE | 2018-06-29 21:58 | PROGRESS NOTE ---
DATE: 06/29/2018 SUBJECTIVE: Biopsy reported active colitis. I appreciate Dr. Lawson's consultation. Want to continue 2 weeks of antibiotics. If no better consider surgical evaluation at this time. They want to continue medical treatment. OBJECTIVE: Vital Signs: Temperature Is 98 degrees, tachycardic. Vitals are stable. Not orthostatic. HEENT: Within normal limits. Neck: Supple. Chest: Clear. Heart: Sounds are regular. Abdomen: Belly is soft, nontender. Neurologic: No neurological deficits. INVESTIGATIONS: None reported. ASSESSMENT AND PLAN: 1. Ischemic colitis. Most likely no need for CT mesenteric angiogram. Outpatient antibiotics Levaquin and Flagyl. 2. Hyponatremia, stable. Continue IV Clinimix and physical therapy. 3. Neurogenic bladder. Decrease the Robaxin and will follow up. Plan is to discuss with the patient's daughter about disposition LEVEL OF DOCUMENTATION: 25 minutes. cc: Bradley Mcdonald MD MTDD
--- NOTE | 2018-06-29 22:25 | PROVIDER PROGRESS NOTE ---
Progress Note SUBJECTIVE: No acute overnight events. Afebrile. No N/V/F, CP, SOB, abdominal pain, diarrhea, or rectal bleeding. Patient is tolerating PO. Her primary complaint is urinary retention. OBJECTIVE: Last Vital Signs Temp 98.3 F 06/29/18 19:23 Pulse 120 H 06/29/18 19:23 Resp 24 06/29/18 19:23 BP 130/86 06/29/18 19:23 Pulse Ox 100 06/29/18 19:23 Height 5 ft 7 in Weight 140 lb 12.8 oz GEN: awake, alert, NAD HEENT: anicteric, MMM, EOMI NECK: supple, no jvd CV: RRR, no murmurs PULM: CTAB, no wheezing ABD: soft, NT/ND, NABS EXT: no cce NEURO: nonfocal LABS: 06/09/18 06/09/18 06/28/18 05:58 05:58 11:40 WBC 11.26 H Hgb 11.6 L Plt Count 506 H Sodium 137 130 L Potassium 3.6 4.5 Chloride 99 95 L Carbon Dioxide 24 L 32 BUN 6 L 13 Creatinine 0.5 0.5 06/28/18 11:40 WBC 11.41 H Hgb 11.5 L Plt Count 396 Sodium Potassium Chloride Carbon Dioxide BUN Creatinine Colonoscopy 06/27 POSTOPERATIVE DIAGNOSIS: 1. Severe colitis in the descending colon starting at 30 cm up to 50 cm from the anal verge. This was biopsied to evaluate ischemic colitis. There was evidence of stool in the right colon. The bowel prep was fair. 2. Internal hemorrhoids grade 1. Retroflexion of the anus. PATH 06/27 Large intestine, descending, biopsy: - Active colitis with edema. A/P: Ms. Mendoza is a 77 year old woman with PMH of HTN, HLD, NIDDM2, OA, GERD, peripheral neuropathy, vertigo who represented with ischemic colitis. Her symptoms are improving. Surgery following who recommends non-surgical mgmt given improvement in symptoms. She also is having urinary retention. #Ischemic colitis - on levaquin and flagyl, continue to complete 10-14 day course - cont GI soft diet - avoid hypotension, constipation - surgery consulted; non-surgical mgmt recommended for now - recommend follow-up colonoscopy in 3-6 months to assess for healing #Diarrhea: resolved #Urinary retention: s/p welch; seen by urology; defer to primary team #PAD: noted #Hyponatremia: Na 130; stable #GERD: on PPI #Malnutrition: on climinix; encourage PO intake, supplement nutrition PO Will follow with you. Please call with questions
[2018-06-30] MEDS: PROTONIX PO SCH ×2 (06:42→22:04)
[2018-06-30] MEDS: FLAGYL PO SCH ×3 (06:42→22:04)
[2018-06-30] MEDS: CULTURELLE PO SCH ×2 (09:37→22:04)
[2018-06-30] MEDS: ROBAXIN PO SCH ×2 (09:37→22:04)
--- NOTE | 2018-06-30 10:07 | GASTROENTEROLOGY PROGRESS NOTE ---
DATE: 06/30/2018 SUBJECTIVE: Resting in bed. Her daughter is at bedside. The patient is feeling better. She denies any fevers, rigors, or chills. She is eating better. Her abdominal pain is improving. She denies any fevers, rigors, chills. OBJECTIVE: Vital Signs: Temperature 98.2, pulse 115, respiratory rate 22, blood pressure of 97/70, saturating 94% on room air. General Appearance: Moderately malnourished. Lying in bed in no acute distress. HEENT: Mild pallor. No icterus. Neck: Supple. Abdomen: Mild discomfort in the left lower quadrant. No rebound. No guarding. Extremities: No cyanosis, clubbing. Neurologic: Alert, awake, oriented. LABORATORY DATA: Hemoglobin and hematocrit 11.5 and 36, white count of 11.41, platelet count of 396,000. Sodium 130, potassium 4.5, chloride 95, bicarb 32, anion gap 3, BUN of 13, creatinine 0.5, glucose of 192, calcium is 8.8. Urinalysis showed trace leukocytes. Stool culture shows Staphylococcus aureus, MRSA. Clostridium difficile toxin was negative. Stool for white cells were rare. Urine culture: No growth. IMPRESSION AND PLAN: 1. Ischemic colitis. She will continue on Levaquin and Flagyl for 10 to 14 days. She will continue on gastrointestinal soft diet. General Surgery is on board. We will recommend followup colonoscopy in 3 to 6 months to assess for healing. 2. Diarrhea, resolved. 3. Peripheral arterial disease, noted. 4. Gastroesophageal reflux disease. She is continued on proton pump inhibitor, and counseled on gastroesophageal reflux life changes. 5. Malnutrition. She is on Clinimix. She is improving her oral intake. 6. Urinary retention. This is improved. Being managed by the primary care team and Urology team. 7. Mild anemia. Continue to watch for now. 8. The patient will continue on Imodium as needed. Hold Imodium for any kind of constipation. The above plan of care was discussed with the patient, and all questions were answered. Please call us with any further questions. cc: MD Bradley Walden MD
[2018-06-30] MEDS: CLINIMIX E 4.25%-5% SOLUTION 1,000 ML IV SCH (10:59)
[2018-06-30] MEDS: ZOFRAN IV PRN (12:06)
[2018-06-30] MEDS: LEVAQUIN 500 MG/D5W 500 MG/100 ML IVPB IV SCH (15:10)
[2018-06-30] MEDS: GABAPENTIN ENACARBIL PO SCH (18:07)
[2018-06-30] MEDS: ULTRAM ER PO SCH (18:07)
--- NOTE | 2018-06-30 18:54 | GENERAL SURGERY PROGRESS NOTE ---
DATE: 06/30/2018 SUBJECTIVE: No fevers. Abdomen is soft, no pain. Her stools are becoming more formed. OBJECTIVE: Pulse is 115, blood pressure 97/70. General: She is alert. Abdomen is soft, nontender, nondistended. Integument is warm and dry. LABORATORY DATA: No new labs yet today. ASSESSMENT AND PLAN: A 77-year-old female with presumed ischemic colitis. Clinically she seems to be improving. Her blood pressures are a little more marginal this afternoon. They had been okay overnight. I do feel as though her colitis is improving based off her exam and clinical findings. We will continue antibiotics and bowel rest. cc: MD Bradley Doll MD
--- NOTE | 2018-06-30 21:57 | PROGRESS NOTE ---
DATE: 06/30/2018 SUBJECTIVE: The patient is doing better and no significant complaints. EXAM: Vital Signs: Low-grade fever, vitals are stable. HEENT: Within normal limits. Neck: Supple. No lymphadenopathy. Chest: Clear to auscultation. Heart: Sounds are regular. Abdomen: Belly is soft, nontender. Good bowel sounds. Neurologic: No neurological deficits. INVESTIGATIONS: None. ASSESSMENT AND PLAN: 1. Ischemic colitis. Continue antibiotics for 2 weeks. 2. Out of the bed with physical therapy. 3. Neurogenic bladder on Murphy. 4. Decrease the Robaxin and will discuss with the family for possible discharge over the weekend. LEVEL OF DOCUMENTATION: 15. cc: Bradley Mcdonald MD
[2018-07-01] MEDS: CLINIMIX E 4.25%-5% SOLUTION 1,000 ML IV SCH ×2 (00:48→13:43)
[2018-07-01] MEDS: FLAGYL PO SCH ×3 (05:59→21:10)
[2018-07-01] MEDS: ZOFRAN IV PRN (05:59)
[2018-07-01] MEDS: PROTONIX PO SCH ×2 (05:59→21:10)
[2018-07-01] MEDS: ROBAXIN PO SCH ×2 (08:24→21:10)
[2018-07-01] MEDS: CULTURELLE PO SCH ×2 (08:24→21:10)
[2018-07-01 09:42] LABS: AGAP 9; ALB/GLOB RATIO 0.9; ALBUMIN 2.7 g/dL (3.5-5.0); ALKALINE PHOSPHATASE 317 U/L (32-104); BUN 22 mg/dL (8-22); CALCIUM 8.7 mg/dL (8.8-10.2); CHLORIDE 93 mmol/L (98-107); COSMO 262; CREATININE 0.5 mg/dL (0.5-0.9); ESTIMATED GFR > 60; GLUCOSE 203 mg/dL (70-104); GOT 11 U/L (10-30); GPT 6 U/L (10-36); POTASSIUM 4.3 mmol/L (3.5-5.1); SODIUM 126 mmol/L (136-145); TCO2 24 mmol/L (25-35); TOTAL BILIRUBIN 0.21 mg/dL (0.20-1.00); TOTAL PROTEIN 5.6 g/dL (6.3-8.3)
[2018-07-01] MEDS: LOVENOX SUBQ SCH (11:42)
--- NOTE | 2018-07-01 12:18 | GENERAL SURGERY PROGRESS NOTE ---
DATE: 07/01/2018 SUBJECTIVE: Plan is for rehab. No pain. Diarrhea is improving. She is tolerating some p.o. No fevers. Low-grade tachycardia which is stable. OBJECTIVE: Abdomen: Soft. Integument: Warm and dry. ASSESSMENT: Ischemic colitis seems to be resolving. PLAN: Continue current management and follow along. cc: MD Bradley Doll MD
[2018-07-01] MEDS: LEVAQUIN 500 MG/D5W 500 MG/100 ML IVPB IV SCH (13:45)
--- NOTE | 2018-07-01 17:53 | PROGRESS NOTE ---
DATE: 07/01/2018 SUBJECTIVE: The patient continues to be confused, dwindling of activities of daily living. No diarrhea. Formed stool noted. The daughter was very demanding that she is not getting adequate physical therapy. The patient is refusing to go for LTAC versus rehab facility. She is almost bedridden and getting shortness of breath and dwindling tachycardia. PHYSICAL EXAMINATION: Vital Signs: Temp is 97, pulse is 110, blood pressure 120/66, 90% on room air. HEENT: Within normal limits. Chest: Bilateral air entry. Cardiovascular: Heart sounds are tachycardic. Abdomen: Belly is soft, nontender. Murphy was placed. No peripheral edema. INVESTIGATIONS: CMP: Sodium 126, potassium 4.3, BUN 22, creatinine 0.5, glucose 200. Alkaline phosphorous 317. Stool cultures: Staphylococcus aureus. Urine was negative. ASSESSMENT AND PLAN: 1. Hyponatremia due to SIADH. 2. Deep vein thrombosis prophylaxis with Lovenox. 3. Physical therapy. 4. We will do the CBC in the morning. 5. Continue IV Clinimix. Continue on probiotics. Continue on Levaquin and Flagyl for ischemic colitis and tramadol for pain. Neurogenic bladder, slowly decreasing, Robaxin. LEVEL OF DOCUMENTATION: 25 minutes. cc: Bradley Mcdonald MD
[2018-07-01] MEDS: ULTRAM ER PO SCH (18:47)
[2018-07-01] MEDS: GABAPENTIN ENACARBIL PO SCH (18:59)
--- NOTE | 2018-07-01 23:40 | PROVIDER PROGRESS NOTE ---
Progress Note SUBJECTIVE: No acute overnight events. Afebrile. No N/V, CP, SOB, abdominal pain. Patient reports having 2 loose stools that were nonbloody. Daughter at bedsided if frustrated with the slow or lack there of of progress. OBJECTIVE: Last Vital Signs Temp 98 F 07/01/18 23:34 Pulse 112 H 07/01/18 23:34 Resp 15 07/01/18 23:34 BP 103/62 07/01/18 23:34 Pulse Ox 95 07/01/18 23:34 Height 5 ft 7 in Weight 140 lb 12.8 oz GEN: awake, alert, NAD, chronic ill appearing laying in bed HEENT: anicteric, MMM, EOMI NECK: supple, no jvd CV: RRR, no murmurs PULM: CTAB, no wheezing ABD: soft, NT/ND, NABS EXT: no cce NEURO: nonfocal LABS: 07/01/18 09:00 Sodium 126 L Potassium 4.3 Chloride 93 L Carbon Dioxide 24 L BUN 22 Creatinine 0.5 Total Bilirubin 0.21 AST 11 ALT 6 L Alkaline Phosphatase 317 H Total Protein 5.6 L Albumin 2.7 L Colonoscopy 06/27 POSTOPERATIVE DIAGNOSIS: 1. Severe colitis in the descending colon starting at 30 cm up to 50 cm from the anal verge. This was biopsied to evaluate ischemic colitis. There was evidence of stool in the right colon. The bowel prep was fair. 2. Internal hemorrhoids grade 1. Retroflexion of the anus. PATH 06/27 Large intestine, descending, biopsy: - Active colitis with edema. A/P: Ms. Mendoza is a 77 year old woman with PMH of HTN, HLD, NIDDM2, OA, GERD, peripheral neuropathy, vertigo who represented with ischemic colitis. Her symptom unchanged today. Surgery following who recommends non-surgical mgmt given improvement in symptoms. She also is having urinary retention and is eating poorly. #Ischemic colitis - on levaquin and flagyl, continue to complete 10-14 day course - cont GI soft diet - avoid hypotension, constipation - surgery consulted; non-surgical mgmt recommended for now - recommend follow-up colonoscopy in 3-6 months to assess for healing #Diarrhea: improving #Urinary retention: s/p welch; seen by urology; defer to primary team #PAD: noted #Hyponatremia: Na 126; defer mgmt to primary #GERD: on PPI #Malnutrition: on climinix; encourage PO intake, supplement nutrition PO Will follow with you. Please call with questions
[2018-07-02] MEDS: CLINIMIX E 4.25%-5% SOLUTION 1,000 ML IV SCH ×3 (04:12→21:51)
[2018-07-02] MEDS: FLAGYL PO SCH ×3 (06:21→21:50)
[2018-07-02] MEDS: PROTONIX PO SCH ×2 (06:21→21:50)
[2018-07-02 07:54] LABS: BASO# 0.05 X1000 (0.0-0.2); BASO% 0.6 % (0.0-0.8); EOS# 0.09 X1000 (0.0-0.7); EOS% 1.1 % (0.0-10.0); HEMATOCRIT 34.6 % (37.0-47.0); HEMOGLOBIN 11.4 g/dL (12.0-16.0); IMM GRAN# 0.41 X1000 (0.0-0.04); IMM GRAN% 4.9 % (0.0-0.5); LYMPH# 2.58 X1000 (1.2-3.4); LYMPH% 31.1 % (20.5-51.1); MCH 28.8 PG (27-31); MCHC 32.9 g/dL (33-37); MCV 87.4 FL (81-99); MONO# 1.36 X1000 (0.11-0.59); MONO% 16.4 % (1.7-9.3); MPV 9.7 FL (7.4-10.4); NEUT% 45.9 % (42.2-75.2); PLT 432 X1000 (130-400); RBC 3.96 XMIL (4.2-5.4); RDW 16.8 % (11.5-14.5); WBC 8.29 X1000 (4.8-10.8)
--- NOTE | 2018-07-02 08:17 | Diag Imaging Result Doc PS360 ---
EXAM: CHEST-2 VIEWS INDICATION: hypoxia TECHNIQUE: 2 views COMPARISON: 06/08/2018 FINDINGS: There is stable elevation of the right hemidiaphragm. There is evidence of prior granulomatous disease, stable. There is mild atelectasis at the lower lung zone on the right. The lungs are grossly clear, otherwise. There is no discrete pleural fluid collection or pneumothorax. The cardiomediastinal silhouette and central vasculature are grossly unremarkable. IMPRESSION: Mild atelectasis at the right lower lung zone. No definite acute pathology by plain radiograph, otherwise. Electronically signed by Sudheer Randall 07/02/2018 8:14 AM
[2018-07-02 08:27] LABS: AGAP 9; BUN 20 mg/dL (8-22); CALCIUM 8.9 mg/dL (8.8-10.2); CHLORIDE 97 mmol/L (98-107); COSMO 267; CREATININE 0.4 mg/dL (0.5-0.9); ESTIMATED GFR > 60; GLUCOSE 159 mg/dL (70-104); POTASSIUM 4.4 mmol/L (3.5-5.1); SODIUM 130 mmol/L (136-145); TCO2 24 mmol/L (25-35)
[2018-07-02] MEDS: ROBAXIN PO SCH ×2 (09:41→21:50)
[2018-07-02] MEDS: CULTURELLE PO SCH ×2 (09:41→21:50)
[2018-07-02] MEDS: LOVENOX SUBQ SCH (09:43)
[2018-07-02] MEDS: ZOFRAN IV PRN (12:12)
--- NOTE | 2018-07-02 12:37 | PROGRESS NOTE ---
DATE: 07/02/2018 SUBJECTIVE: The patient is a little better than yesterday. She had more strength, more positive attitude. OBJECTIVE: Vital Signs: On examination, temperature is 97 degrees. Slightly tachycardic. Vitals are stable. HEENT: Exam within normal limits. Chest: Clear. Heart: Sounds are regular. Abdomen: Belly is soft, nontender. Murphy was placed. Extremities: No edema. LABS: CBC: White cell count 8.2, hematocrit 34, platelets 432. Sodium 130, potassium 4.4. BUN 20, creatinine 0.4. Increase the alkaline phosphate. X-RAYS: Chest x-ray was with mild atelectasis in the right lower lung zone. ASSESSMENT AND PLAN: 1. Atelectasis in the right lower lung zone. Incentive spirometry. Out of the bed with physical therapy. 2. Ischemic colitis. Continue oral antibiotics for 2 weeks. 3. Neurogenic bladder. Continue on Murphy. 4. Deconditioning. Family agreed finally to go for rehab. Library Sales Consultant consult for rehab placement next week. LEVEL OF DOCUMENTATION: 25 minutes. cc: Bradley Mcdonald MD
--- NOTE | 2018-07-02 12:56 | GENERAL SURGERY PROGRESS NOTE ---
DATE: 07/02/2018 SUBJECTIVE: She is sleeping this morning. No events are documented overnight. Heart rate is about the same. No fevers. She is resting comfortably. White count is 8 this morning. Hematocrit is 34, creatinine 0.4. Her CO2 is 24 on her metabolic panel. ASSESSMENT AND PLAN: This is a 77-year-old female with left colitis, most likely ischemic. Seems to be clinically improving. Her bowel function is normalizing, and her exam has been benign, as well as her labs. We will follow her closely. Continue medical management, bowel rest and nutritional support. cc: MD Bradley Doll MD
[2018-07-02] MEDS: LEVAQUIN 500 MG/D5W 500 MG/100 ML IVPB IV SCH (13:32)
[2018-07-02] MEDS: ULTRAM ER PO SCH (18:23)
[2018-07-02] MEDS: GABAPENTIN ENACARBIL PO SCH (18:25)
[2018-07-03] MEDS: FLAGYL PO SCH ×3 (05:59→20:45)
[2018-07-03] MEDS: PROTONIX PO SCH ×2 (05:59→20:31)
[2018-07-03] MEDS: CLINIMIX E 4.25%-5% SOLUTION 1,000 ML IV SCH ×3 (07:28→20:38)
[2018-07-03] MEDS: ROBAXIN PO SCH ×2 (11:01→20:31)
[2018-07-03] MEDS: LOVENOX SUBQ SCH (11:01)
[2018-07-03] MEDS: CULTURELLE PO SCH ×2 (11:01→20:31)
--- NOTE | 2018-07-03 13:17 | PROGRESS NOTE ---
DATE: 07/03/2018 SUBJECTIVE: The patient is getting better. No complaints. OBJECTIVE: Vitals: Temp is 97 degrees, vitals are stable. HEENT: Exam within normal limits. Neck: Supple. Chest: Clear to auscultation. Heart: Sounds are regular. Abdomen: Belly is soft, nontender. Murphy was placed. ASSESSMENT AND PLAN: 1. Ischemic colitis. Continue outpatient antibiotics for 2 weeks. 2. Neurogenic bladder. Murphy. 3. Deconditioning. 4. Chronic pain. Decrease Robaxin and continue on Tramadol. 5. Encourage for ambulation. Finally agreed for rehab and social and human services assistant consult for rehab placement. LEVEL OF DOCUMENTATION: 25 minutes. cc: Bradley Mcdonald MD
[2018-07-03] MEDS: LEVAQUIN 500 MG/D5W 500 MG/100 ML IVPB IV SCH (14:53)
[2018-07-03] MEDS: GABAPENTIN ENACARBIL PO SCH (18:10)
[2018-07-03] MEDS: ULTRAM ER PO SCH (18:11)
[2018-07-04] MEDS: FLAGYL PO SCH ×3 (06:35→22:53)
[2018-07-04] MEDS: PROTONIX PO SCH ×2 (06:35→22:53)
--- NOTE | 2018-07-04 08:01 | EKG Report ---
Test Performed on : 07/02/2018 06:31:23 AM Test Reason : cp Blood Pressure : / mmHG Vent. Rate : 104 BPM Atrial Rate : 104 BPM P-R Int : 146 ms QRS Dur : 100 ms QT Int : 360 ms P-R-T Axes : 035 -42 183 degrees QTc Int : 473 ms Sinus tachycardia. Left axis deviation ST & T wave abnormality, consider inferior ischemia ST & T wave abnormality, consider anterolateral ischemia Abnormal ECG When compared with ECG of 21-JUN-2018 08:30, (Unconfirmed) Minimal criteria for Anterior infarct are no longer present T wave inversion more evident in Inferior leads Confirmed by Zana LEMA, [place] ([id number]) on 07/04/2018 9:15:11 AM
[2018-07-04] MEDS: LOVENOX SUBQ SCH (08:37)
[2018-07-04] MEDS: ROBAXIN PO SCH ×2 (08:37→22:53)
[2018-07-04] MEDS: CULTURELLE PO SCH ×2 (08:37→22:53)
[2018-07-04] MEDS: CLINIMIX E 4.25%-5% SOLUTION 1,000 ML IV SCH ×2 (08:37→22:51)
[2018-07-04] MEDS: METAMUCIL PO SCH (08:39)
--- NOTE | 2018-07-04 09:50 | GENERAL SURGERY PROGRESS NOTE ---
DATE: 07/04/2018 SUBJECTIVE: She is tearful this morning. Says she had to lay on her side all night and did not get moved. She says her back is hurting. OBJECTIVE: Vitals: No fevers, no tachycardia. Blood pressure has been stable 111/59, oxygen saturation 95%. General: She is alert. Abdomen: Soft. No tenderness. LABORATORY: White count is 8, hematocrit 34. Creatinine 0.4. ASSESSMENT AND PLAN: Left colitis, improving. Medical management. We will continue to follow along. cc: MD Bradley Doll MD
--- NOTE | 2018-07-04 10:54 | GASTROENTEROLOGY PROGRESS NOTE ---
DATE: 07/04/2018 SUBJECTIVE: Patient resting in bed. She is feeling better. Daughter with the patient. Denies any new complaints. Denies any fevers, rigors, or chills. She has been moving her bowels. OBJECTIVE: Vital signs: Temperature 98.1 degrees, pulse rate 104, respiratory rate 18, blood pressure of 90/51, saturating 90% on room air. General Appearance: Moderately-built, lying in bed, in no acute distress. HEENT: Mild pallor. No icterus. Neck: Supple. Abdomen: Soft, nontender, nondistended. No guarding. Extremities: No cyanosis, clubbing. Neurologic: She is alert, awake, oriented. LABS: Hemoglobin and hematocrit 11.4 and 34.6, white count of 8.9, platelet count of 432,000. Sodium 130, potassium 4.4, chloride 97, bicarb 24, anion gap 9, BUN of 20 creatinine 0.4 glucose of 159, calcium 8.9. Her AST 11, ALT 6 alkaline phosphatase 317, total protein 5.6, albumin of 2.7. Urine culture showed no growth. Stool for white cells is rare. Stool culture shows Staphylococcus aureus on 06/21 stool C difficile toxin is negative. IMPRESSION AND PLAN: 1. Ischemic colitis in the left colon it is improving. Dr. Lawson is on board. No surgical plans this moment. She will continue antibiotics for 2 weeks. We will keep her on probiotics in the form of Culturelle twice daily for 6 weeks. 2. History of constipation. We will keep her on Metamucil 1 tablespoon every day. 3. Neurogenic bladder. She has a Murphy. 4. Chronic pain. She is on tramadol. 5. Gastrointestinal prophylaxis, proton pump inhibitor. 6. Mild anemia. Continue to watch for now. We will start on multivitamins daily. 7. Elevated alkaline phosphatase but normal ALT, AST we will check a GGT. 8. Gallstones seen on the imaging on 06/07/2018, asymptomatic at the moment. Continue to watch. Dr. Lawson is on board. 9. 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 Aware. 10. Above discussed with the patient and family. All questions answered. Please call us with any further questions. cc: MD Bradley Walden MD
[2018-07-04] MEDS: LEVAQUIN 500 MG/D5W 500 MG/100 ML IVPB IV SCH (15:26)
[2018-07-04] MEDS: GABAPENTIN ENACARBIL PO SCH (18:30)
[2018-07-04] MEDS: ULTRAM ER PO SCH (18:30)
--- NOTE | 2018-07-04 18:46 | PROGRESS NOTE ---
DATE: 07/04/2018 SUBJECTIVE: The patient is getting better. The daughter is at bedside finally and planning to go for rehab. OBJECTIVE: On exam, temperature is 98. Slightly tachycardic. Vitals are stable. The patient is resting well. Ambulating well in the room. Chest is clear. Heart sounds are regular. Belly is soft, nontender. No obvious deficits noted. ASSESSMENT AND PLAN: 1. Ischemic colitis, stable. Continue 2 weeks of p.o. antibiotics. 2. Neurogenic bladder. Continue on Murphy. 3. Continue IV TPN. 4. Decrease the Robaxin slowly once a day. The patient is medically stable to be transferred to rehab. Silo Painter consult was obtained and will follow up. LEVEL OF DOCUMENTATION: 25 minutes. cc: Bradley Mcdonald MD
[2018-07-05] MEDS: FLAGYL PO SCH (06:55)
[2018-07-05] MEDS: PROTONIX PO SCH (06:55)
[2018-07-05] MEDS ORDERED: CENTRUM SILVER PO SCH (09:00)
--- NOTE | 2018-07-05 09:33 | DISCHARGE SUMMARY ---
ADMISSION DATE: 06/21/2018 DISCHARGE DATE: 07/05/2018 DISCHARGING DIAGNOSIS: Left-sided abdominal pain due to ischemic colitis. SECONDARY DIAGNOSES: 1. History of gallstones. 2. Type 2 diabetes diet controlled. 3. Bladder retention due to neurogenic bladder from the colitis and Robaxin with the indwelling Murphy catheter. 4. Deconditioning. 5. Chronic pain due to right hip fracture of hallux valgus deformities of the foot. 6. Hyponatremia due to dehydration. CONSULTATIONS: 1. Dr. Matson/Dr. Tirado. 2. Dr. Lawson, surgical consult. PROCEDURES: Colonoscopy. FINDINGS: 1. Severe colitis in the descending colon started at 30 cm up to 50 cm from the anal verge. The biopsy is consistent with active colitis most likely ischemic. 2. Internal hemorrhoids. BRIEF HISTORY: Please see the History and Physical that was done on 06/21/2018. In brief, she is a 77-year-old white female with above problems. Was readmitted 3rd time due to recurrent abdominal pain, diarrhea, dehydration. She has been diagnosed with colitis which was treating with the Levaquin and Flagyl. She has substantial diarrhea, not able to eat, associated with deconditioning and dehydration and chronic pain. HOSPITAL COURSE: 1. The patient was given IV saline. Follow up sodium levels came to 130. Subsequently, changed to the IV Clinimix. 2. The patient was given Levaquin and Flagyl. During this time, colonoscopy was done with above findings. 3. Dr. Matson consulted Dr. Lawson if things will not get better on medical management. She continues to form stools. Stool cultures grew Staph aureus, which is most likely colonization. She did not have any active staph infection. She was advised to continue on probiotics and Levaquin and Flagyl as directed for 10 days. We attempted to discontinue the Murphy catheter and she continues to have postvoid residual urine more than 900. Murphy catheter was placed back. Dr. Sandoval felt this is probably due to the colitis and Robaxin. I cut down the Robaxin 500 b.i.d. and slowly weaned off. The patient has deconditioning and bedridden; not able to do her activities. As a result at the request of the family, she has been sent to rehab for convalescence. Dr. Lawson felt that she is medically stable. We will hold off the surgery at this time and patient has been discharged to rehab in a stable condition. LABORATORY DATA: White cell count came back normal 8.2, hematocrit 34, platelets 432,000. SMA Sodium 130, potassium 4.4, chloride 97, BUN 20, creatinine 0.4. Urinalysis is clear. C. Diff cultures were negative. Urine cultures were negative. DISCHARGE INSTRUCTIONS: 1. Out of the bed with physical therapy. 2. Continue Murphy catheter and try bladder voiding trials. 3. Care of the skin, bladder, and bowels. 4. Probiotic 1 tablet daily, gabapentin 600 daily, meclizine as needed, multivitamin 1 tablet daily, Flagyl 500 q. 8 h for 10 days, Icar C Plus 1 tablet p.o. b.i.d., Levaquin 500 daily for 10 days, Robaxin 500 p.o. b.i.d., tramadol extended release 300 daily and follow up with Dr. Matson and in my office in 2 weeks. cc: MD Clif Meneses MD R. Tyler Harney, MD Michael Kelso, MD Manish Arora, MD MTDD
[2018-07-05] MEDS: LOVENOX SUBQ SCH (10:42)
[2018-07-05] MEDS: CULTURELLE PO SCH (10:42)
[2018-07-05] MEDS: ROBAXIN PO SCH (10:42)
[2018-07-05] MEDS: METAMUCIL PO SCH (10:42)
[2018-07-05] MEDS: CLINIMIX E 4.25%-5% SOLUTION 1,000 ML IV SCH (10:46)
[2018-07-05 11:46] VITALS: BP 119/79
== END 2018-07-05 13:00 | DRG 394 ==
LOC: SUPCPDRO → ED 08:23 → 3N 18:49
PROVIDERS: ADMIT Internal Medicine; ATTEND Internal Medicine
CPT/HCPCS: 71020; 71046; 80048; 80053; 81001; 82948; 82977; 84134; 85025; 87045; 87046; 87077; 87088; 87186; 87205; 87324; 88305; 88313; 89055; 93005; 93010; 96361; 96365; 96366; 97116; 97162; 97530; 99285; A9270; J0696; J1650; J1956; J2405; J7030; XXXXX

== ENCOUNTER 2018-07-30 17:18 | Inpatient (IN) ==
[2018-07-30 18:48] LABS: BLOOD TYPE ARTERIAL; METHB 1.1 % (0.0-1.5); O2(CT) 16.1 mL/dL (15.0-23.0); PCO2(98.6) 36 mmHg (35-45); PO2(98.6) 66 mmHg (60-100); SAMPLE BLOOD; SAO2 96.7 % (95.0-100.0); THB 12.2 g/dL (11.5-17.4); pH(98.6) 7.49 (7.35-7.45)
[2018-07-30 18:49] LABS: ALLEN TEST YES; MODALITY ROOM AIR
--- NOTE | 2018-07-30 18:50 | Diag Imaging Result Doc PS360 ---
EXAM: CHEST-PORTABLE HISTORY: confusion, weight loss TECHNIQUE: Portable chest single view COMPARISON: 07/02/2018 FINDINGS: Poor inspiratory effort. No cardiomegaly. Small left pleural effusion. There are basilar infiltrates and atelectasis. Right hemidiaphragm is elevated. IMPRESSION: Small basilar infiltrates and atelectasis. Follow-up PA and lateral recommended. Electronically signed by Ruddy Samuel 07/30/2018 6:48 PM
--- NOTE | 2018-07-30 19:04 | PROVIDER DOCUMENTATION ---
This chart was entered by Jovan Lucero Scribe, acting as scribe for Sloan Fonseca MD. HPI-General Adult - General Source: family - History of Present Illness -Gen Adult Nature of Presenting Problems: 77 y/o F presents to the ED via EMS with family due to increased weakness and weight loss. Family reports patient was discharged from the hospital x3 weeks ag o and sent to rehab. Family reports while patient was in rehab she lost 30 lbs and has not been eating since being in the hospital. Family reports that they removed her x3 days ago from the rehab facility. Home health has been coming to patients house and sent her here due to symptoms and also foul smelling urine. Family report that patient has also had elevated blood sugar in the 300s. Location of Pain/Injury: reports: none Severity: reports: mild Onset/Duration: reports: other Timing: reports: still present Context/Activities at Onset: reports: none Modifying Factors: improves with: nothing Similar Symptoms Previously?: Yes Recently seen or treated by another doctor?: Yes <Sloan Fonseca - Last Filed: 07/30/18 19:04> <Frankie Simon - Last Filed: 07/30/18 20:44> - General Chief Complaint: Weakness Stated Complaint: WEAKNESS, CONFUSED Time Seen by Provider: 07/30/18 17:30 Allergies/Adverse Reactions: Patient Allergies Allergy/AdvReac Type Severity Reaction Status Date / Time sulfamethoxazole Allergy Severe SWELLING Verified 06/21/18 09:15 [From Bactrim] trimethoprim [From Bactrim] Allergy Severe SWELLING Verified 06/21/18 09:15 morphine Allergy Unknown Verified 06/21/18 09:15 Home Medications: Home Medication List Medication Instructions Recorded Confirmed Last Taken Type Gabapentin Enacarbil [Horizant] 600 mg PO DAILY 04/04/15 06/21/18 07/21/17 09:00 History Meclizine [Antivert] 12.5 mg PO TID PRN PRN #20 tab 05/27/18 06/21/18 06/06/18 Rx Tramadol HCl [Tramadol HCl ER] 300 mg PO DAILY #20 tab.er.24h 06/02/18 06/21/18 06/06/18 Rx Iron Carbonyl/Ascorbic Acid 1 ea PO BID #60 tab 06/15/18 06/21/18 Unknown Rx [Icar-C] Levofloxacin [Levaquin] 500 mg PO DAILY #10 tab 06/15/18 06/21/18 Unknown Rx Lactobacillus Rhamnosus GG 1 ea PO BID cap 07/05/18 Unknown Rx [Culturelle] Methocarbamol [Robaxin] 500 mg PO BID tab 07/05/18 Unknown Rx Metronidazole [Flagyl] 500 mg PO Q8H tab 07/05/18 Unknown Rx Multivitamins/Minerals [Centrum 1 ea PO DAILY tab 07/05/18 Unknown Rx Silver] Review of Systems - Adult - REVIEW OF SYSTEMS - ADULT ROS:: ROS per family Constitutional: reports: weight loss. denies: chills, fever Eyes: reports: no symptoms reported Ears, Nose, Mouth & Throat: reports: no symptoms reported Cardiovascular: denies: chest pain, palpitations Respiratory: reports: no symptoms reported Gastrointestinal: reports: poor appetite. denies: diarrhea, nausea, vomiting Genitourinary: reports: no symptoms reported Musculoskeletal: reports: no symptoms reported Integumentary: reports: no symptoms reported Neurological: reports: other (increased weakness; altered mental status). denies: dizziness/vertigo, headache/migraines Psychiatric: reports: no symptoms reported Endocrine: reports: no symptoms reported Hematologic/Lymphatic: reports: no symptoms reported Allergic/Immunologic: reports: no symptoms reported All Other Systems: Reviewed and Negative <Sloan Fonseca - Last Filed: 07/30/18 19:04> Past History - Adult - PAST MEDICAL HISTORY-ADULT Review of Records: reports: Nursing Assessment Review, Medications Reviewed Major Childhood Illnesses: reports: denies history Cardiovascular: reports: HTN Respiratory: reports: denies history Gastrointestinal: reports: other (ischemic colitis) Obstetrical/Gynecological: reports: denies history Genitourinary: reports: denies history Musculoskeletal: reports: arthritis Neurological: reports: denies history Endocrine/Immune: reports: Diabetes Other Conditions: reports: denies history - PRIOR SURGERIES/PROCEDURES Surgical/Procedure History: reports: orthopedic (extremity) (right foot) - PRIOR HOSPITALIZATIONS Prior Hospitalizations: reports: none - IMMUNIZATION STATUS Childhood Immunizations: See Nurse Assessment Flu Vaccine: See Nurse Assessment - FAMILY HISTORY Family History: reviewed, not pertinent <Sloan Fonseca - Last Filed: 07/30/18 19:04> Physical Exam-General - PHYSICAL EXAM-ADULT Initial Vital Signs Reviewed: Yes - CONSTITUTIONAL General Appearance: alert, no apparent distress, other (sleepy appearance but f ollows commands) - EYES Eyes: pale conjunctivae - HEAD, EARS, NOSE, MOUTH & THROAT HENMT: normal ENT inspection, other (dry mucous membranes) - NECK Neck: full range of motion, normal inspection - RESPIRATORY Respiratory: lungs clear, normal breath sounds, no respiratory distress, no accessory muscle use - CARDIOVASCULAR Cardiovascular: normal peripheral pulses, tachycardia - GASTROINTESTINAL (ABDOMEN) Abdominal Exam: normal bowel sounds, non tender, soft, other (indwelling welch cath with cloudy urine) - MUSCULOSKELETAL Extremity: pedal edema - SKIN Integumentary: warm/dry, other (stage 1 bedsore to buttock) - PSYCHIATRIC Psych/Mental Status: oriented x 3 <Sloan Fonseca - Last Filed: 07/30/18 19:04> Progress - CHANGE OF SHIFT REPORT (ED Provider) 1 Report Given and Care Transferred to:: [facility] Time of Transfer: 19:00 <Sloan Fonseca - Last Filed: 07/30/18 19:04> - PLAN OF CARE/RESULTS Progress/Plan/Lab Results: Vital Signs - 8 hr 07/30/18 19:00 07/30/18 19:32 07/30/18 19:53 Pulse Rate 108 H 109 H 108 H Respiratory Rate 18 20 19 Blood Pressure 91/64 92/60 O2 Sat by Pulse Oximetry 99 97 97 07/30/18 20:00 07/30/18 20:02 07/30/18 20:10 Pulse Rate 109 H 111 H 108 H Respiratory Rate 22 18 23 Blood Pressure 120/72 O2 Sat by Pulse Oximetry 97 98 97 Laboratory Results - last 24 hr 07/30/18 07/30/18 07/30/18 18:37 19:15 19:15 WBC 19.55 H RBC 4.44 Hgb 13.0 Hct 39.1 MCV 88.1 MCH 29.3 MCHC 33.2 RDW Std Deviation 17.3 H Plt Count 505 H MPV 9.6 Immature Gran % (Auto) 1.0 H Neut % (Auto) 77.9 H Lymph % (Auto) 11.7 L Lipscomb % (Auto) 9.0 Eos % (Auto) 0.2 Baso % (Auto) 0.2 Immature Gran # (Auto) 0.20 H Neut # (Auto) 15.24 H Lymph # (Auto) 2.28 Lipscomb # (Auto) 1.76 H Eos # (Auto) 0.03 Baso # (Auto) 0.04 PT INR PTT (Actin FS) Specimen Type ARTERIAL Sample Site R RADIAL pH 7.49 H pCO2 36 pO2 66 HCO3 28.0 H Base Excess 4.0 H Oxyhemoglobin 94.0 L ABG O2 Sat (Calculated) 16.1 ABG O2 Saturation 96.7 ABG Carboxyhemoglobin 1.80 ABG Methemoglobin 1.1 Ian Test YES A-a O2 Difference 39.0 Total Hemoglobin 12.2 Lactate 2.20 Blood Gas Modality ROOM AIR FiO2 % 21.0 Sodium 130 L Potassium 4.8 Chloride 92 L Carbon Dioxide 26 Anion Gap 12 BUN 25 H Creatinine 0.7 Estimated GFR/1.73 m2 > 60 BUN/Creatinine Ratio 36 Glucose 251 H POC Glucose Calculated Osmolality 274 Calcium 8.8 Total Bilirubin 0.32 AST 29 ALT 10 Alkaline Phosphatase 209 H Creatine Kinase 10 L Troponin T Total Protein 5.8 L Albumin 2.4 L Globulin 3.4 Albumin/Globulin Ratio 0.7 Plasma Lactate Urine Source Urine Color Urine Turbidity Urine pH Ur Specific Valliant Urine Protein Ur Glucose (Stick) Ur Ketones (Stick) Urine Blood Urine Nitrite Urine Bilirubin Urobilinogen Dipstick Urine Leukocytes Urine WBC (Auto) Urine RBC (Auto) U Epithel Cells (Auto) Urine Bacteria (Auto) Urine Crystals Small Round Cells Urine Casts Urine Yeast-like Cells 07/30/18 07/30/18 07/30/18 19:15 19:15 19:15 WBC RBC Hgb Hct MCV MCH MCHC RDW Std Deviation Plt Count MPV Immature Gran % (Auto) Neut % (Auto) Lymph % (Auto) Lipscomb % (Auto) Eos % (Auto) Baso % (Auto) Immature Gran # (Auto) Neut # (Auto) Lymph # (Auto) Lipscomb # (Auto) Eos # (Auto) Baso # (Auto) PT 14.8 INR 1.08 PTT (Actin FS) 28.9 Specimen Type Sample Site pH pCO2 pO2 HCO3 Base Excess Oxyhemoglobin ABG O2 Sat (Calculated) ABG O2 Saturation ABG Carboxyhemoglobin ABG Methemoglobin Ian Test A-a O2 Difference Total Hemoglobin Lactate Blood Gas Modality FiO2 % Sodium Potassium Chloride Carbon Dioxide Anion Gap BUN Creatinine Estimated GFR/1.73 m2 BUN/Creatinine Ratio Glucose POC Glucose Calculated Osmolality Calcium Total Bilirubin AST ALT Alkaline Phosphatase Creatine Kinase Troponin T 0.061 Total Protein Albumin Globulin Albumin/Globulin Ratio Plasma Lactate 3.4 H Urine Source Urine Color Urine Turbidity Urine pH Ur Specific Valliant Urine Protein Ur Glucose (Stick) Ur Ketones (Stick) Urine Blood Urine Nitrite Urine Bilirubin Urobilinogen Dipstick Urine Leukocytes Urine WBC (Auto) Urine RBC (Auto) U Epithel Cells (Auto) Urine Bacteria (Auto) Urine Crystals Small Round Cells Urine Casts Urine Yeast-like Cells 07/30/18 07/30/18 19:38 19:44 WBC RBC Hgb Hct MCV MCH MCHC RDW Std Deviation Plt Count MPV Immature Gran % (Auto) Neut % (Auto) Lymph % (Auto) Lipscomb % (Auto) Eos % (Auto) Baso % (Auto) Immature Gran # (Auto) Neut # (Auto) Lymph # (Auto) Lipscomb # (Auto) Eos # (Auto) Baso # (Auto) PT INR PTT (Actin FS) Specimen Type Sample Site pH pCO2 pO2 HCO3 Base Excess Oxyhemoglobin ABG O2 Sat (Calculated) ABG O2 Saturation ABG Carboxyhemoglobin ABG Methemoglobin Ian Test A-a O2 Difference Total Hemoglobin Lactate Blood Gas Modality FiO2 % Sodium Potassium Chloride Carbon Dioxide Anion Gap BUN Creatinine Estimated GFR/1.73 m2 BUN/Creatinine Ratio Glucose POC Glucose 292 H D Calculated Osmolality Calcium Total Bilirubin AST ALT Alkaline Phosphatase Creatine Kinase Troponin T Total Protein Albumin Globulin Albumin/Globulin Ratio Plasma Lactate Urine Source CATH Urine Color YELLOW Urine Turbidity HAZY Urine pH 6.0 Ur Specific Valliant 1.020 Urine Protein TRACE A Ur Glucose (Stick) NEGATIVE Ur Ketones (Stick) NEGATIVE Urine Blood MODERATE A Urine Nitrite NEGATIVE Urine Bilirubin NEGATIVE Urobilinogen Dipstick NORMAL Urine Leukocytes MODERATE A Urine WBC (Auto) TNTC A Urine RBC (Auto) TNTC A U Epithel Cells (Auto) <10 Urine Bacteria (Auto) 4+ Urine Crystals NONE SEEN Small Round Cells RENAL PRESENT Urine Casts NONE SEEN Urine Yeast-like Cells NONE SEEN Orders Category Date Time Status Cardiac Monitoring DIRECTED Care 07/30/18 17:52 Active Cardiac Monitoring DIRECTED Care 07/30/18 20:28 Active IV Insertion ORDERED Care 07/30/18 20:19 Active IV Insertion ORDERED Care 07/30/18 20:28 Active Notify MD of + Sepsis Screen NOW Care 07/30/18 20:19 Active Notify Physician As Ordered Care 07/30/18 20:19 Active Saline Loc NOW Care 07/30/18 17:52 Active CHEST-PORTABLE [RAD] Stat Exams 07/30/18 17:52 Completed ABG [RESP] Routine Lab 07/30/18 18:37 Completed BLOOD CULTURE [BLDCUL] Stat Lab 07/30/18 20:28 Uncollected CBC WITH ELECTRONIC DIFF [HEME] Stat Lab 07/30/18 19:15 Completed CK PROFILE [SP CHEM] Stat Lab 07/30/18 19:15 Completed COMPREHENSIVE METABOLIC PANEL [CHEM] Stat Lab 07/30/18 19:15 Completed LACTATE, PLASMA [CHEM] Lab 07/30/18 20:30 Uncollected LACTATE, PLASMA [CHEM] Lab 07/30/18 23:30 Uncollected LACTATE, PLASMA [CHEM] Stat Lab 07/30/18 19:15 Completed PROTIME WITH INR [COAG] Stat Lab 07/30/18 19:15 Completed PTT [COAG] Stat Lab 07/30/18 19:15 Completed TROPONIN T Stat Lab 07/30/18 19:15 Completed URINALYSIS [URINALYSIS] Stat Lab 07/30/18 19:38 Completed URINE MANUAL MICROSCOPIC [URINALYSIS] Stat Lab 07/30/18 19:38 Completed 0.9% Sodium Chloride Inj [Ns] 1,000 ml Med 07/30/18 19:58 Active IV 999 mls/hr Azithromycin 500 mg/Ns [Zithromax 500 mg/Ns] Med 07/30/18 20:31 Ordered 500 mg in 250 ml IV NOW CefTRIAXONE [Rocephin] 2 gm Med 07/30/18 20:27 Active 0.9% Sodium Chloride Inj [Ns] 50 ml IV NOW Altered Mental Status Stat Oth 07/30/18 17:52 Ordered Oxygen Device Stat Oth 07/30/18 20:19 Active Oxygen Device Stat Oth 07/30/18 20:28 Active EKG [EKG] Stat Ther 07/30/18 17:52 Ordered Result Diagrams: 07/30/18 19:15 07/30/18 19:15 - CONSULTS/PCP/HOSPITALIST Notification #1 *Consult/PCP/Hospitalist*: DR KOLB Time Discussed: 20:38 Consult Disposition: Admit <Frankie Simon - Last Filed: 07/30/18 20:44> Departure <Sloan Fonseca - Last Filed: 07/30/18 19:04> - Departure Date of Disposition Decision: 07/30/18 Time of Disposition Decision: 20:43 Certified Medical Emergency: Emergent - Critical Care Note This patient required my direct & personal management of CC.: No <Frankie Simon - Last Filed: 07/30/18 20:44> - Departure DIAGNOSIS: Sepsis, UTI (urinary tract infection), Pneumonia due to organism Disposition: ADMITTED INPATIENT 09 Condition: Stable Referrals and Follow-Ups: Chaitanya Mcdonald MD [Primary Care Provider] - Attestation - Physician/ ISIS Attestation Patient care was provided by Advanced Practice Provider:: No The physician spent face to face time with patient:: Yes Advanced Practice Provider documentation review:: Supervising physician onsite and consulted in the evaluation and care of this patient. The physician did have a face to face encounter with the patient. <Sloan Fonseca - Last Filed: 07/30/18 19:04> This chart was documented by the indicated scribe, (Jovan Lucero Scribbrady) and accurately reflects the services I performed and decisions made by me, Sloan Fonseca MD, as attested by the provider's signature.
[2018-07-30 19:31] LABS: BASO# 0.04 X1000 (0.0-0.2); BASO% 0.2 % (0.0-0.8); EOS# 0.03 X1000 (0.0-0.7); EOS% 0.2 % (0.0-10.0); HEMATOCRIT 39.1 % (37.0-47.0); LYMPH# 2.28 X1000 (1.2-3.4); LYMPH% 11.7 % (20.5-51.1); MCH 29.3 PG (27-31); MCHC 33.2 g/dL (33-37); MCV 88.1 FL (81-99); MONO# 1.76 X1000 (0.11-0.59); MPV 9.6 FL (7.4-10.4); NEUT# 15.24 X1000 (1.4-6.5); NEUT% 77.9 % (42.2-75.2); PLT 505 X1000 (130-400); RBC 4.44 XMIL (4.2-5.4); RDW 17.3 % (11.5-14.5); WBC 19.55 X1000 (4.8-10.8)
[2018-07-30 19:37] LABS: INR 1.08; PROTIME 14.8 Seconds (11.0-16.0); PTT 28.9 Seconds (22.3-41.8)
[2018-07-30] MEDS ORDERED: NS 1,000 ML IV ONE (19:58)
[2018-07-30 20:00] LABS: URINE SOURCE CATH
[2018-07-30 20:01] LABS: AGAP 12; ALB/GLOB RATIO 0.7; ALBUMIN 2.4 g/dL (3.5-5.0); ALKALINE PHOSPHATASE 209 U/L (32-104); BUN 25 mg/dL (8-22); CALCIUM 8.8 mg/dL (8.8-10.2); CHLORIDE 92 mmol/L (98-107); CK PROFILE 10 U/L (24-173); COSMO 274; CREATININE 0.7 mg/dL (0.5-0.9); ESTIMATED GFR > 60; GLUCOSE 251 mg/dL (70-104); GOT 29 U/L (10-30); GPT 10 U/L (10-36); POTASSIUM 4.8 mmol/L (3.5-5.1); SODIUM 130 mmol/L (136-145); TCO2 26 mmol/L (25-35); TOTAL BILIRUBIN 0.32 mg/dL (0.20-1.00); TOTAL PROTEIN 5.8 g/dL (6.3-8.3)
[2018-07-30 20:13] LABS: UR EPITHELIAL CELLS <10 /HPF (<10); URINE BACTERIA 4+ /HPF; URINE RBC TNTC /HPF (<10); URINE WBC TNTC /HPF (<10)
[2018-07-30 20:15] LABS: URINE YEAST NONE SEEN
[2018-07-30 20:16] LABS: BILIRUBIN URINE NEGATIVE (NEGATIVE); BLOOD URINE MODERATE (NEGATIVE); COLOR YELLOW; GLUCOSE URINE NEGATIVE (NEGATIVE); KETONE URINE NEGATIVE (NEGATIVE); PROTEIN URINE TRACE mg/dL (NEGATIVE); TURBIDITY URINE HAZY (CLEAR); URINE CASTS NONE SEEN; URINE CRYSTALS NONE SEEN; URINE SMALL ROUND CELLS RENAL PRESENT
[2018-07-30 20:17] LABS: LEUKOCYTES URINE MODERATE (NEGATIVE); NITRITE URINE NEGATIVE (NEGATIVE); UROBILINOGEN URINE NORMAL (NORMAL)
[2018-07-30] MEDS ORDERED: ROCEPHIN 2 GM in NS 50 ML IV ONE (20:27)
[2018-07-30] MEDS ORDERED: ZITHROMAX 500 MG/NS 500 MG/250 ML IVPB IV ONE (20:31)
--- NOTE | 2018-07-30 20:44 | ED EKG INTERP ---
This chart was entered by Rula Mixon Scribe, acting as scribe for Frankie Simon MD. EKG Interpretation - EKG Time of EKG reading by physician:: 19:40 EKG Read and Signed by:: Frankie Siomn EKG Interpretation (*Must complete 3 of following elements*): Abnormal Rate: 109 Rhythm: Sinus tach Kamas: left QRS: other (low voltage QRS; inferior infarct; possible anterolateral infarct) NV Interval: normal ST Wave: normal Attestation - Physician/ ISIS Attestation Patient care was provided by Advanced Practice Provider:: No The physician spent face to face time with patient:: Yes Advanced Practice Provider documentation review:: Supervising physician onsite and consulted in the evaluation and care of this patient. The physician did have a face to face encounter with the patient. This chart was documented by the indicated scribe, (Rula Mixon Scribe) and accurately reflects the services I performed and decisions made by Alfred cisneros Aslam A., MD, as attested by the provider's signature.
[2018-07-30] MEDS ORDERED: ANTIVERT PO PRN (21:28)
[2018-07-30] MEDS ORDERED: ZOFRAN IV PRN (21:29)
[2018-07-30] MEDS: DUONEB (A & A) INH SCH (22:00)
--- NOTE | 2018-07-30 22:52 | HISTORY AND PHYSICAL ---
CHIEF COMPLAINT: Weakness and altered mental status. HISTORY OF PRESENT ILLNESS: This is a 77-year-old female who was seen by her primary care provider, Emma Mcdonald. She was recently admitted to the hospital on 06/21/2018 with ischemic colitis. She was discharged from here to rehab at [facility]. I believe she has been home for 2 days, per the daughter at the bedside. Family reports in rehab she lost around 30 pounds and got progressively weaker over the stay. They carried her home thinking that maybe her symptoms would improve. She was altered from the time that she left the hospital, per the daughter. She was having foul-smelling urine and she was ultimately treated for a urinary tract infection with Levaquin at the [facility]. On initial workup in the ER, the patient does appear to have a urinary tract infection as well as a right lower lobe infiltrate. She will be admitted for further evaluation and treatment. PAST MEDICAL HISTORY: 1. Diabetes mellitus type 2, diet controlled. 2. Hyperlipidemia. 3. Hypertension. 4. History of osteomyelitis of the 2nd toe. 5. 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 6. Ischemic colitis. 7. Neurogenic bladder with retention. PREVIOUS SURGICAL HISTORY: 1. Right hip fracture. 2. Right 2nd toe amputation. ALLERGIES: Bactrim. SOCIAL HISTORY: for 50 years. 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 No tobacco, alcohol or illicit drugs. She lives in [place]. FAMILY HISTORY: Father from complications of dementia. Mother from lung cancer at 81. HOME MEDICATIONS: 1. Horizant 600 mg p.o. q.p.m. 2. Meclizine 12.5 mg p.o. t.i.d. p.r.n. 3. Tramadol extended release 300 mg p.o. at bedtime. 4. Icar-C 1 p.o. b.i.d. 5. Methocarbamol 500 mg p.o. b.i.d. 6. Centrum Silver 1 p.o. daily. 7. Levothyroxine 50 mcg p.o. q.a.m. REVIEW OF SYSTEMS: Fourteen point review of systems could not be conducted with the patient as she is altered. Has no complaint, however. She is oriented to person, place, time, disoriented to situation. Pertinent positives for admission are listed above in the HPI. PHYSICAL EXAMINATION: VITAL SIGNS: Pulse is 85, respirations 15, blood pressure 120/72, oxygen saturation 98%. Patient is afebrile. GENERAL: Confused and lethargic 77-year-old female, oriented to person, place and time, disoriented to situation, lying in the ER stretcher. She is in no acute distress. HEENT: Head is atraumatic, normocephalic. Pupils equal, round, reactive to light. Extraocular eye movement is intact. Sclera is anicteric. Conjunctiva is pink. Oral mucosa is dry. NECK: Supple. No JVD. No thyromegaly. Trachea is midline. No cervical lymphadenopathy. CARDIAC: S1, S2 appreciated. No murmurs, gallops, rubs. LUNGS: Right-sided crepitations noted at base, otherwise clear to auscultation. No wheezing. Symmetrical rise and fall with respirations. ABDOMEN: Soft, nondistended, nontender. Bowel sounds present all 4 quadrants, normoactive. No pulsatile mass. No organomegaly. EXTREMITIES: No clubbing, cyanosis. One to two-plus pitting edema mid calf to foot. One-plus pedal pulses. SKIN: Warm and dry. Two small stage 1-2 decubitus ulcers above her sacrum. The largest is around 3 x 3 cm with erythema. DIAGNOSTIC DATA: Chest x-ray shows small bibasilar infiltrates and atelectasis. LABORATORY DATA: WBC 19.55. Hemoglobin 13. Hematocrit 39.1. Platelet count 505. Coagulation studies within normal limits. ABG: pH 7.49, pCO2 of 36, pO2 of 66, bicarbonate 28. This was on room air. Sodium 130. Potassium 4.8. Chloride 92. Carbon dioxide 26. BUN 25. Creatinine 0.7. Urine: Leukocyte esterase positive, positive for hematuria, too numerous to count WBCs, 4-plus bacteria. ASSESSMENT AND PLAN: 1. Hospital-acquired pneumonia. Patient has been at rehab. We will treat with vancomycin to cover for MRSA, Zosyn for broad spectrum coverage. Sputum cultures and blood cultures will be obtained. Theresa. 2. Urinary tract infection. See antibiotic selection above. Murphy catheter has been ordered to be replaced. 3. Fluid volume depletion. Patient received bolusing in the emergency room. We will continue fluid hydration and monitor fluid volume status. 4. Hypothyroidism. Continue Synthroid. 5. Recent ischemic colitis. We will defer to Dr. Mcdonald need for reimaging of abdomen or possible consultation. Further recommendations per patient clinical course. Dictated by JESSIKA Jarquin for Greyson Haji MD cc: JESSIKA Jarquin MD Agree with the above. the following is my own, face to face evaluation. Patient with ongoing poor PO intake, weight loss, and confusion since bout of ischemic colitis approx 1 month ago. UA suggestive of UTI. CXR suggestive of pneumonia. patient with recent hospitalization, stay in rehab, and was on extended course of levaquin recently so will treat with vanc and zosyn. cultures pending. abdomen nontender. bowel sounds surprisingly normal. MTDD
[2018-07-30] MEDS ORDERED: GRALISE PO SCH ×2 (23:19→23:30)
[2018-07-30] MEDS: HUMALOG SUBQ SCH (23:24)
[2018-07-30] MEDS: GRALISE PO SCH (23:39)
[2018-07-30] MEDS: ULTRAM ER PO SCH (23:39)
[2018-07-30] MEDS: NS 1,000 ML IV SCH (23:40)
[2018-07-30] MEDS: ZOSYN 3.375 GM in NS 50 ML IV SCH (23:40)
[2018-07-30] MEDS: LOVENOX SUBQ SCH (23:41)
[2018-07-31] MEDS: HUMALOG SUBQ SCH ×6 (00:45→21:24)
[2018-07-31] MEDS: DUONEB (A & A) INH SCH ×4 (03:57→21:24)
[2018-07-31] MEDS: ZOSYN 3.375 GM in NS 50 ML IV SCH ×4 (04:05→20:47)
[2018-07-31 05:31] LABS: URINE SOURCE CATH
[2018-07-31 05:37] LABS: BILIRUBIN URINE NEGATIVE (NEGATIVE); BLOOD URINE TRACE (NEGATIVE); COLOR YELLOW; GLUCOSE URINE NEGATIVE (NEGATIVE); KETONE URINE NEGATIVE (NEGATIVE); LEUKOCYTES URINE MODERATE (NEGATIVE); NITRITE URINE NEGATIVE (NEGATIVE); PROTEIN URINE TRACE mg/dL (NEGATIVE); SP GRAVITY URINE 1.017; TURBIDITY URINE HAZY (CLEAR); UROBILINOGEN URINE NORMAL (NORMAL)
[2018-07-31 05:39] LABS: UR EPITHELIAL CELLS >10 /HPF (<10); URINE BACTERIA NEGATIVE /HPF; URINE RBC <10 /HPF (<10); URINE WBC <10 /HPF (<10)
[2018-07-31] MEDS ORDERED: HUMALOG SUBQ SCH (07:00)
[2018-07-31 07:24] LABS: BASO# 0.03 X1000 (0.0-0.2); BASO% 0.3 % (0.0-0.8); EOS# 0.21 X1000 (0.0-0.7); EOS% 1.8 % (0.0-10.0); HEMATOCRIT 36.7 % (37.0-47.0); HEMOGLOBIN 11.9 g/dL (12.0-16.0); IMM GRAN# 0.11 X1000 (0.0-0.04); IMM GRAN% 0.9 % (0.0-0.5); LYMPH# 1.75 X1000 (1.2-3.4); LYMPH% 14.7 % (20.5-51.1); MCH 28.8 PG (27-31); MCHC 32.4 g/dL (33-37); MCV 88.9 FL (81-99); MONO# 1.17 X1000 (0.11-0.59); MONO% 9.8 % (1.7-9.3); MPV 9.6 FL (7.4-10.4); NEUT# 8.61 X1000 (1.4-6.5); NEUT% 72.5 % (42.2-75.2); PLT 456 X1000 (130-400); RBC 4.13 XMIL (4.2-5.4); RDW 17.6 % (11.5-14.5); WBC 11.88 X1000 (4.8-10.8)
[2018-07-31 07:44] LABS: AGAP 9; BUN 18 mg/dL (8-22); CALCIUM 8.1 mg/dL (8.8-10.2); CHLORIDE 99 mmol/L (98-107); COSMO 276; CREATININE 0.5 mg/dL (0.5-0.9); ESTIMATED GFR > 60; GLUCOSE 142 mg/dL (70-104); POTASSIUM 4.2 mmol/L (3.5-5.1); SODIUM 136 mmol/L (136-145); TCO2 28 mmol/L (25-35)
[2018-07-31] MEDS ORDERED: ULTRAM ER PO SCH (09:00)
[2018-07-31] MEDS: SYNTHROID PO SCH (09:58)
[2018-07-31] MEDS: ULTRAM ER PO SCH (09:58)
[2018-07-31] MEDS: NS 1,000 ML IV SCH (09:58)
[2018-07-31] MEDS: ICAR-C PO SCH ×2 (09:58→20:44)
[2018-07-31] MEDS: ROBAXIN PO SCH ×2 (09:58→20:44)
[2018-07-31] MEDS: CENTRUM SILVER PO SCH (09:58)
--- NOTE | 2018-07-31 14:20 | PROGRESS NOTE ---
DATE: 07/31/2018 SUBJECTIVE: Interval history was reviewed. This 77-year-old white female was discharged from this hospital on 07/05 to rehab at [facility]. The family is at bedside. She just came home and the patient still has a Murphy catheter and continues dwindling of activities of daily living, not eating well. From the previous admission, she had ischemic colitis. Upon questioning, patient has lack of appetite, not eating well. No diarrhea. No abdominal pain. Murphy was placed. PAST MEDICAL HISTORY: Reviewed. PAST SURGICAL HISTORY: Reviewed. MEDICATIONS: Reviewed. ALLERGIES: Bactrim and morphine. PHYSICAL EXAMINATION: Vital signs: Temperature is 97.7 degrees, pulse 94, blood pressure 102/65, 93% on room air. HEENT: Within normal limits. Neck: Supple. No lymphadenopathy. No goiter. Chest: Bilateral air entry. No signs of pneumonitis. Heart: Sounds are regular. Abdomen: Belly is soft, nontender. : Murphy was placed. Extremities: No peripheral edema, cyanosis. Neurologic: No obvious neurological deficits. INVESTIGATIONS: White cell count came down to 11, hematocrit 36, platelets 456,000. ABG on room air, pH is 7.49, pCO2 36, PO2 66. SMA: Sodium 136, potassium 4.2, BUN 18, creatinine 0.5, glucose 142, A1c 6.0, calcium 8.1, alkaline phosphatase 209, total protein 5.8, albumin 2.4. Urinalysis is clear. Microbiology, blood cultures and urine cultures are pending. Chest x-ray bibasilar infiltrates, mostly on the right, hemidiaphragm elevated. ASSESSMENT AND PLAN: 1. Possible pneumonia on the right side, elevated white cell count. Currently patient is on IV Zosyn. 2. Chronic pain. Tramadol, Robaxin, gabapentin. 3. Hypothyroidism. On Synthroid. 4. Ischemic colitis is better. 5. Moderate protein calorie malnutrition. Dietary consult. IV Clinimix and Glucerna. 6. Type 2 diabetes, diet control. Incentive spirometry, physical therapy. 7. Neurogenic bladder. On Murphy catheter. 8. Deep venous thrombosis prophylaxis with Lovenox. 9. Poor appetite and she has a history of gallstones, asymptomatic. We need to look into ruling out gallbladder disease. Discussed the plan of care with family. They want to go for rehab. LEVEL OF DOCUMENTATION: 35 minutes. cc: Bradley Mcdonald MD
[2018-07-31] MEDS: CLINIMIX E 4.25%-5% SOLUTION 1,000 ML IV SCH (14:27)
[2018-07-31] MEDS: GRALISE PO SCH (20:44)
[2018-07-31] MEDS: LOVENOX SUBQ SCH (20:47)
[2018-07-31] MEDS ORDERED: GABAPENTIN ENACARBIL 600 MG PO SCH (21:00)
[2018-07-31] MEDS: TYLENOL PO PRN (21:35)
[2018-08-01] MEDS: HUMALOG SUBQ SCH ×6 (02:28→22:27)
[2018-08-01] MEDS: DUONEB (A & A) INH SCH ×4 (03:49→21:14)
[2018-08-01] MEDS: ZOSYN 3.375 GM in NS 50 ML IV SCH ×5 (04:42→22:27)
[2018-08-01] MEDS: CLINIMIX E 4.25%-5% SOLUTION 1,000 ML IV SCH ×3 (04:42→23:15)
[2018-08-01] MEDS: SYNTHROID PO SCH (06:12)
[2018-08-01] MEDS: ICAR-C PO SCH ×2 (08:31→22:26)
[2018-08-01] MEDS: ROBAXIN PO SCH ×2 (08:32→22:27)
[2018-08-01] MEDS: CENTRUM SILVER PO SCH (08:32)
[2018-08-01] MEDS: ULTRAM ER PO SCH (08:32)
--- NOTE | 2018-08-01 14:27 | PROGRESS NOTE ---
DATE: 08/01/2018 SUBJECTIVE: Ms. Mendoza has chronic pain. She has pneumonia, has diabetes. She is on IV piperacillin. Has been having diarrhea. Clostridium difficile was negative. Her hemoglobin is 11.9, hematocrit 36.7, white count is 11.88. The pneumonia is on the right side. She has some pulmonary congestion. We are going to continue the current management. -7 cc: MD Bradley Mcarthur MD
[2018-08-01] MEDS: GRALISE PO SCH (22:26)
[2018-08-01] MEDS: LOVENOX SUBQ SCH (22:27)
[2018-08-02] MEDS: HUMALOG SUBQ SCH ×6 (02:22→21:22)
[2018-08-02] MEDS: ZOSYN 3.375 GM in NS 50 ML IV SCH ×4 (03:40→22:09)
[2018-08-02] MEDS: DUONEB (A & A) INH SCH ×4 (03:50→21:38)
[2018-08-02] MEDS: CLINIMIX E 4.25%-5% SOLUTION 1,000 ML IV SCH ×4 (07:38→21:23)
[2018-08-02] MEDS: SYNTHROID PO SCH (07:39)
--- NOTE | 2018-08-02 07:44 | EKG Report ---
Test Performed on : 07/30/2018 7:37:22 PM Test Reason : tachycardia Blood Pressure : / mmHG Vent. Rate : 109 BPM Atrial Rate : 109 BPM P-R Int : 132 ms QRS Dur : 100 ms QT Int : 360 ms P-R-T Axes : 027 -48 067 degrees QTc Int : 484 ms Sinus tachycardia. Left axis deviation Low voltage QRS Inferior infarct , age undetermined Possible Anterolateral infarct , age undetermined Abnormal ECG When compared with ECG of 02-JUL-2018 06:31, Significant changes have occurred Unconfirmed Result
[2018-08-02] MEDS: CENTRUM SILVER PO SCH (10:53)
[2018-08-02] MEDS: ULTRAM ER PO SCH (10:54)
[2018-08-02] MEDS: ICAR-C PO SCH ×2 (10:57→21:22)
[2018-08-02] MEDS: ROBAXIN PO SCH ×2 (10:58→21:22)
[2018-08-02] MEDS: TYLENOL PO PRN ×2 (18:00→22:15)
[2018-08-02] MEDS: LOVENOX SUBQ SCH (21:24)
--- NOTE | 2018-08-02 21:25 | PROGRESS NOTE ---
DATE: 08/02/2018 SUBJECT: The patient is still in the bedridden. Murphy catheter was placed. The patient states she is eating well. Internal jugular vein placed on the right side. EXAMINATION: Temperature is 98 degrees, pulse 95, blood pressure stable.HEENT: Within normal limits. Neck: Supple. Chest: No signs of pneumonitis. Heart: Sounds are regular. Belly: Soft, nontender. Murphy was placed. INVESTIGATIONS: None reported. Microbiology. Urine cultures basically gram-positive cocci, 10,000 to 20,000 MRSA not significant. Blood cultures were negative. ASSESSMENT AND PLAN: 1. Right lower lobe pneumonia possible and clinically is better and patient has been on intravenous Zosyn. 2. Not eating well. Continue IV Clinimix. 3. Deep vein thrombosis prophylaxis with Lovenox. Neurogenic bladder on Murphy catheter. 4. Methicillin-resistant Staphylococcus aureus most likely contaminant, not true infection due to chronic indwelling catheter. 5. Ischemic colitis stable, hypothyroidism on Synthroid, type 2 diabetes diet controlled, chronic pain on Robaxin and tramadol and repeat the labs in the morning which includes CBC, SMA 7, chest x-ray and out of the bed with physical therapy and discussed the family possible rehab in different place. Patrol Deputy Sheriff consult LEVEL OF DOCUMENTATION: 25 minutes. cc: Bradely Mcdonald MD
[2018-08-03] MEDS: HUMALOG SUBQ SCH ×7 (01:23→21:07)
[2018-08-03] MEDS: ZOSYN 3.375 GM in NS 50 ML IV SCH ×4 (03:07→21:05)
[2018-08-03] MEDS: DUONEB (A & A) INH SCH ×4 (03:34→21:50)
[2018-08-03] MEDS: SYNTHROID PO SCH (05:02)
[2018-08-03] MEDS: GRALISE PO SCH ×2 (05:15→23:13)
[2018-08-03 08:00] LABS: BASO# 0.06 X1000 (0.0-0.2); BASO% 0.6 % (0.0-0.8); EOS# 0.26 X1000 (0.0-0.7); EOS% 2.6 % (0.0-10.0); HEMOGLOBIN 10.6 g/dL (12.0-16.0); LYMPH# 1.64 X1000 (1.2-3.4); LYMPH% 16.4 % (20.5-51.1); MCH 28.8 PG (27-31); MCHC 32.1 g/dL (33-37); MCV 89.7 FL (81-99); MONO# 1.04 X1000 (0.11-0.59); MONO% 10.4 % (1.7-9.3); MPV 9.4 FL (7.4-10.4); NEUT# 6.81 X1000 (1.4-6.5); PLT 528 X1000 (130-400); RBC 3.68 XMIL (4.2-5.4); RDW 17.9 % (11.5-14.5); WBC 10.01 X1000 (4.8-10.8)
[2018-08-03 08:25] LABS: AGAP 6; BUN 17 mg/dL (8-22); CALCIUM 7.9 mg/dL (8.8-10.2); CHLORIDE 97 mmol/L (98-107); COSMO 272; CREATININE 0.4 mg/dL (0.5-0.9); ESTIMATED GFR > 60; GLUCOSE 173 mg/dL (70-104); POTASSIUM 4.5 mmol/L (3.5-5.1); SODIUM 133 mmol/L (136-145); TCO2 30 mmol/L (25-35)
--- NOTE | 2018-08-03 10:21 | Diag Imaging Result Doc PS360 ---
EXAM: CHEST-2 VIEWS HISTORY: hypoxia TECHNIQUE: Chest two views COMPARISON: 07/30/2018 FINDINGS: Small right basilar infiltrates and atelectasis. The lungs are better expanded on the current exam. The heart remains mildly prominent. No pulmonary edema. There are scattered granuloma. No effusions. IMPRESSION: Slight interval improvement. Electronically signed by Ruddy Samuel 08/03/2018 10:19 AM
[2018-08-03] MEDS: CLINIMIX E 4.25%-5% SOLUTION 1,000 ML IV SCH ×2 (10:52→23:13)
[2018-08-03] MEDS: ULTRAM ER PO SCH (10:53)
[2018-08-03] MEDS: CENTRUM SILVER PO SCH (10:53)
[2018-08-03] MEDS: ICAR-C PO SCH ×2 (10:53→21:07)
[2018-08-03] MEDS: ROBAXIN PO SCH ×2 (10:53→21:07)
--- NOTE | 2018-08-03 19:35 | PROGRESS NOTE ---
DATE: 08/03/2018 SUBJECTIVE: The patient is doing better and eating better. No complaints. OBJECTIVE: Vital Signs: Temperature 98.7 degrees, pulse 99, and blood pressure 113/73. HEENT: Within normal limits. Chest: Clear. Heart: Sounds are regular. Abdomen: Belly is soft and nontender. Good bowel sounds. No neurological deficits. INVESTIGATIONS: CBC: White cell count 10, hematocrit 33, and platelets 528,000. SMA 7 is normal. Blood cultures are negative. Repeat chest x-ray today with improvement of right lower lobe infiltrate. ASSESSMENT AND PLAN: 1. Right lower lobe pneumonia. Continue on incentive spirometry. Out of the bed and antibiotics. 2. Neurogenic bladder, stable. 3. Out of the bed with PT. 4. Rehab placement and continue present treatment. Ischemic colitis is stable. Senior Director consult for rehab placement LEVEL OF DOCUMENTATION: 25 minutes. cc: Bradley Mcdonald MD
[2018-08-03] MEDS: LOVENOX SUBQ SCH (23:31)
[2018-08-04] MEDS: HUMALOG SUBQ SCH ×7 (01:01→21:30)
[2018-08-04] MEDS: ZOSYN 3.375 GM in NS 50 ML IV SCH ×4 (03:05→20:46)
[2018-08-04] MEDS: DUONEB (A & A) INH SCH ×4 (03:10→21:20)
[2018-08-04] MEDS: SYNTHROID PO SCH (05:05)
[2018-08-04] MEDS: ULTRAM ER PO SCH (08:24)
[2018-08-04] MEDS: ICAR-C PO SCH ×2 (08:25→20:42)
[2018-08-04] MEDS: ROBAXIN PO SCH ×2 (08:25→20:42)
[2018-08-04] MEDS: CENTRUM SILVER PO SCH (08:25)
[2018-08-04] MEDS: CLINIMIX E 4.25%-5% SOLUTION 1,000 ML IV SCH ×2 (08:26→15:21)
[2018-08-04] MEDS: LOVENOX SUBQ SCH (20:42)
[2018-08-04] MEDS: GRALISE PO SCH (20:42)
--- NOTE | 2018-08-04 21:55 | PROGRESS NOTE ---
DATE: 08/04/2018 SUBJECTIVE: The patient's family at bedside. The patient is willing to go for rehab in [facility]. Eating better. No confusion noted. X-ray still has some right lower lobe pneumonia, slowly improving. EXAMINATION: Vital signs: Temperature is 97 degrees. Vitals are stable. HEENT: Within normal limits. Neck: Supple. Chest: Decreased crackles on the right side. Heart: Sounds are regular. Abdomen: Belly is soft, nontender. Good bowel sounds. No obvious deficits. ASSESSMENT AND PLAN: 1. Right lower lobe pneumonia, improving. Continue IV antibiotics. 2. Deep venous thrombosis prophylaxis with Lovenox. 3. Improve the nutrition status. 4. Neurogenic bladder, stable. 5. Colitis is stable. 6. Deconditioning. Will discharge to rehab in the morning. LEVEL OF DOCUMENTATION: 25 minutes. cc: Bradley Mcdonald MD
--- NOTE | 2018-08-04 22:19 | DISCHARGE SUMMARY ---
ADMISSION DATE: 07/30/2018 DISCHARGE DATE: 08/05/2018 DISCHARGING DIAGNOSES: 1. Right lower lobe pneumonia, better. 2. Ischemic colitis on the left side, better. 3. History of gallstones, stable. 4. Type 2 diabetes, diet controlled. 5. Bladder retention due to neurogenic bladder from combination of colitis and Robaxin, with chronic indwelling Murphy catheter. 6. Deconditioning. 7. Chronic pain due to right hip fracture and multiple deformities of the foot. BRIEF HISTORY: Please see the H and P that was done on 07/30/2018. In brief, she is a 77-year- old white female who has been in [facility], just released from the rehab, came in the hospital with altered mental status, deconditioning, low-grade fever, leukocytosis. Chest x- ray showed right lower lobe pneumonia. HOSPITAL COURSE: The patient was started on IV Clinimix, IV antibiotics with Zosyn. She continues to be bedridden. She needs some assistance for ambulation. She has indwelling Murphy catheter. Urine cultures grew MRSA, not significant, most likely contaminant. The patient is slowly getting better. Followup x-rays improving. Continue IV antibiotics. She needs aggressive physical therapy. The patient is being transferred to [facility]. LABORATORIES: CBC: White cell count 10, hematocrit 33, platelets 528,000. Sodium 135, potassium 4.5, BUN 17, creatinine 0.4. Sputum cultures pending. Urine cultures: Nonspecific MRSA. Blood cultures were negative. DISCHARGE INSTRUCTIONS: Gabapentin 600 every p.m. Meclizine as needed. Tramadol ER 300 daily. Icar-C Plus 1 tablet p.o. b.i.d. Robaxin 500 p.o. b.i.d. Multivitamin 1 tablet daily. Synthroid 50 mcg daily. Glucerna 1 can t.i.d. Bladder voiding trial for neurogenic bladder. Continue IV antibiotics, Levaquin 500 daily for 7 to 10 days. Transferred to the rehab for convalescence. cc: Bradley Mcdonald MD
[2018-08-04] MEDS ORDERED: NS 250 ML ONE (22:51)
[2018-08-05] MEDS: CLINIMIX E 4.25%-5% SOLUTION 1,000 ML IV SCH (01:57)
[2018-08-05] MEDS: HUMALOG SUBQ SCH ×3 (01:58→10:00)
[2018-08-05] MEDS: DUONEB (A & A) INH SCH ×2 (03:25→09:40)
[2018-08-05] MEDS: ZOSYN 3.375 GM in NS 50 ML IV SCH ×2 (03:47→09:55)
[2018-08-05] MEDS: ULTRAM ER PO SCH (09:50)
[2018-08-05] MEDS: CENTRUM SILVER PO SCH (09:51)
[2018-08-05] MEDS: ICAR-C PO SCH (09:51)
[2018-08-05] MEDS: ROBAXIN PO SCH (09:51)
[2018-08-05 11:39] VITALS: BP 114/67
== END 2018-08-05 13:30 | DRG 194 ==
LOC: SUPCPDRO → ED 17:18 → SUATTDRO 21:54 → 3N 21:54
PROVIDERS: ADMIT Internal Medicine; ATTEND Internal Medicine
CPT/HCPCS: 71010; 71020; 71045; 71046; 80048; 80053; 81001; 82550; 82805; 82948; 83036; 83605; 84484; 85025; 85610; 85730; 87040; 87070; 87077; 87088; 87186; 87205; 93005; 94640; 94761; 94799; 96365; 97110; 97162; 97530; 99285; A9270; J0696; J1650; J1815; J2543; J7030; J7050; XXXXX

== ENCOUNTER 2018-08-24 17:10 | Inpatient (IN) ==
[2018-08-24] MEDS ORDERED: HEPARIN 25,000 UNITS/D5W 25,000 UNIT/250 ML IV.SOLN IV SCH (19:00)
--- NOTE | 2018-08-24 20:14 | HISTORY AND PHYSICAL ---
CHIEF COMPLAINT: Right leg swelling since 2 days ago. HISTORY OF PRESENT ILLNESS: She is a 77-year-old white female who basically came to my office today with swelling of right leg since 2 days ago. She was admitted several times for pneumonia, ischemic colitis, deconditioning. The patient was brought in by the family. Right leg is swelling more than the left side. She has extensive DVT from the right common femoral vein all the way down with a Dawkins cyst, 4 cm noted. Basically admitted to the hospital with right-sided DVT. No chest pain or shortness of breath. As a result, rehospitalization was warranted. PAST MEDICAL HISTORY: History of gallstones, diabetes diet control, hyperlipidemia off pills, hypertension off medication, ischemic colitis, neurogenic bladder, history of osteomyelitis on the right 2nd toe, multiple feet deformities, stage I pressure ulcer on the sacral area, hypothyroidism, depression, and anxiety. PAST SURGICAL HISTORY: Right hip fracture with intramedullary nailing, right 3rd toe amputation. MEDICATIONS: Tramadol ER 300 daily, Icar C Plus 1 tablet p.o. b.i.d., Robaxin 500 p.o. b.i.d., Centrum Silver 1 tablet daily, Synthroid 50 mcg daily, tramadol ER 300 daily, Effexor 37.5 daily, Horizant 600 p.o. daily. ALLERGIES: Reported to Bactrim, morphine. 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 No smoking. No alcohol. FAMILY HISTORY: Father of complications of dementia. Mom of lung cancer. REVIEW OF SYSTEMS: HEENT: No headache. No vision problem. No earache. No sore throat. Neck: No goiter. No lymphadenopathy. No bruit. Cardiopulmonary: No chest pain, cough, shortness of breath, wheezing. GI: No nausea, vomiting, abdominal pain. : No history of hesitancy, frequency, dysuria, and basically on the Murphy catheter with neurogenic bladder. Extremities: Swelling of right leg. Neurologic: No neurological symptoms or weakness. PHYSICAL EXAMINATION: VITAL SIGNS: Temperature 98 degrees, tachycardic, blood pressure is stable, 5 feet 7 inches, 131 pounds, 93% on room air. HEENT: Atraumatic, normocephalic. Pupils equal, react to light. TMs are normal. Nose and throat within normal limits. NECK: Supple. No lymphadenopathy. No goiter. CHEST: Bilateral air entry. HEART: Sounds are regular. ABDOMEN: Belly is soft, obese, nontender. GENITOURINARY: Murphy was placed. EXTREMITIES: Extensive right leg swelling noted. Positive Homans' sign. NEUROLOGIC: No neurological deficits. INVESTIGATIONS: Pending. Outpatient Doppler revealed extensive DVT in the right leg. ASSESSMENT AND PLAN: 1. A 77-year-old white female admitted to the hospital with right leg deep venous thrombosis due to deconditioning. Plan is hypercoagulable workup and IV heparin. 2. Neurogenic bladder, on Murphy catheter. Watch for symptoms and signs of infection. 3. Right-sided lower lobe pneumonia. Follow up on chest x-ray. 4. Hypothyroidism, on Synthroid. 5. Chronic pain, on tramadol and Neurontin. 6. Reconcile home medications and GI prophylaxis with IV Pepcid and follow up. cc: Bradley Mcdonald MD MTDD
[2018-08-24 20:25] LABS: BASO# 0.04 X1000 (0.0-0.2); BASO% 0.3 % (0.0-0.8); EOS# 0.17 X1000 (0.0-0.7); EOS% 1.4 % (0.0-10.0); HEMATOCRIT 41.9 % (37.0-47.0); HEMOGLOBIN 13.6 g/dL (12.0-16.0); IMM GRAN# 0.16 X1000 (0.0-0.04); IMM GRAN% 1.3 % (0.0-0.5); LYMPH# 1.78 X1000 (1.2-3.4); LYMPH% 14.8 % (20.5-51.1); MCH 29.2 PG (27-31); MCHC 32.5 g/dL (33-37); MCV 90.1 FL (81-99); MONO# 1.23 X1000 (0.11-0.59); MONO% 10.2 % (1.7-9.3); MPV 9.7 FL (7.4-10.4); NEUT# 8.63 X1000 (1.4-6.5); PLT 568 X1000 (130-400); RBC 4.65 XMIL (4.2-5.4); RDW 16.8 % (11.5-14.5); WBC 12.01 X1000 (4.8-10.8)
--- NOTE | 2018-08-24 20:39 | Diag Imaging Result Doc PS360 ---
EXAM: CHEST-2 VIEWS INDICATION: SOB TECHNIQUE: 2 views COMPARISON: 08/03/2018 FINDINGS: There is evidence of prior granulomatous disease, stable. The opacity at the right lower lung zone seen on the previous study is approximately stable. This probably represents fibrotic change and atelectasis. Mild residual infiltrate is possible, however. No new consolidation is identified. There is no discrete pleural fluid collection or pneumothorax. The cardiac silhouette is unremarkable. IMPRESSION: Mild opacity at the right lower lung zone as described that is approximately stable. Electronically signed by Sudheer Randall 08/24/2018 8:36 PM
[2018-08-24 20:49] LABS: AGAP 8; ALB/GLOB RATIO 0.7; ALBUMIN 2.6 g/dL (3.5-5.0); ALKALINE PHOSPHATASE 179 U/L (32-104); BUN 17 mg/dL (8-22); CALCIUM 9.3 mg/dL (8.8-10.2); CHLORIDE 93 mmol/L (98-107); COSMO 266; CREATININE 0.6 mg/dL (0.5-0.9); ESTIMATED GFR > 60; GLUCOSE 139 mg/dL (70-104); GOT 25 U/L (10-30); GPT 9 U/L (10-36); POTASSIUM 4.5 mmol/L (3.5-5.1); SODIUM 131 mmol/L (136-145); TCO2 30 mmol/L (25-35); TOTAL BILIRUBIN 0.35 mg/dL (0.20-1.00); TOTAL PROTEIN 6.3 g/dL (6.3-8.3)
[2018-08-24] MEDS ORDERED: HEPARIN IV ONE (20:55)
[2018-08-24] MEDS ORDERED: HALDOL IM ONE (22:31)
[2018-08-24] MEDS: ULTRAM ER PO SCH (23:01)
[2018-08-24] MEDS: ICAR-C PO SCH (23:01)
[2018-08-24] MEDS: ROBAXIN PO SCH (23:01)
[2018-08-24] MEDS: GABAPENTIN ENACARBIL 600 MG PO SCH (23:02)
[2018-08-24] MEDS: MYCOSTATIN POWDER TOP SCH (23:03)
[2018-08-24] MEDS: PEPCID IV SCH (23:33)
[2018-08-24] MEDS: SODIUM CHLORIDE 0.9% INJ SCH (23:33)
[2018-08-25 05:49] LABS: BASO# 0.08 X1000 (0.0-0.2); EOS# 0.27 X1000 (0.0-0.7); EOS% 3.3 % (0.0-10.0); HEMATOCRIT 39.7 % (37.0-47.0); HEMOGLOBIN 12.9 g/dL (12.0-16.0); LYMPH# 2.34 X1000 (1.2-3.4); LYMPH% 28.4 % (20.5-51.1); MCH 29.8 PG (27-31); MCHC 32.5 g/dL (33-37); MCV 91.7 FL (81-99); MONO# 0.94 X1000 (0.11-0.59); MONO% 11.4 % (1.7-9.3); MPV 9.3 FL (7.4-10.4); NEUT% 55.9 % (42.2-75.2); PLT 498 X1000 (130-400); RBC 4.33 XMIL (4.2-5.4); RDW 16.9 % (11.5-14.5); WBC 8.23 X1000 (4.8-10.8)
[2018-08-25] MEDS ORDERED: HEPARIN IV ONE (06:23)
[2018-08-25] MEDS: HEPARIN 25,000 UNITS/D5W 25,000 UNIT/250 ML IV.SOLN IV SCH (06:47)
[2018-08-25] MEDS: SYNTHROID PO SCH (06:49)
[2018-08-25] MEDS ORDERED: ULTRAM ER PO SCH (09:00)
[2018-08-25] MEDS: PEPCID IV SCH (10:13)
[2018-08-25] MEDS: SODIUM CHLORIDE 0.9% INJ SCH (10:13)
[2018-08-25] MEDS: ICAR-C PO SCH ×2 (10:14→20:19)
[2018-08-25] MEDS: ROBAXIN PO SCH ×2 (10:14→20:19)
[2018-08-25] MEDS: CENTRUM SILVER PO SCH (10:14)
[2018-08-25] MEDS: EFFEXOR PO SCH (10:14)
[2018-08-25] MEDS: MYCOSTATIN POWDER TOP SCH ×2 (10:15→20:21)
[2018-08-25] MEDS: PEPCID PO SCH (14:13)
[2018-08-25] MEDS: ULTRAM ER PO SCH (18:47)
[2018-08-25] MEDS: GABAPENTIN ENACARBIL 600 MG PO SCH (18:50)
[2018-08-25] MEDS: ZOSYN 3.375 GM in NS 50 ML IV SCH (20:18)
[2018-08-25] MEDS ORDERED: CALMOSEPTINE OINTMENT TOP PRN (21:01)
--- NOTE | 2018-08-25 22:14 | PROGRESS NOTE ---
DATE: 08/25/2018 SUBJECTIVE: The patient is a little bit confused. No family is around. PHYSICAL EXAMINATION: Vital signs: Temperature is 98 degrees, pulse is tachycardic. Vitals are stable. General: Patient is not in respiratory distress. Lungs: Bilateral air entry. Heart: Sounds are regular. Abdomen: Belly is soft, nontender. Genitourinary: Murphy was placed. INVESTIGATIONS: CBC: White cell count 8.2, hematocrit 39, platelets 498,000. His prealbumin 8.3. ASSESSMENT AND PLAN: 1. Extensive deep vein thrombosis in the right leg. Thrombophilia workup was pending. 2. Urinary tract infection and right lower lobe pneumonia. Started on IV antibiotics with Zosyn. 3. Out of the bed with physical therapy. 4. Protein-calorie malnutrition, 5. Deconditioning. 6. Encourage enteral feeding. 7. We will also ask the dietary consult. 8. Ischemic colitis, stable. 9. Neurogenic bladder on Murphy catheter. 10. Depression on Effexor. 11. History of tenia infection in the groin on nystatin. 12. Hypothyroidism on Synthroid. 13. Chronic pain on Neurontin and tramadol and Robaxin. 14. We will initiate palliative care consult. LEVEL OF DOCUMENTATION: 25 minutes. cc: Bradley Mcdonald MD [facility]
[2018-08-26] MEDS: ZOSYN 3.375 GM in NS 50 ML IV SCH ×4 (03:53→21:32)
[2018-08-26] MEDS: HEPARIN 25,000 UNITS/D5W 25,000 UNIT/250 ML IV.SOLN IV SCH ×2 (05:00→09:11)
[2018-08-26 06:51] LABS: BASO% 1.2 % (0.0-0.8); EOS# 0.22 X1000 (0.0-0.7); EOS% 2.6 % (0.0-10.0); HEMATOCRIT 38.5 % (37.0-47.0); HEMOGLOBIN 12.6 g/dL (12.0-16.0); IMM GRAN# 0.08 X1000 (0.0-0.04); LYMPH# 2.43 X1000 (1.2-3.4); LYMPH% 29.2 % (20.5-51.1); MCHC 32.7 g/dL (33-37); MCV 91.7 FL (81-99); MONO# 1.06 X1000 (0.11-0.59); MONO% 12.7 % (1.7-9.3); MPV 9.7 FL (7.4-10.4); NEUT# 4.43 X1000 (1.4-6.5); NEUT% 53.3 % (42.2-75.2); PLT 468 X1000 (130-400); RDW 16.9 % (11.5-14.5); WBC 8.32 X1000 (4.8-10.8)
[2018-08-26] MEDS: SYNTHROID PO SCH (07:34)
[2018-08-26] MEDS ORDERED: HEPARIN IV ONE (08:45)
[2018-08-26] MEDS: CENTRUM SILVER PO SCH (09:07)
[2018-08-26] MEDS: PEPCID PO SCH (09:09)
[2018-08-26] MEDS: ICAR-C PO SCH ×2 (09:10→21:32)
[2018-08-26] MEDS: MYCOSTATIN POWDER TOP SCH ×2 (09:10→21:33)
[2018-08-26] MEDS: ROBAXIN PO SCH ×2 (09:10→21:32)
[2018-08-26] MEDS: EFFEXOR PO SCH (09:16)
[2018-08-26] MEDS: SANTYL OINT TOP SCH (14:34)
[2018-08-26] MEDS: ULTRAM ER PO SCH (21:31)
[2018-08-26] MEDS: GABAPENTIN ENACARBIL 600 MG PO SCH (21:32)
--- NOTE | 2018-08-26 21:39 | PROGRESS NOTE ---
DATE: 08/26/2018 SUBJECTIVE: The patient is a little better. Daughter was at bedside. No chest pain, shortness of breath. PHYSICAL EXAMINATION: Vital Signs: Temp is 97, pulse is 114. Vitals are stable. HEENT: Within normal limits. Chest: Bilateral air entry. Heart: Heart sounds are regular. Abdomen: Belly is soft, obese, nontender. Good bowel sounds. Extremities: Right leg swelling is much improved. INVESTIGATIONS: CBC: White cell count 8.3, hematocrit 38, platelets 468,000. Lupus inhibitor is normal. Protein X activity is normal. Protein C is normal. Antithrombin 3 is normal. Homocystine 16.7. Prealbumin 8.3. ASSESSMENT AND PLAN: 1. Rights leg deep vein thrombosis, extensive due to combination of homocystinemia, deconditioning. Continue IV heparin over the weekend. Follow up on thrombophilia workup. 2. Ischemic colitis, stable. 3. Moderate protein calorie malnutrition. Continue on Glucerna. Dietary consult. 4. GI prophylaxis with Pepcid. 5. Neurogenic bladder, stable. Continue pain control and out of the bed with Physical Therapy LEVEL OF DOCUMENTATION: 25 minutes. cc: Bradley Mcdonald MD
[2018-08-27] MEDS: HEPARIN 25,000 UNITS/D5W 25,000 UNIT/250 ML IV.SOLN IV SCH ×3 (03:38→14:34)
[2018-08-27] MEDS: ZOSYN 3.375 GM in NS 50 ML IV SCH ×4 (03:39→21:09)
[2018-08-27] MEDS: SYNTHROID PO SCH (05:28)
[2018-08-27 06:33] LABS: BASO# 0.03 X1000 (0.0-0.2); BASO% 0.4 % (0.0-0.8); EOS# 0.21 X1000 (0.0-0.7); EOS% 2.9 % (0.0-10.0); HEMATOCRIT 36.5 % (37.0-47.0); HEMOGLOBIN 11.8 g/dL (12.0-16.0); IMM GRAN# 0.07 X1000 (0.0-0.04); LYMPH# 1.69 X1000 (1.2-3.4); LYMPH% 23.6 % (20.5-51.1); MCH 29.1 PG (27-31); MCHC 32.3 g/dL (33-37); MCV 90.1 FL (81-99); MONO# 0.86 X1000 (0.11-0.59); MPV 9.8 FL (7.4-10.4); NEUT# 4.31 X1000 (1.4-6.5); NEUT% 60.1 % (42.2-75.2); PLT 448 X1000 (130-400); RBC 4.05 XMIL (4.2-5.4); RDW 16.7 % (11.5-14.5); WBC 7.17 X1000 (4.8-10.8)
[2018-08-27] MEDS: ROBAXIN PO SCH ×2 (08:55→21:12)
[2018-08-27] MEDS: PEPCID PO SCH (08:55)
[2018-08-27] MEDS: ICAR-C PO SCH ×2 (08:55→21:12)
[2018-08-27] MEDS: CENTRUM SILVER PO SCH (08:55)
[2018-08-27] MEDS: EFFEXOR PO SCH (09:00)
[2018-08-27] MEDS: SANTYL OINT TOP SCH (09:00)
[2018-08-27] MEDS: MYCOSTATIN POWDER TOP SCH ×2 (11:00→21:52)
[2018-08-27] MEDS: HALDOL IV PRN (13:54)
--- NOTE | 2018-08-27 14:17 | PROGRESS NOTE ---
DATE: 08/27/2018 SUBJECTIVE: Ms. Mendoza is feeling somewhat better. She is on IV heparin. OBJECTIVE: PTT is 66. CBC is unremarkable. She has a DVT in the right leg, history of ischemic colitis. Clostridium difficile was negative. Her vital signs are stable. Abdomen is soft, nontender. Lungs are clear. PLAN: We are going to continue with the current management. -3 cc: MD Bradley Mcarthur MD
[2018-08-27] MEDS ORDERED: HEPARIN IV ONE (14:25)
[2018-08-27] MEDS ORDERED: HEPARIN 25,000 UNITS/D5W 25,000 UNIT/250 ML IV.SOLN IV SCH ×4 (14:32→22:45)
[2018-08-27] MEDS: ULTRAM ER PO SCH (21:12)
[2018-08-27] MEDS: GABAPENTIN ENACARBIL 600 MG PO SCH (21:17)
[2018-08-28] MEDS: ZOSYN 3.375 GM in NS 50 ML IV SCH ×4 (02:26→20:58)
[2018-08-28] MEDS ORDERED: HEPARIN 25,000 UNITS/D5W 25,000 UNIT/250 ML IV.SOLN IV SCH ×2 (03:30→14:08)
[2018-08-28] MEDS: SYNTHROID PO SCH (07:03)
[2018-08-28] MEDS: EFFEXOR PO SCH (09:20)
[2018-08-28] MEDS: ICAR-C PO SCH ×2 (09:20→21:01)
[2018-08-28] MEDS: CENTRUM SILVER PO SCH (09:21)
[2018-08-28] MEDS: PEPCID PO SCH (09:21)
[2018-08-28] MEDS: ROBAXIN PO SCH ×2 (09:21→21:01)
[2018-08-28] MEDS ORDERED: VANCOMYCIN IV PER PHARMACY MISC SCH (10:30)
[2018-08-28] MEDS ORDERED: VANCOMYCIN 1.65 GM in NS 250 ML IV ONE (12:00)
--- NOTE | 2018-08-28 12:00 | PROGRESS NOTE ---
DATE: 08/28/2018 Ms. Mendoza is getting IV heparin for the DVT in the right leg. Her vital signs are stable. Urine culture reveals Staphylococcus aureus which is methicillin-resistant Staphylococcus aureus. We are going to add vancomycin on top of Zosyn on her. -9 cc: MD Bradley Mcarthur MD
[2018-08-28] MEDS: HALDOL IV PRN (12:53)
[2018-08-28] MEDS: SANTYL OINT TOP SCH (16:29)
[2018-08-28] MEDS: MYCOSTATIN POWDER TOP SCH ×2 (16:30→21:03)
[2018-08-28] MEDS: GABAPENTIN ENACARBIL 600 MG PO SCH (21:01)
[2018-08-28] MEDS: ULTRAM ER PO SCH (21:02)
[2018-08-29] MEDS: ZOSYN 3.375 GM in NS 50 ML IV SCH ×3 (04:11→14:29)
[2018-08-29] MEDS: SYNTHROID PO SCH (06:46)
[2018-08-29] MEDS ORDERED: XARELTO PO SCH (09:00)
[2018-08-29] MEDS: CENTRUM SILVER PO SCH (09:24)
[2018-08-29] MEDS: DIFLUCAN PO SCH (09:24)
[2018-08-29] MEDS: ROBAXIN PO SCH ×2 (09:24→21:01)
[2018-08-29] MEDS: EFFEXOR PO SCH (09:24)
[2018-08-29] MEDS: XARELTO PO SCH ×2 (09:25→21:01)
[2018-08-29] MEDS: ICAR-C PO SCH ×2 (09:25→21:01)
[2018-08-29] MEDS: PEPCID PO SCH (09:25)
[2018-08-29] MEDS: MYCOSTATIN POWDER TOP SCH ×2 (09:26→21:03)
[2018-08-29] MEDS: LOTRISONE CREAM TOP SCH ×2 (09:26→21:03)
[2018-08-29] MEDS: SANTYL OINT TOP SCH (09:27)
[2018-08-29] MEDS ORDERED: VANCOMYCIN 1.35 GM in NS 250 ML IV SCH (18:00)
--- NOTE | 2018-08-29 20:28 | PROGRESS NOTE ---
DATE: 08/29/2018 SUBJECTIVE: The patient is slowly getting better, more bright, eating better and no complaints. No chest pain or shortness of breath. PHYSICAL EXAM: Vital signs: Temperature is 97.4, pulse is 84, blood pressure is 112/57. HEENT: Within normal limits. Neck: Supple. No lymphadenopathy. Chest: Bilateral air entry. Heart: Sounds are regular. Abdomen: Belly is soft, nontender. Extremities: Right leg swelling is much better. LABORATORY DATA: Urine cultures Staphylococcus aureus, presumptive for MRSA. C. difficile was negative. ASSESSMENT AND PLAN: 1. Right leg deep vein thrombosis due to combination of deconditioning and hyperhomocystinemia. Antiphospholipid antibody is negative. Discontinue IV heparin. We will change to the Xarelto. 2. Neurogenic bladder with methicillin-resistant Staphylococcus aureus on IV vancomycin. We will discontinue Zosyn. 3. Hypothyroid on Synthroid. Rash in both armpits consistent with candidiasis on Lotrisone cream. 4. 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 LEVEL OF DOCUMENTATION: 25 minutes. cc: Bradley Mcdonald MD
[2018-08-29] MEDS: GABAPENTIN ENACARBIL 600 MG PO SCH (21:01)
[2018-08-29] MEDS: ULTRAM ER PO SCH (21:01)
[2018-08-30] MEDS: SYNTHROID PO SCH (05:36)
[2018-08-30] MEDS: EFFEXOR PO SCH (08:42)
[2018-08-30] MEDS: PEPCID PO SCH (08:42)
[2018-08-30] MEDS: ICAR-C PO SCH ×2 (08:42→21:50)
[2018-08-30] MEDS: FOLTX PO SCH (08:42)
[2018-08-30] MEDS: ROBAXIN PO SCH ×2 (08:42→21:51)
[2018-08-30] MEDS: CENTRUM SILVER PO SCH (08:42)
[2018-08-30] MEDS: XARELTO PO SCH ×2 (08:42→21:50)
[2018-08-30] MEDS: DIFLUCAN PO SCH (08:42)
[2018-08-30] MEDS: SANTYL OINT TOP SCH (08:43)
[2018-08-30] MEDS: MYCOSTATIN POWDER TOP SCH ×2 (08:43→21:51)
[2018-08-30] MEDS: LOTRISONE CREAM TOP SCH ×2 (08:43→21:51)
--- NOTE | 2018-08-30 21:42 | PROGRESS NOTE ---
DATE: 08/30/2018 SUBJECTIVE: The patient is eating better in between confusion. OBJECTIVE: Vital signs: Temperature is 98 degrees, pulse 92, blood pressure is stable. HEENT: Within normal limits. Respiratory: Poor air entry. Cardiovascular: Heart sounds are regular. Abdomen: Belly is soft, nontender. Extremities: Right leg swelling is much improved. ASSESSMENT AND PLAN: 1. Right leg deep venous thrombosis. Thrombophilia workup is pending, and now she is on Xarelto 15 p.o. b.i.d. 2. 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 3. Candidal rash in both armpits on Diflucan and clotrimazole. 4. Depression on Effexor. 5. Poor intravenous access. Change the medicines to by mouth. 6. Methicillin-resistant Staphylococcus aureus in the urine, mostly contaminate. 7. Neurogenic bladder due to Robaxin and out of the bed today. We will discuss with the family for disposition. LEVEL OF DOCUMENTATION: 35 minutes. cc: Bradley Mcdonald MD
[2018-08-30] MEDS: GABAPENTIN ENACARBIL 600 MG PO SCH (21:50)
[2018-08-30] MEDS: ULTRAM ER PO SCH (21:50)
[2018-08-31] MEDS: SYNTHROID PO SCH (05:45)
[2018-08-31] MEDS: SANTYL OINT TOP SCH (08:00)
[2018-08-31] MEDS: EFFEXOR PO SCH (08:16)
[2018-08-31] MEDS: XARELTO PO SCH ×3 (08:16→22:27)
[2018-08-31] MEDS: DIFLUCAN PO SCH (08:16)
[2018-08-31] MEDS: CENTRUM SILVER PO SCH (08:16)
[2018-08-31] MEDS: ROBAXIN PO SCH ×3 (08:16→22:26)
[2018-08-31] MEDS: FOLTX PO SCH (08:16)
[2018-08-31] MEDS: PEPCID PO SCH (08:16)
[2018-08-31] MEDS: ICAR-C PO SCH ×3 (08:16→22:26)
[2018-08-31] MEDS: LOTRISONE CREAM TOP SCH ×3 (11:00→22:27)
[2018-08-31] MEDS: MYCOSTATIN POWDER TOP SCH ×3 (11:00→22:27)
[2018-08-31] MEDS ORDERED: STERILE WATER INJ. INJ PRN (14:07)
[2018-08-31] MEDS: GEODON IM PRN (14:51)
[2018-08-31] MEDS: ULTRAM ER PO SCH (19:56)
[2018-08-31] MEDS: GABAPENTIN ENACARBIL 600 MG PO SCH (19:57)
--- NOTE | 2018-08-31 20:20 | PROGRESS NOTE ---
DATE: 08/31/2018 SUBJECTIVE: Patient is very belligerent, agitated, pulling the IV out, not eating well. PHYSICAL EXAMINATION: Vital Signs: Temperature is 97 degrees. Vitals are stable. HEENT: Within normal limits. Neck: Supple. Chest: Clear. Heart: Sounds are regular. : Murphy was placed. Skin: Stage I pressure ulcers noted. INVESTIGATIONS: None. ASSESSMENT AND PLAN: 1. Deep venous thrombosis in the right leg, on Xarelto 15 p.o. b.i.d. 2. Hyperhomocystinemia, on Folbic acid. 3. Agitation. Geodon was intramuscular. 4. Poor intravenous access due to pulling the intravenous out. 5. Candidal rash, on clotrimazole. 6. Not eating well. Consult Dietary for calorie count. 7. Discussed with the family it is frustrating about her progress for the last 6 months. We are slowly leaning toward palliative care, and will follow up. LEVEL OF DOCUMENTATION: 25 minutes. cc: Bradley Mcdonald MD
[2018-09-01] MEDS: SYNTHROID PO SCH (05:12)
[2018-09-01] MEDS: DIFLUCAN PO SCH (08:04)
[2018-09-01] MEDS: XARELTO PO SCH ×2 (08:04→23:16)
[2018-09-01] MEDS: ICAR-C PO SCH ×2 (08:04→23:17)
[2018-09-01] MEDS: CENTRUM SILVER PO SCH (08:04)
[2018-09-01] MEDS: PEPCID PO SCH (08:04)
[2018-09-01] MEDS: EFFEXOR PO SCH (08:04)
[2018-09-01] MEDS: FOLTX PO SCH (08:05)
[2018-09-01] MEDS: MYCOSTATIN POWDER TOP SCH ×2 (08:06→23:24)
[2018-09-01] MEDS: ROBAXIN PO SCH ×2 (08:06→23:16)
[2018-09-01] MEDS: LOTRISONE CREAM TOP SCH ×2 (08:07→23:24)
[2018-09-01] MEDS: SANTYL OINT TOP SCH (13:11)
[2018-09-01] MEDS: GEODON IM PRN (15:59)
--- NOTE | 2018-09-01 21:45 | PROGRESS NOTE ---
DATE: 09/01/2018 SUBJECTIVE: The patient is a little bit docile, more crying spell. No family is around. OBJECTIVE: Vital signs: Temperature is 97, pulse is 100, blood pressure is 108/70. HEENT Exam: Within normal limits. Chest: Clear. Cardiovascular: Heart sounds are regular. Abdomen: Belly is soft, nontender. Neurologic: No obvious deficits. ASSESSMENT: 1. Right-sided deep venous thrombosis. 2. Homocystinemia. 3. Stage I pressure ulcers. 4. Moderate protein calorie malnutrition and candidiasis on both armpits. PLAN OF CARE: 1. Pressure ulcer care. 2. Dietary consult. 3. Xarelto as directed for the DVT. 4. Hypothyroidism on Synthroid. LEVEL OF DOCUMENTATION: 25 minutes. cc: Bradley Mcdonald MD
[2018-09-01] MEDS: GABAPENTIN ENACARBIL 600 MG PO SCH (23:16)
[2018-09-01] MEDS: ULTRAM ER PO SCH (23:16)
[2018-09-02] MEDS: SYNTHROID PO SCH (06:07)
[2018-09-02 09:40] LABS: BASO# 0.05 X1000 (0.0-0.2); BASO% 0.5 % (0.0-0.8); EOS# 0.19 X1000 (0.0-0.7); EOS% 1.9 % (0.0-10.0); HEMATOCRIT 40.2 % (37.0-47.0); HEMOGLOBIN 13.2 g/dL (12.0-16.0); IMM GRAN# 0.07 X1000 (0.0-0.04); IMM GRAN% 0.7 % (0.0-0.5); LYMPH# 2.82 X1000 (1.2-3.4); LYMPH% 28.2 % (20.5-51.1); MCH 29.5 PG (27-31); MCHC 32.8 g/dL (33-37); MCV 89.9 FL (81-99); MONO# 1.04 X1000 (0.11-0.59); MONO% 10.4 % (1.7-9.3); MPV 9.5 FL (7.4-10.4); NEUT# 5.82 X1000 (1.4-6.5); NEUT% 58.3 % (42.2-75.2); PLT 515 X1000 (130-400); RBC 4.47 XMIL (4.2-5.4); RDW 16.7 % (11.5-14.5); WBC 9.99 X1000 (4.8-10.8)
[2018-09-02 09:56] LABS: AGAP 10; ALB/GLOB RATIO 0.8; ALBUMIN 2.6 g/dL (3.5-5.0); ALKALINE PHOSPHATASE 151 U/L (32-104); BUN 7 mg/dL (8-22); CALCIUM 9.3 mg/dL (8.8-10.2); CHLORIDE 97 mmol/L (98-107); COSMO 268; CREATININE 0.5 mg/dL (0.5-0.9); ESTIMATED GFR > 60; GLUCOSE 132 mg/dL (70-104); GOT 30 U/L (10-30); GPT 9 U/L (10-36); POTASSIUM 3.9 mmol/L (3.5-5.1); SODIUM 134 mmol/L (136-145); TCO2 27 mmol/L (25-35); TOTAL BILIRUBIN 0.34 mg/dL (0.20-1.00); TOTAL PROTEIN 5.7 g/dL (6.3-8.3)
[2018-09-02 10:41] LABS: SED RATE 23 mm/hr (0-20)
[2018-09-02 10:50] LABS: FREE T4 1.14 ng/dL (0.93-1.70); TSH 2.18 uIUmL (0.27-4.20)
[2018-09-02] MEDS: EFFEXOR PO SCH (11:15)
[2018-09-02] MEDS: ELIQUIS PO SCH ×2 (11:15→20:01)
[2018-09-02] MEDS: ROBAXIN PO SCH ×2 (11:16→21:33)
[2018-09-02] MEDS: SEROQUEL PO SCH ×2 (11:16→21:33)
[2018-09-02] MEDS: PEPCID PO SCH (11:17)
[2018-09-02] MEDS: ICAR-C PO SCH ×2 (11:17→20:01)
[2018-09-02] MEDS: FOLTX PO SCH (11:17)
[2018-09-02] MEDS: CENTRUM SILVER PO SCH (11:17)
[2018-09-02] MEDS: MYCOSTATIN POWDER TOP SCH ×2 (11:19→20:02)
[2018-09-02] MEDS: LOTRISONE CREAM TOP SCH ×2 (11:20→20:02)
[2018-09-02] MEDS: SANTYL OINT TOP SCH (14:55)
--- NOTE | 2018-09-02 17:20 | CONSULTATION ---
DATE OF CONSULTATION: 09/02/2018 SUBJECTIVE: Ms. Mendoza is 77 years old and she was admitted 9 days ago with right leg swelling and evidence of DVT. That problem has been managed. She has become agitated and confused. She has had declining performance with physical therapy associated with poor attention and sometimes refusal to get up. There has not been altered awareness, unconsciousness or unresponsiveness. I have reviewed the hospital record including previous admissions showing no definite comment regarding prior altered mental status, confusion, cognitive impairment. She has not had a focal neurologic problem. We do not have recent brain imaging report. Noncontrast CT of the head 09/29/2012 showed usual age-related changes. Lab work this admission includes sodium 134, alkaline phosphatase 151, which is chronic, blood sugars ranging mid 100 to low 200s. We do not have urine drug screen this admission. She takes thyroid medicine chronically. Thyroid stimulating hormone was 8.51 on admission last month. We do not have recent T4 level. She has been afebrile. Systolic blood pressures have ranged 90s to 140s in the last few days. Heart rate has ranged 70s to 100s in the last few days. She received 2 doses of ziprasidone 10 mg, last about 18 hours ago. She received 2 doses of haloperidol 0.5 mg, last about 5 days ago. Quetiapine was ordered to start today. She takes tramadol 300 mg daily chronically. OBJECTIVE: On exam, Ms. Mendoza is awake, alert, mostly attentive. She answered some simple questions correctly and then answered inappropriately. She gave me the name of "Epi" when I asked her name. She told me that she was related to some other Bumpuses, but did not provide names. She made comment that she was in the hospital "to have a baby, but they have not told me that yet." A little bit of noise in the hallway startled her inappropriately. She did not name the President or discuss recent news. She did not answer when I asked her to provide the day of the week and the month. There was confabulation. Speech is not dysarthric. Language function is intact on brief bedside testing. I was not able to assess recent or remote memory. Head and neck are unremarkable. There is no meningismus. She has full visual light tested briefly and her attention was not sustained for more careful testing. Extraocular movements are full. Facial motility is symmetric. Limb tone is symmetric. She did not cooperate with formal individual motor testing in the limbs, but did demonstrate good power in all limbs. Plantar response is silent bilaterally. Right leg is larger than the left and this may be the edema reported on admission. The left upper leg muscle bulk appears diminished but may be symmetric with the right. I did not find fasciculation. Reflexes are absent at the ankles. She was not attentive to proprioception testing. I did not test her gait. ASSESSMENT/PLAN: Global encephalopathy, uncertain etiology. There are some features of delirium, agitated confusion, likely hallucination, increased startle and confabulation. Most likely scenario would be a pre-existing, baseline cognitive impairment syndrome with acute/subacute exacerbation associated with toxic or metabolic etiology. However, I cannot document there is pre- existing cognitive impairment and this may be all acute/subacute. She was very inconsistent in answering questions regarding prior ethanol use. I believe that she is a assisted resident, so I doubt recent illicit drug use or recent misuse of her prescription medicines. I do not see anything in the recent lab work that would likely be associated with encephalopathy. None of these features are typical of seizure. I agree with managing with antipsychotic medication. Quetiapine has been started and I hope she will get some benefit. Ziprasidone could be repeated for more urgent management, if needed. I do not know what history she has with benzodiazepine, but low-dose benzodiazepine might be considered if agitation is increased. I do not know that she would cooperate at this time and I do not think we have to do anything urgently but brain imaging and EEG would be considerations if neurologic workup is needed. Thanks for asking me to see Ms. Mendoza. I wish I could say something more certain. cc: MD Bradley Ríos III, MD MTDD
--- NOTE | 2018-09-02 20:00 | PROGRESS NOTE ---
DATE: 09/02/2018 SUBJECTIVE: The patient was very belligerent, agitated for the last 3 days. The daughter was really upset. Wants a second opinion. She is not eating. The nurses told me she is eating with applesauce. The only new medicines added on are Diflucan and Xarelto. The patient thinks Xarelto is causing the problem. Never had any blood test. EXAMINATION: VITAL SIGNS: Temperature is 98.5, pulse is 106, blood pressure is 100/63, 97% on room air. HEENT: Within normal limits. Neck: Supple. No lymphadenopathy. Chest: Bilateral air entry. Heart: Sounds are regular. Abdomen: Belly is soft, nontender. Good bowel sounds. No neurological deficits. INVESTIGATIONS: CBC: White cell count 9.9, hematocrit 40, platelets 515. Sedimentation rate is 23. Sodium 134, potassium 3.9, chloride 97, BUN 7, creatinine 0.5. LFTs were normal. Albumin 2.6. Thyroid function test was normal. ASSESSMENT AND PLAN: 1. Dementia with agitation. Seroquel was started. 2. Neurology consult as per the patient's daughter. 3. Living will is Full Code. 4. Candidiasis in both armpits, better. 5. Stage I pressure ulcers on DuoDERM patch. 6. Neurogenic bladder, on Murphy. 7. Right lower lobe pneumonia, stable. 8. Deep vein thrombosis in the right leg due to deconditioning as well as homocystinemia. Plan is changing the Xarelto to Eliquis.. 9. Also protein calorie malnutrition. Dietary consult. 10. Depression on Effexor. 11. 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 LEVEL OF DOCUMENTATION: 35 minutes. cc: Bradley Mcdonald MD
[2018-09-02] MEDS: ULTRAM ER PO SCH (21:33)
[2018-09-02] MEDS: GABAPENTIN ENACARBIL 600 MG PO SCH (21:33)
[2018-09-03] MEDS: SYNTHROID PO SCH (06:26)
--- NOTE | 2018-09-03 08:26 | PROGRESS NOTE ---
DATE: 09/03/2018 77-year-old, white female patient, admitted with DVT involving the right leg. The patient is on anticoagulation, tolerating medication well. No bleeding. The patient did have some confusion and hallucinations which seems to be getting better according to nurse. The patient denied any chest pain or palpitations. No nausea or vomiting. No chest pain. Denied any headache. No runny nose, stuffy nose. PAST MEDICAL HISTORY: Significant for diabetes diet controlled, hyperlipidemia, gallstone, hypertension, ischemic colitis, neurogenic bladder, multiple feet deformity, stage I pressure ulcer on the sacral area, hypothyroidism, depression and anxiety. PAST SURGICAL HISTORY: Right hip fracture with intramedullary nailing, right 3rd toe amputation. OBJECTIVE: Vital Signs: Blood pressure 132/77, pulse 110, respiration 18, temperature 97.7 degrees, O2 saturation was 98%. Skin: Senile turgor. Head atraumatic, normocephalic. [place] conjunctivae. Anicteric sclerae. Extraocular muscle movement normal. Fundus cannot be penetrated. Good oral hygiene. No tonsillopharyngeal congestion or exudate. Ears and nose benign. Neck: Supple. No JVD. Lungs: Bibasilar crepitations. Heart: S1 and S2 heard. Abdomen: Soft. No distention. Bowel sounds present. Extremities: Patient does have swelling of the right leg. 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 LABORATORY DATA: Done yesterday reviewed. Her hemoglobin 13.2, hematocrit 40.2, platelet count was 515,000. WBC count 9.99. Electrolytes were fairly benign. CONSIDERATION: 1. DVT right leg. On Eliquis, tolerating medication well. 2. Hypothyroidism on Synthroid, doing better. 3. Osteoarthritis. 4. The patient does have rash of [place] both the armpits. Patient had Lotrisone cream ordered. 5. Neurogenic bladder. The patient had a Murphy catheter. 6. Right lower lobe pneumonia. 7. Protein calorie malnutrition. 8. Depression on Effexor. 9. 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 Overall the patient is doing well. We will continue current treatment and close observation. I am going to repeat blood work tomorrow. cc: MD Bradley Cesar MD
[2018-09-03] MEDS: EFFEXOR PO SCH (10:37)
[2018-09-03] MEDS: ROBAXIN PO SCH ×2 (10:37→21:37)
[2018-09-03] MEDS: ELIQUIS PO SCH ×2 (10:37→21:37)
[2018-09-03] MEDS: PEPCID PO SCH (10:38)
[2018-09-03] MEDS: ICAR-C PO SCH ×2 (10:38→21:37)
[2018-09-03] MEDS: FOLTX PO SCH (10:38)
[2018-09-03] MEDS: CENTRUM SILVER PO SCH (10:38)
[2018-09-03] MEDS: SEROQUEL PO SCH ×2 (10:39→21:36)
[2018-09-03] MEDS: LOTRISONE CREAM TOP SCH ×2 (10:50→21:44)
[2018-09-03] MEDS: MYCOSTATIN POWDER TOP SCH ×2 (10:51→21:44)
[2018-09-03] MEDS: SANTYL OINT TOP SCH (14:00)
[2018-09-03] MEDS: ULTRAM ER PO SCH (21:36)
[2018-09-03] MEDS: GABAPENTIN ENACARBIL 600 MG PO SCH (21:36)
[2018-09-04] MEDS: SYNTHROID PO SCH (06:16)
[2018-09-04 07:09] LABS: BASO# 0.04 X1000 (0.0-0.2); BASO% 0.4 % (0.0-0.8); EOS# 0.17 X1000 (0.0-0.7); EOS% 1.8 % (0.0-10.0); HEMATOCRIT 40.3 % (37.0-47.0); HEMOGLOBIN 13.3 g/dL (12.0-16.0); IMM GRAN# 0.05 X1000 (0.0-0.04); IMM GRAN% 0.5 % (0.0-0.5); LYMPH# 2.32 X1000 (1.2-3.4); LYMPH% 24.8 % (20.5-51.1); MCH 29.4 PG (27-31); MCV 89.2 FL (81-99); MONO# 1.08 X1000 (0.11-0.59); MONO% 11.5 % (1.7-9.3); NEUT# 5.71 X1000 (1.4-6.5); PLT 552 X1000 (130-400); RBC 4.52 XMIL (4.2-5.4); WBC 9.37 X1000 (4.8-10.8)
[2018-09-04 07:38] LABS: AGAP 7; ALB/GLOB RATIO 0.8; ALBUMIN 2.6 g/dL (3.5-5.0); ALKALINE PHOSPHATASE 138 U/L (32-104); BUN 8 mg/dL (8-22); CALCIUM 8.8 mg/dL (8.8-10.2); CHLORIDE 99 mmol/L (98-107); COSMO 270; CREATININE 0.5 mg/dL (0.5-0.9); ESTIMATED GFR > 60; GLUCOSE 102 mg/dL (70-104); GOT 33 U/L (10-30); GPT 10 U/L (10-36); MAGNESIUM 1.5 mg/dL (1.5-2.7); PHOSPHORUS 3.1 mg/dL (2.7-4.5); POTASSIUM 3.3 mmol/L (3.5-5.1); SODIUM 136 mmol/L (136-145); TCO2 30 mmol/L (25-35); TOTAL BILIRUBIN 0.29 mg/dL (0.20-1.00); TOTAL PROTEIN 5.9 g/dL (6.3-8.3)
[2018-09-04] MEDS ORDERED: KLOR-CON PO ONE (09:27)
[2018-09-04] MEDS ORDERED: MAGNESIUM SULFATE 2 GM/S.W.I. 2 GM/50 ML IVPB IV ONE (09:27)
--- NOTE | 2018-09-04 09:43 | PROGRESS NOTE ---
DATE: 09/04/2018 SUBJECTIVE: Ms. Mendoza is doing better. The patient still has some confusion and disorientation, though the patient claims she is feeling much better. No high-grade fever or chills. No nausea or vomiting. Oral intake seems to be getting better. No typical chest pain. OBJECTIVE: Vital Signs: Blood pressure 134/83, pulse 102, respirations 18, temperature 97.8 degrees. Skin: Senile turgor. Neck: Supple. No JVD. Lungs: Bibasilar crepitation. Heart: S1 and S2. Tachycardia. Abdomen: Soft, nontender. Bowel sounds present. 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 LABORATORY DATA: Today, WBC count 9.37, hemoglobin 13.3, hematocrit 40.3, platelet count 552,000. Her electrolytes did reveal mild hypokalemia. Magnesium was 1.5. Her TSH done yesterday was 2.18. Free T4 of 1.14. ASSESSMENT: The patient's problems include: 1. Right lower lobe pneumonia. 2. Deep venous thrombosis involving the right leg. 3. Dementia with agitation. 4. Depression. 5. Hypokalemia. 6. Homocystinemia. Dr. Obrien's recommendations noted. Plan is to continue current treatment and close observation. Will continue current treatment. I will supplement potassium and magnesium. cc: MD Bradley Cesar MD
[2018-09-04] MEDS: ELIQUIS PO SCH ×2 (09:46→23:56)
[2018-09-04] MEDS: SEROQUEL PO SCH ×2 (09:46→23:56)
[2018-09-04] MEDS: CENTRUM SILVER PO SCH (09:47)
[2018-09-04] MEDS: EFFEXOR PO SCH (09:47)
[2018-09-04] MEDS: PEPCID PO SCH (09:47)
[2018-09-04] MEDS: ICAR-C PO SCH ×2 (09:47→23:56)
[2018-09-04] MEDS: ROBAXIN PO SCH ×2 (09:47→23:56)
[2018-09-04] MEDS: FOLTX PO SCH (09:48)
[2018-09-04] MEDS: LOTRISONE CREAM TOP SCH ×2 (09:49→23:57)
[2018-09-04] MEDS: MYCOSTATIN POWDER TOP SCH ×2 (09:50→23:57)
[2018-09-04] MEDS: SANTYL OINT TOP SCH (14:00)
[2018-09-05] MEDS: ULTRAM ER PO SCH ×2 (00:06→21:46)
[2018-09-05] MEDS: GABAPENTIN ENACARBIL 600 MG PO SCH ×2 (00:19→21:47)
[2018-09-05] MEDS: SYNTHROID PO SCH (06:33)
[2018-09-05] MEDS: SANTYL OINT TOP SCH (10:04)
[2018-09-05] MEDS: CENTRUM SILVER PO SCH (10:04)
[2018-09-05] MEDS: ICAR-C PO SCH ×2 (10:04→21:46)
[2018-09-05] MEDS: EFFEXOR PO SCH (10:04)
[2018-09-05] MEDS: PEPCID PO SCH (10:04)
[2018-09-05] MEDS: FOLTX PO SCH (10:04)
[2018-09-05] MEDS: ELIQUIS PO SCH ×2 (10:04→21:46)
[2018-09-05] MEDS: ROBAXIN PO SCH ×2 (10:04→21:46)
[2018-09-05] MEDS: SEROQUEL PO SCH ×2 (10:04→21:46)
[2018-09-05] MEDS: MYCOSTATIN POWDER TOP SCH ×2 (10:05→21:48)
[2018-09-05] MEDS: LOTRISONE CREAM TOP SCH ×2 (10:05→21:49)
[2018-09-05] MEDS: CLINIMIX E 4.25%-5% SOLUTION 1,000 ML IV SCH (10:14)
--- NOTE | 2018-09-05 11:06 | PROGRESS NOTE ---
DATE: 09/05/2018 LOCATION: Room 437A. SUBJECTIVE: Ms. Mendoza has had a stable course over the weekend. OBJECTIVE: This morning, she told me that she is "in the bowling alley at the hospital, waiting to have my baby." She was not able to identify the hospital by name. She did not answer questions appropriately. Speech is not dysarthric. Language is intact. I could not test her memory due to poor attention. There is no focal neurologic finding on brief bedside testing. Neck is supple. I do not have any new suggestion from Neurology standpoint. I still wonder about her baseline cognitive function. We might increase quetiapine. If she has not had previous Psychiatry evaluation, that would be reasonable. Thank you for asking Neurology to see Ms. Mendoza. cc: MD Bradley Ríos III, MD MTDD
--- NOTE | 2018-09-05 12:04 | Diag Imaging Result Doc PS360 ---
EXAM: KUB ABDOMEN HISTORY: abdominal pain, impacted TECHNIQUE: Abdomen single view COMPARISON: 06/01/2018 FINDINGS: There is a large amount of stool in the distal colon and rectum. Severe atherosclerosis. Mild scoliosis with severe degenerative changes to the lumbar spine. No organomegaly. There are multiple pelvic phleboliths. IMPRESSION: Fecal impaction Electronically signed by Ruddy Samuel 09/05/2018 12:02 PM
[2018-09-05] MEDS: DULCOLAX PR SCH (12:25)
[2018-09-05] MEDS: MIRALAX PO SCH (12:26)
[2018-09-05] MEDS ORDERED: FLEET ENEMA PR ONE (12:31)
[2018-09-05] MEDS ORDERED: THIAMINE IM SCH (16:30)
--- NOTE | 2018-09-05 21:27 | PROGRESS NOTE ---
DATE: 09/05/2018 SUBJECTIVE: The patient's agitation is better. Eating well. Family is at bedside. Interval history was reviewed from Dr. Obrien. REVIEW OF SYSTEMS: Constipation noted. PHYSICAL EXAMINATION: Vital signs: Temperature is 98, pulse 104, blood pressure stable. HEENT: Within normal limits. Neck: Supple. Chest: Bilateral air entry. Heart: Sounds are regular. Abdomen: Belly is soft, nontender. No signs of peritonitis. Neurologic: No neurological deficits. INVESTIGATIONS: CBC: White cell count 9.3, hematocrit 40, platelets 552,000. SMA 7: Sodium 136, potassium 3.3. LFTs were normal. Total protein 5.9. KUB: Constipation noted. ASSESSMENT AND PLAN: 1. Altered mental status delirium improving with Seroquel. 2. Neurogenic bladder on Murphy. 3. Candidiasis of both armpits, better. 4. Deep vein thrombosis on the right side, on Eliquis 5 mg p.o. b.i.d. 5. 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 6. Poor nutritional status. Albumin 2.5. Continue to increase oral nutrition. 7. Constipation. We will use some Dulcolax, MiraLAX. 8. Nutrition IV Clinimix and then will follow up. LEVEL OF DOCUMENTATION: 25 minutes. cc: Bradley Mcdonald MD
[2018-09-06] MEDS: CLINIMIX E 4.25%-5% SOLUTION 1,000 ML IV SCH ×2 (01:24→18:34)
[2018-09-06] MEDS: SYNTHROID PO SCH (07:38)
[2018-09-06] MEDS: MIRALAX PO SCH ×2 (09:09)
[2018-09-06] MEDS: ROBAXIN PO SCH ×2 (09:10→20:54)
[2018-09-06] MEDS: EFFEXOR PO SCH (09:10)
[2018-09-06] MEDS: FOLTX PO SCH (09:11)
[2018-09-06] MEDS: SEROQUEL PO SCH ×2 (09:11→20:54)
[2018-09-06] MEDS: PEPCID PO SCH (09:11)
[2018-09-06] MEDS: ICAR-C PO SCH ×2 (09:11→20:54)
[2018-09-06] MEDS: ELIQUIS PO SCH ×2 (09:11→20:54)
[2018-09-06] MEDS: SANTYL OINT TOP SCH (09:12)
[2018-09-06] MEDS: DULCOLAX PR SCH (09:12)
[2018-09-06] MEDS: LOTRISONE CREAM TOP SCH (09:13)
[2018-09-06] MEDS: MYCOSTATIN POWDER TOP SCH (09:13)
--- NOTE | 2018-09-06 09:15 | PROGRESS NOTE ---
DATE: 09/06/2018 LOCATION: Room 437A. Ms. Mendoza is awake and alert. She is attentive today. She seems more calm and more measured in her responses. Still, she seemed unable to provide correct information regarding orientation. Speech is not dysarthric. Language function appears intact. Wernicke encephalopathy seems very unlikely, but I added thiamine yesterday as a precaution. I hope she will improve with antipsychotic management. She seems to be tolerating current quetiapine dose. I would continue that and follow clinically. Again, I do not know her baseline. I do not know whether or not she has had previous psychosis, delirium, cognitive impairment. Thank you for asking Neurology to see Ms. Mendoza. cc: MD Bradley Ríos III, MD MTDD
[2018-09-06] MEDS: CENTRUM SILVER PO SCH (09:29)
--- NOTE | 2018-09-06 19:15 | PROGRESS NOTE ---
DATE: 09/06/2018 SUBJECTIVE: Patient is getting better and IV Clinimix is going constipated. Confusion is improving. Patient's family wants to go for rehab. PHYSICAL EXAMINATION: Vital signs: Temperature is 98 degrees. Vitals are stable. HEENT: Within normal limits. Neck: Supple. No lymphadenopathy. Chest: Bilateral air entry. Heart: Sounds are regular. Abdomen: Belly is soft, nontender. Good bowel sounds. Neurologic: No neurological deficits. INVESTIGATIONS: None reported. ASSESSMENT AND PLAN: 1. Altered mental status, due to delirium, with constipation. Continue on Dulcolax. 2. Deep venous thrombosis in the right leg, on Eliquis. 3. Intravenous Clinimix. 4. Disposition. Will go for rehab. LEVEL OF DOCUMENTATION: 25 minutes. cc: Bradley Mcdonald MD
[2018-09-06] MEDS: ULTRAM ER PO SCH (20:55)
[2018-09-06] MEDS: GABAPENTIN ENACARBIL 600 MG PO SCH (20:55)
[2018-09-07] MEDS: LOTRISONE CREAM TOP SCH ×2 (05:06→09:03)
[2018-09-07] MEDS: SYNTHROID PO SCH (05:07)
[2018-09-07] MEDS: MYCOSTATIN POWDER TOP SCH ×2 (05:07→09:02)
[2018-09-07] MEDS: EFFEXOR PO SCH (08:58)
[2018-09-07] MEDS: FOLTX PO SCH (08:59)
[2018-09-07] MEDS: ROBAXIN PO SCH (08:59)
[2018-09-07] MEDS: ICAR-C PO SCH (08:59)
[2018-09-07] MEDS: CENTRUM SILVER PO SCH (08:59)
[2018-09-07] MEDS: SEROQUEL PO SCH (08:59)
[2018-09-07] MEDS: DULCOLAX PR SCH (09:00)
[2018-09-07] MEDS: ELIQUIS PO SCH (09:00)
[2018-09-07] MEDS ORDERED: MIRALAX PO SCH (09:00)
[2018-09-07] MEDS ORDERED: THIAMINE IV SCH (09:00)
[2018-09-07] MEDS ORDERED: THIAMINE 100 MG in NS 50 ML IV SCH (09:00)
[2018-09-07] MEDS: MIRALAX PO SCH (09:01)
[2018-09-07] MEDS: SANTYL OINT TOP SCH (09:02)
[2018-09-07] MEDS: PEPCID PO SCH (09:02)
--- NOTE | 2018-09-07 09:17 | PROGRESS NOTE ---
DATE: 09/07/2018 Ms. Mendoza remains awake, alert, mostly attentive. She seems cheerful and pleasant today. She did not answer questions correctly regarding orientation. I do not see anything new on limited neurologic exam. She has a few more doses of thiamine ordered. Quetiapine is on board. No new suggestions from neurology standpoint. Thanks for asking us to see Ms. Mendoza. cc: MD Bradley Ríos III, MD MTDD
--- NOTE | 2018-09-07 09:33 | DISCHARGE SUMMARY ---
ADMISSION DATE: 08/24/2018 DISCHARGE DATE: 09/07/2018 DISCHARGING DIAGNOSIS: Deep venous thrombosis in the right leg due to deconditioning and hyperhomocystinemia. SECONDARY DIAGNOSES: 1. Neurogenic bladder, status post indwelling Murphy catheter. 2. Stage I pressure ulcer. 3. Dementia with agitation. 4. History of gallstones, asymptomatic. 5. Protein calorie malnutrition, moderate. 6. History of ischemic colitis. 7. Constipation. 8. Hypothyroidism. 9. Depression with anxiety. CONSULTS: Dr. Obrien. BRIEF HISTORY AND HOSPITAL COURSE: 1. Please see the H and P that was done on 08/24/2018. In brief, she is a 77-year-old, white female with the above problems who was admitted directly from my office after she was found to have a DVT in the right leg from the common femoral vein all the way down. As a part of the workup, hypercoagulable state is positive for hyperhomocystinemia for which the patient was given B12 and folic acid. 2. Mental confusion due to delirium with underlying dementia requiring Seroquel. The patient was found to have constipation requiring Dulcolax, Fleet enema, and MiraLAX. 3. Neurogenic bladder with MRSA infection which was treated. We will treat UTI only there are symptoms and signs of infection. 4. Pressure ulcer on the back. Needs a Roho mattress and DuoDERM patches. 5. Protein-calorie malnutrition, requiring enteral feeding. 6. History of ischemic colitis, stable. 7. At the time of discharge, the patient is mentally stable. LABS: 1. CBC: White cell count 9.3, hematocrit 40, platelets 552,000. Sedimentation rate is 23. SMA 7: Sodium 136, potassium 3.3, chloride 99, BUN is 8, creatinine 0.5. LFTs were normal. TSH and T4 were normal. 2. Thrombophilia workup was negative for antiphospholipid syndrome, prothrombin gene. 3. Chest x-ray was stable. DISCHARGE INSTRUCTIONS: At the request of the family, patient is transferred to [facility] [place] with the following instructions. 1. Living will is Full Code. 2. Icar-C Plus 1 tablet p.o. b.i.d., Robaxin 500 p.o. b.i.d., Centrum Silver 1 tablet daily, Synthroid 50 mcg daily, tramadol 300 daily, Effexor 37.5 daily, Neurontin 600 daily, Seroquel 50 p.o. b.i.d., nystatin power 10 g b.i.d. in both armpits, Dulcolax 10 mg daily, Eliquis 5 mg p.o. b.i.d. for at least 6 weeks, Pepcid 20 mg daily, Foltx 1 tablet daily. 3. Aggressive physical therapy. cc: Bradley Mcdonald MD
[2018-09-07 13:05] VITALS: BP 106/60
== END 2018-09-07 13:31 | DRG 299 ==
LOC: DIRADM 17:10 → 4N 17:23
PROVIDERS: ADMIT Internal Medicine; ATTEND Internal Medicine
CPT/HCPCS: 71020; 71046; 74000; 74018; 80053; 81240; 83090; 83735; 84100; 84134; 84439; 84443; 85025; 85300; 85301; 85302; 85306; 85612; 85613; 85651; 85730; 86147; 87077; 87088; 87186; 87324; 94761; 94799; 97110; 97162; 97530; A9270; J1630; J1644; J2543; J3370; J3411; J3475; J3486; J7050; S0028